=== PATIENT | female | born 1935 | race Caucasian/White ===

== ENCOUNTER → 2017-02-07 | Outpatient (CLI) | payer MEDICARE ==
--- NOTE | 2017-02-13 10:50 | MM ---
Reason for exam: screening (asymptomatic). Last mammogram was performed 8 years and 4 months ago. History: Patient is postmenopausal and history of other cancer. Physical Findings: A clinical breast exam by your physician is recommended on an annual basis and results should be correlated with mammographic findings. MG 3D Screening Mammo W/Cad Bilateral CC and MLO view(s) were taken. Prior study comparison: September 29, 2008, bilateral digital screening mammogram. There are scattered fibroglandular densities. Finding: There are typically benign round, linear calcifications. There is no discrete abnormality. No significant changes in finding since September 29, 2008. ASSESSMENT: Benign, BI-RAD 2 RECOMMENDATION: Routine screening mammogram of both breasts in 1 year.
== END | disposition home or self-care (01) ==
LOC: RADMAMWWP 08:55
PROVIDERS: ATTEND Family Medicine
DX: Z12.31 Encounter for screening mammogram for malignant neoplasm of breast (principal)
CPT/HCPCS: 77063; G0202

== ENCOUNTER → 2017-02-15 | Outpatient (CLI) | payer MEDICARE ==
--- NOTE | 2017-02-15 08:19 | US ---
EXAMINATION TYPE: US abdomen complete DATE OF EXAM: 02/15/2017 COMPARISON: NONE CLINICAL HISTORY: R74.8 Elevated liver enzymes. Post felicitas, no complaints of pain EXAM MEASUREMENTS: Liver Length: 16.6 cm CBD: 0.6 cm Spleen: 8.1 cm Right Kidney: 8.5 x 3.1 x 4.0 cm Left Kidney: 9.0 x 4.4 x 4.2 cm Pancreas: Obscured by bowel gas Liver: wnl Gallbladder: Surgically absent CBD: wnl Spleen: wnl Right Kidney: wnl Left Kidney: wnl Upper IVC: wnl Abd Aorta: some limitations, changes, wnl as seen The pancreas is obscured. The liver is normal in size without biliary dilatation. There has been a previous cholecystectomy. There is a common hepatic duct measures 6 mm. The spleen is normal in size. Both kidneys appear normal. Visualized portions of aorta and IVC are normal. IMPRESSION: STATUS POST CHOLECYSTECTOMY.
== END | disposition home or self-care (01) ==
LOC: RADUSWWP 07:34
PROVIDERS: ATTEND Family Medicine
DX: R94.5 Abnormal results of liver function studies (principal); Z90.49 Acquired absence of other specified parts of digestive tract
CPT/HCPCS: 76700

== ENCOUNTER → 2018-02-21 | Outpatient (CLI) | payer MEDICARE ==
--- NOTE | 2018-02-25 07:56 | MM ---
Reason for exam: screening (asymptomatic). Last mammogram was performed 1 year ago. History: Patient is postmenopausal and history of other cancer. Physical Findings: A clinical breast exam by your physician is recommended on an annual basis and results should be correlated with mammographic findings. MG 3D Screening Mammo W/Cad Bilateral CC and MLO view(s) were taken. Technologist: Roxy Romero RT (R)(M) Prior study comparison: February 07, 2017, bilateral MG 3d screening mammo w/cad. There are scattered fibroglandular densities. Extensive bilateral benign secretory calcifications. No significant changes when compared with prior studies. ASSESSMENT: Benign, BI-RAD 2 RECOMMENDATION: Routine screening mammogram of both breasts in 1 year.
== END | disposition home or self-care (01) ==
LOC: RADMAMWWP 07:39
PROVIDERS: ATTEND Family Medicine
DX: Z12.31 Encounter for screening mammogram for malignant neoplasm of breast (principal)
CPT/HCPCS: 77063; 77067

== ENCOUNTER 2020-10-14 10:29 | Inpatient (IN) | payer MEDICARE, OTHER ==
[~2020-10-14 10:29] MED LIST: DEXAMETHASONE SOD PHOSPHATE 4 MG/ML 1 ML VIAL IV ONE; HYDROmorphone 0.5 MG/0.5 ML SYRINGE IVP PRN; LACTATED RINGERS 1,000 ML IV SCH; MIDAZOLAM 2 MG/2 ML VIAL IV PRN; ONDANSETRON 4 MG/2 ML VIAL IVP ONE
[2020-10-14] MEDS ORDERED: LIDOCAINE 1% (10MG/ML) FOR IV START INTRADERMA ONE (11:03)
[2020-10-14 11:06] LABS: Glucose,Whole Blood 123 mg/dL (75-99)
[2020-10-14] MEDS ORDERED: fentaNYL (PF) 50 MCG/ML 2 ML AMP ONE (12:25)
[2020-10-14] MEDS ORDERED: DEXAMETHASONE SOD PHOSPHATE 4 MG/ML 1 ML VIAL ONE (12:25)
[2020-10-14] MEDS ORDERED: ePHEDrine SULFATE/0.9% NACL/PF 50 MG/5 ML SYRINGE IV ONE (12:25)
[2020-10-14] MEDS ORDERED: PROPOFOL 10 MG/ML 20 ML VIAL IV ONE (12:25)
[2020-10-14] MEDS ORDERED: ROPIVACAINE 5 MG/ML 30 ML VIAL ONE (12:25)
[2020-10-14] MEDS ORDERED: LIDOCAINE 1% INJ 10MG/ML (20 ML MDV) ONE (12:25)
[2020-10-14] MEDS ORDERED: LACTATED RINGERS 1,000 ML IV ONE (14:06)
--- NOTE | 2020-10-14 14:09 | P.ANPRN ---
Procedure Note - Anesthesia - Nerve Block Performed Right Adductor Canal Single Time Out Performed: Yes (1144) Date of Procedure: 10/14/20 Procedure Start Time: 11:51 Procedure Stop Time: 11:54 Location of Patient: PreOp Indication: Acute Post-Operative Pain, Requested by Surgeon Specifically requested for management of pain by DrManju: Ellis Crump Sedation Type: Sedate with meaningful contact maintained Preparation: Sterile Prep Position: Supine Catheter: None Needle Types: Pajunk Needle Gauge: 21 Ultrasound used to visualize needle placement: Yes Ultrasound used to observe medication spread: Yes Injectate: 0.5% Ropivacaine (see comment for volume) (20cc decadron 4mg) Blood Aspirated: No Pain Paresthesia on Injection Noted: No Resistance on Injection: Normal Image Stored and Saved: Yes Events: Uneventful and Well Tolerated Right Popliteal Single Time Out Performed: Yes (1144) Date of Procedure: 10/14/20 Procedure Start Time: 11:45 Procedure Stop Time: 11:50 Location of Patient: PreOp Indication: Acute Post-Operative Pain, Requested by Surgeon Specifically requested for management of pain by Dr.: Ellis Crump Sedation Type: Sedate with meaningful contact maintained Preparation: Sterile Prep Position: Left Lateral Catheter: None Needle Types: Pajunk Needle Gauge: 21 Ultrasound used to visualize needle placement: Yes Ultrasound used to observe medication spread: Yes Injectate: 0.5% Ropivacaine (see comment for volume) (20cc decadron 4mg) Blood Aspirated: No Pain Paresthesia on Injection Noted: No Resistance on Injection: Normal Image Stored and Saved: Yes Events: Uneventful and Well Tolerated
[2020-10-14] MEDS ORDERED: HYDROmorphone 0.5 MG/0.5 ML SYRINGE IVP PRN ×2 (14:21)
[2020-10-14] MEDS ORDERED: HYDROmorphone 0.2 MG/1 ML SYRINGE IVP PRN (14:21)
[2020-10-14] MEDS ORDERED: diphenhydrAMINE 25 MG CAP PO PRN (14:21)
[2020-10-14] MEDS ORDERED: ONDANSETRON 4 MG/2 ML VIAL IVP PRN (14:21)
[2020-10-14] MEDS ORDERED: TEMAZEPAM 15 MG CAP PO PRN (14:21)
--- NOTE | 2020-10-14 14:29 | XR ---
Fluoroscopy INDICATION: Pain FINDINGS: Fluoroscopy time: 10 seconds. Images obtained: 2. IMPRESSIONS: 1. Documentation of fluoroscopy.
--- NOTE | 2020-10-14 14:29 | FL ---
Fluoroscopy INDICATION: Pain FINDINGS: Fluoroscopy time: 10 seconds. Images obtained: 0. IMPRESSIONS: 1. Documentation of fluoroscopy.
[2020-10-14 14:32] LABS: Glucose,Whole Blood 126 mg/dL (75-99)
[2020-10-14] MEDS: LACTATED RINGERS 1,000 ML IV SCH (15:52)
[2020-10-14 16:42] LABS: Glucose,Whole Blood 141 mg/dL (75-99)
[2020-10-14] MEDS: metFORMIN 500 MG TAB PO SCH (17:29)
[2020-10-14 20:31] LABS: Glucose,Whole Blood 151 mg/dL (75-99)
[2020-10-14] MEDS: amLODIPine 5 MG TAB PO SCH (21:51)
[2020-10-14] MEDS: ATORVASTATIN 40 MG TAB PO SCH (21:51)
[2020-10-14] MEDS: ASPIRIN 325 MG TAB PO SCH (21:51)
[2020-10-15] MEDS: LACTATED RINGERS 1,000 ML IV SCH ×3 (01:31→19:47)
[2020-10-15] MEDS: HYDROcodone/APAP 5-325MG 1 EACH TAB PO PRN ×3 (05:41→20:51)
[2020-10-15] MEDS: LEVOTHYROXINE 75 MCG TAB PO SCH (05:42)
[2020-10-15 07:41] LABS: Glucose,Whole Blood 157 mg/dL (75-99)
[2020-10-15] MEDS: LINAGLIPTIN 5 MG TABLET PO SCH (08:38)
[2020-10-15] MEDS: POTASSIUM CHLORIDE ER 10 MEQ TAB.ER.PRT PO SCH (08:38)
[2020-10-15] MEDS: CHOLECALCIFEROL 25 MCG (1000 IU) TABLET PO SCH (08:38)
[2020-10-15] MEDS: lisinopriL 20 MG TAB PO SCH (08:38)
[2020-10-15] MEDS: metFORMIN 500 MG TAB PO SCH ×2 (08:38→16:50)
[2020-10-15] MEDS: CYANOCOBALAMIN 500 MCG TAB PO SCH (08:39)
[2020-10-15] MEDS: EZETIMIBE 10 MG TAB PO SCH (08:39)
--- NOTE | 2020-10-15 08:42 | P.PN ---
Subjective Progress Note Date: 10/15/20 Principal diagnosis: Status post right ankle ORIF This is a 85 year-old female post right ankle ORIF. This is post-op day 1. The patient was evaluated at the bedside today. The patient denies nausea, vomiting, abdominal pain, shortness of breath, and chest pain this morning. She states her pain is moderately controlled at this time. Physical therapy was in the room with the patient this morning. Objective - Vital Signs Vital signs: Vital Signs Temp 97.7 F 10/15/20 08:00 Pulse 104 H 10/15/20 08:00 Resp 16 10/15/20 08:00 BP 166/73 10/15/20 08:00 Pulse Ox 96 10/15/20 08:00 Intake & Output 10/14/20 10/15/20 10/15/20 18:59 06:59 18:59 Intake Total 1350 Output Total 10 Balance 1340 Weight 71.214 kg Intake: IV 1350 Output: Estimated Blood Loss 10 Other: Voiding Method Bedpan # Voids 1 4 - Exam The patient does not appear in acute distress. Alert and orientated x3. Splint is clean dry and intact. She is able to wiggle her toes without difficulty. Sensation and circulatory status is intact. - Labs Labs: Abnormal Lab Results - Last 24 Hours (Table) 10/14/20 10/14/20 10/14/20 Range/Units 11:05 14:30 16:40 POC Glucose (mg/dL) 123 H 126 H 141 H (75-99) mg/dL 10/14/20 10/15/20 Range/Units 20:30 07:38 POC Glucose (mg/dL) 151 H 157 H (75-99) mg/dL Assessment and Plan (1) Closed right ankle fracture Current Visit: Yes Status: Acute Code(s): S82.891A - OTH FRACTURE OF RIGHT LOWER LEG, INIT FOR CLOS FX SNOMED Code(s): 65491829 (2) Status post ORIF of fracture of ankle Current Visit: Yes Status: Acute Code(s): Z98.890 - OTHER SPECIFIED POSTPROCEDURAL STATES; Z87.81 - PERSONAL HISTORY OF (HEALED) TRAUMATIC FRACTURE SNOMED Code(s): 864166013 Plan: 1. Continue pain control 2. Anticoagulation with Aspirin 325mg daily 3. Start physical therapy and ambulation, nonweightbearing to the right lower extremity. 4. Ice and elevate right ankle 5. Anticipate discharge to skilled rehab on Saturday.
[2020-10-15 11:56] LABS: Glucose,Whole Blood 172 mg/dL (75-99)
--- NOTE | 2020-10-15 12:28 | P.CONS ---
History of Present Illness - Reason for Consult Consult date: 10/15/20 Medical management - History of Present Illness This is an 85-year-old patient who underwent a right ankle ORIF. This is postop day 1. Patient states on Saturday she was walking down the stairs with her and her slipped on the last step pulling her down with him. Her landed on her right foot causing a fracture. Patient was seen in the ER where a OCL was placed and was instructed to follow up with orthopedics the next day. Patient was then seen on Saturday by Dr. Crump who instructed her to come to the hospital for a ORIF of the right ankle. She has been utilizing a cane due to weakness and ability to walk at home for the past few weeks. Patient also is complaining of neck shoulder and hip pain. As time patient is found resting in bed in no acute distress. Patient states that her pain is well managed. She is on postop day 1. As an afebrile, blood pressure 166/73, pulse rate of 94, pulse oxing 96% on room air. Review Of Systems: Constitutional: No fever, no chills, no night sweats. No weight change. No weakness, fatigue or lethargy. No daytime sleepiness. EENT: No headache. No blurred vision or double vision, no loss of vision. No loss of Hearing, no ringing in the ears, no dizziness. No nasal drainage or congestion. No epistaxis. No sore throat. Lungs: No shortness of breath, cough, no sputum production. No wheezing. Cardiovascular: No chest pain, no lower extremity edema. No palpitations. No paroxysmal nocturnal dyspnea. No orthopnea. No lightheadedness or dizziness. No syncopal episodes. Abdominal: no abdominal discomfort. No nausea, vomiting. no diarrhea. No constipation. No bloody or tarry stools. no loss of appetite. Genitourinary: No dysuria, increased frequency, urgency. No urinary retention. Musculoskeletal: No myalgias. No muscle weakness, no gait dysfunction, no frequent falls. No back pain. No neck pain. Integumentary: No wounds, no lesions. No rash or pruritus. No unusual bruising. No change in hair or nails. Neurologic: No aphasia. No facial droop. No change in mentation. No head injury. No headache. No paralysis. No paresthesia. Psychiatric: No depression. No anxiety. No mood swings. Endocrine: No abnormal blood sugars. No weight change. No excessive sweating or thirst. Physical Exam General Appearance: Alert, cooperative, no distress, appears stated age. Neck HEENT: Supple, no lymphadenopathy, no thyroid enlargement, no carotid bruits. Lungs: Clear to auscultation without crackles or wheezes no rhonchi, no deformity. Chest Wall: Chest wall normal expansion with deep inspiration no tenderness and no deformity was found on exam, no costochondral pain or discomfort. Heart: Regular rate and rhythm, S1, S2 normal, no murmur, rub or gallop. Back: Symmetric, no curvature, ROM normal, no CVA tenderness. Abdomen: Soft, non-tender, no rebound or rigidity, no hepatosplenomegaly. Extremities: Right lower extremity cast/dressing in place clean and dry, po sitive sensation and circulatory status intact Extremities normal, atraumatic, no cyanosis or edema. Pulses: 2+ and symmetric. Skin: Skin color, texture, tugor normal, no rashes or lesions. Neurologic: Alert oriented x3 cranial nerves II through XII intact, no motor deficit, Assessment/plan: 1. Closed right ankle fracture status post ORIF postop day 1. Continue with pa in management. Patient to start physical therapy and ambulation nonweightbearing status to the right lower extremity. 2. Diabetes mellitus. glucose monitoring before meals at bedtime Metformin 500 mg by mouth before meals twice a day Janumet 50 mg by mouth daily 3. Hyperlipidemia. Continue simvastatin 80 mg by mouth at bedtime, that he 4. Hypertension. Continue amlodipine 5 mg by mouth at bedtime, enalapril 20 mg by mouth a.m., aspirin 325, K-Dur 10 meq daily, 5. Hyperthyroidism. Levothyroxine 75 g by mouth 6. GI prophylaxis. Pepcid 20 mg by mouth daily 7. DVT prophylaxis. pneumatic Compression garment CODE Status: No Code Discharge plan: More than likely subacute rehab on Saturday. Impression and plan of care have been directed as dictated by the signing physician. Jackie Bull nurse practitioner acting as scribe for signing physician. Past Medical History Past Medical History: Diabetes Mellitus, Hyperlipidemia, Hypertension History of Any Multi-Drug Resistant Organisms: None Reported Past Surgical History: Back Surgery, Heart Catheterization With Stent, Hyste rectomy Additional Past Surgical History / Comment(s): 3 cardiac stents. Cystocele repair, right ankle ORIF (10/14/20) Past Anesthesia/Blood Transfusion Reactions: No Reported Reaction Date of Last Stent Placement:: 2014 Past Psychological History: No Psychological Hx Reported Smoking Status: Never smoker Past Alcohol Use History: None Reported Past Drug Use History: None Reported - Past Family History Daughter(s) Family Medical History: Cancer Additional Family Medical History / Comment(s): Cervical and kidney cancer. Medications and Allergies Home Medications Medication Instructions Recorded Confirmed Type Aspirin 325 mg PO HS 10/11/20 10/14/20 History Cholecalciferol [Vitamin D3 (25 50 mcg PO DAILY 10/11/20 10/14/20 History Mcg = 1000 Iu)] Cyanocobalamin (Vitamin B-12) 3,000 mcg PO DAILY 10/11/20 10/14/20 History [Vitamin B-12] Enalapril [Vasotec] 20 mg PO QAM 10/11/20 10/14/20 History Ezetimibe [Zetia] 10 mg PO DAILY 10/11/20 10/14/20 History Janumet 50 mg PO BID 10/11/20 10/14/20 History Levothyroxine Sodium [Synthroid] 75 mcg PO QAM 10/11/20 10/14/20 History Potassium Gluconate 99 mg PO DAILY 10/11/20 10/14/20 History Simvastatin 80 mg PO HS 10/11/20 10/14/20 History Vit C/E/Zn/Coppr/Lutein/Zeaxan 1 each PO BID 10/11/20 10/14/20 History [Preservision Areds 2 Softgel] amLODIPine BESYLATE 5 mg PO HS 10/11/20 10/14/20 History Allergies Allergy/AdvReac Type Severity Reaction Status Date / Time clopidogrel [From Plavix] Allergy Rash/Hives Verified 10/14/20 10:44 Physical Exam Vitals: Vital Signs Temp Pulse Resp BP Pulse Ox 10/15/20 08:00 97.7 F 104 H 16 166/73 96 10/15/20 01:55 97.8 F 94 18 153/70 95 10/14/20 19:20 18 10/14/20 19:07 97.2 F L 78 15 153/71 97 10/14/20 17:15 70 152/71 99 10/14/20 17:00 72 151/72 99 10/14/20 16:45 73 163/71 97 10/14/20 16:30 74 148/67 93 L 10/14/20 16:15 71 154/72 98 10/14/20 16:00 74 152/72 96 10/14/20 15:45 75 161/70 97 10/14/20 15:30 98 F 74 16 165/71 99 10/14/20 15:05 70 16 136/63 95 10/14/20 14:50 70 16 141/56 97 10/14/20 14:34 69 14 148/67 100 10/14/20 14:19 97 F L 74 14 155/70 95 Intake and Output 10/14/20 10/15/20 10/15/20 22:59 06:59 14:59 Other: Voiding Method Bedpan # Voids 1 4 Weight 71.214 kg Results Labs: Abnormal Lab Results - Last 24 Hours (Table) 10/14/20 10/14/20 10/14/20 Range/Units 14:30 16:40 20:30 POC Glucose (mg/dL) 126 H 141 H 151 H (75-99) mg/dL 10/15/20 10/15/20 Range/Units 07:38 11:40 POC Glucose (mg/dL) 157 H 172 H (75-99) mg/dL
[2020-10-15 17:10] LABS: Glucose,Whole Blood 98 mg/dL (75-99)
[2020-10-15] MEDS: amLODIPine 5 MG TAB PO SCH (20:51)
[2020-10-15] MEDS: ATORVASTATIN 40 MG TAB PO SCH (20:51)
[2020-10-15] MEDS: SENNOSIDES-DOCUSATE SODIUM 1 EACH TAB PO PRN (20:51)
[2020-10-15] MEDS: ASPIRIN 325 MG TAB PO SCH (20:51)
[2020-10-15 20:57] LABS: Glucose,Whole Blood 144 mg/dL (75-99)
[2020-10-16] MEDS: LACTATED RINGERS 1,000 ML IV SCH ×3 (05:32→22:18)
[2020-10-16] MEDS: HYDROcodone/APAP 5-325MG 1 EACH TAB PO PRN ×2 (05:34→14:51)
[2020-10-16] MEDS: LEVOTHYROXINE 75 MCG TAB PO SCH (05:34)
[2020-10-16] MEDS ORDERED: FUROSEMIDE 10 MG/ML 4 ML VIAL IV STA (06:22)
[2020-10-16] MEDS: NITROGLYCERIN SL TABS 0.4 MG TAB SUBLINGUAL PRN ×2 (06:27→06:32)
[2020-10-16 06:40] LABS: Glucose,Whole Blood 134 mg/dL (75-99)
--- NOTE | 2020-10-16 06:57 | XR ---
EXAM: XR Chest, 1 View CLINICAL HISTORY: ITS.REASON XR Reason: chest pain TECHNIQUE: Frontal view of the chest. COMPARISON: No relevant prior studies available. FINDINGS: Lungs: Mild diffuse perihilar reticular opacities. Pleural space: Unremarkable. No pneumothorax. Heart: Mild cardiomegaly. Mediastinum: Unremarkable. Bones/joints: Unremarkable. IMPRESSION: Cardiomegaly with diffuse perihilar reticular opacities consistent with interstitial edema. No pleural effusions or pneumothorax.
[2020-10-16] MEDS ORDERED: NITROGLYCERIN OINT 1 INCH/GM PACKET TOPICAL STA (08:50)
--- NOTE | 2020-10-16 08:52 | P.PN ---
Subjective Progress Note Date: 10/16/20 Principal diagnosis: Status post right ankle ORIF This is a 85 year-old female post right ankle ORIF. This is post-op day 2. The patient was evaluated at the bedside today. She states she suddenly experienced chest pain and arm pain early this morning. She was given Nitro and her symptoms have improved. The patient states she is very tired now. The patient denies nausea, vomiting, or abdominal pain this morning. She states her ankle pain is controlled at this time. Troponin was 0.062 and D-dimer was 6.37. She is being closely followed by Dr. Rojas. Objective - Vital Signs Vital signs: Vital Signs Temp 97.5 F L 10/16/20 08:02 Pulse 69 10/16/20 08:02 Resp 16 10/16/20 08:02 BP 132/64 10/16/20 08:02 Pulse Ox 96 10/16/20 08:02 Intake & Output 10/15/20 10/16/20 10/16/20 18:59 06:59 18:59 Intake Total 200 Output Total 1 Balance 199 Intake: Oral 200 Output: Urine 1 Other: Voiding Method Bedpan Bedpan # Voids 1 - Exam The patient does not appear in acute distress but is very pale and fatigued this morning. Alert and orientated x3. Splint is clean dry and intact. She is able to wiggle her toes without difficulty. Sensation and circulatory status is intact. - Labs Labs: Abnormal Lab Results - Last 24 Hours (Table) 10/15/20 10/15/20 10/16/20 Range/Units 11:40 20:56 06:31 D-Dimer (<0.60) mg/L FEU POC Glucose (mg/dL) 172 H 144 H 134 H (75-99) mg/dL Troponin I (0.000-0.034) ng/mL 10/16/20 10/16/20 Range/Units 06:52 06:52 D-Dimer 6.37 H (<0.60) mg/L FEU POC Glucose (mg/dL) (75-99) mg/dL Troponin I 0.062 H* (0.000-0.034) ng/mL Assessment and Plan (1) Closed right ankle fracture Current Visit: Yes Status: Acute Code(s): S82.891A - OTH FRACTURE OF RIGHT LOWER LEG, INIT FOR CLOS FX SNOMED Code(s): 52061145 (2) Status post ORIF of fracture of ankle Current Visit: Yes Status: Acute Code(s): Z98.890 - OTHER SPECIFIED POSTPROCEDURAL STATES; Z87.81 - PERSONAL HISTORY OF (HEALED) TRAUMATIC FRACTURE SNOMED Code(s): 965808623 Plan: 1. Continue pain control 2. Anticoagulation with Aspirin 325mg daily 3. Continue physical therapy and ambulation, nonweightbearing to the right lower extremity, as tolerated and when medically stable. 4. Ice and elevate right ankle 5. Anticipate discharge to skilled rehab when medically stable in the next 1-2 days.
[2020-10-16] MEDS ORDERED: ENOXAPARIN 80 MG/0.8 ML SYRINGE SQ STA (08:59)
[2020-10-16] MEDS: CYANOCOBALAMIN 500 MCG TAB PO SCH (09:02)
[2020-10-16] MEDS: lisinopriL 20 MG TAB PO SCH (09:02)
[2020-10-16] MEDS: CHOLECALCIFEROL 25 MCG (1000 IU) TABLET PO SCH (09:02)
[2020-10-16] MEDS: LINAGLIPTIN 5 MG TABLET PO SCH (09:03)
[2020-10-16] MEDS: metFORMIN 500 MG TAB PO SCH ×2 (09:03→16:53)
[2020-10-16] MEDS: POTASSIUM CHLORIDE ER 10 MEQ TAB.ER.PRT PO SCH (09:03)
[2020-10-16 09:21] LABS: African American GFR (CKD) 32 (>60 ml/min/1.73 sqM); Anion Gap 9 mmol/L; Blood Urea Nitrogen 33 mg/dL (7-17); Calcium 10.1 mg/dL (8.4-10.2); Carbon Dioxide 24 mmol/L (22-30); Chloride 105 mmol/L (98-107); Glucose 126 mg/dL (74-99); Non-African American GFR(CKD) 28 (>60 ml/min/1.73 sqM); Potassium 4.7 mmol/L (3.5-5.1); Sodium 138 mmol/L (137-145)
[2020-10-16] MEDS: EZETIMIBE 10 MG TAB PO SCH (10:28)
--- NOTE | 2020-10-16 11:21 | P.PN ---
Subjective Progress Note Date: 10/16/20 This is an 85-year-old patient who underwent a right ankle ORIF. This is postop day 1. Patient states on Saturday she was walking down the stairs with her and her slipped on the last step pulling her down with him. Her landed on her right foot causing a fracture. Patient was seen in the ER where a OCL was placed and was instructed to follow up with orthopedics the next day. Patient was then seen on Saturday by Dr. Crump who instructed her to come to the hospital for a ORIF of the right ankle. She has been utilizing a cane due to weakness and ability to walk at home for the past few weeks. Patient also is complaining of neck shoulder and hip pain. As time patient is found resting in bed in no acute distress. Patient states that her pain is well managed. She is on postop day 1. As an afebrile, blood pressure 166/73, pulse rate of 94, pulse oxing 96% on room air. 10/16: This morning patient developed shortness of breath with wheezing her pulse ox dropped. She was given 40 of Lasix and nitroglycerin under the time. EKG was ordered, troponin which was 0.062, d-dimer 6.37, chest x-ray shows cardiomegaly with diffuse perihilar reticular opacities consistent with interstitial edema. No pleural effusion or pneumothorax. At this time patient is stating she is feeling much better denies chest pain.. She does state that she has chest pain at times it starts from the right arm radiating to the chest. States that she felt better after the nitro was given. Nitro paste will be applied. Lovenox 80 mg given. Review Of Systems: Constitutional: No fever, no chills, no night sweats. No weight change. No weakness, fatigue or lethargy. No daytime sleepiness. EENT: No headache. No blurred vision or double vision, no loss of vision. No loss of Hearing, no ringing in the ears, no dizziness. No nasal drainage or congestion. No epistaxis. No sore throat. Lungs: No shortness of breath, cough, no sputum production. No wheezing. Cardiovascular: No chest pain, no lower extremity edema. No palpitations. No paroxysmal nocturnal dyspnea. No orthopnea. No lightheadedness or dizziness. No syncopal episodes. Abdominal: no abdominal discomfort. No nausea, vomiting. no diarrhea. No constipation. No bloody or tarry stools. no loss of appetite. Genitourinary: No dysuria, increased frequency, urgency. No urinary retention. Musculoskeletal: No myalgias. No muscle weakness, no gait dysfunction, no frequent falls. No back pain. No neck pain. Integumentary: No wounds, no lesions. No rash or pruritus. No unusual bruis ing. No change in hair or nails. Neurologic: No aphasia. No facial droop. No change in mentation. No head injury. No headache. No paralysis. No paresthesia. Psychiatric: No depression. No anxiety. No mood swings. Endocrine: No abnormal blood sugars. No weight change. No excessive sweating or thirst. Physical Exam General Appearance: Alert, cooperative, no distress, appears stated age. Neck HEENT: Supple, no lymphadenopathy, no thyroid enlargement, no carotid bruit s. Lungs: Clear to auscultation without crackles or wheezes no rhonchi, no deformity. Chest Wall: Chest wall normal expansion with deep inspiration no tenderness and no deformity was found on exam, no costochondral pain or discomfort. Heart: Regular rate and rhythm, S1, S2 normal, no murmur, rub or gallop. Back: Symmetric, no curvature, ROM normal, no CVA tenderness. Abdomen: Soft, non-tender, no rebound or rigidity, no hepatosplenomegaly. Extremities: Right lower extremity cast/dressing in place clean and dry, positive sensation and circulatory status intact Extremities normal, atraumatic, no cyanosis or edema. Pulses: 2+ and symmetric. Skin: Skin color, texture, tugor normal, no rashes or lesions. Neurologic: Alert oriented x3 cranial nerves II through XII intact, no motor deficit, Assessment/plan: 1. Closed right ankle fracture status post ORIF postop day 1. Continue with pain management. Patient to start physical therapy and ambulation nonweightbearing status to the right lower extremity. 2. Shortness of breath etiology unknown possible embolism or myocardial infarction. EKG ordered, troponin ordered an elevated, d-dimer ordered elevated chest x-ray impression noted above, CTA ordered, Lovenox 80 mg given. Repeat troponin and BNP at noon. 2. Diabetes mellitus. glucose monitoring before meals at bedtime Metformin 500 mg by mouth before meals twice a day Janumet 50 mg by mouth daily 3. Hyperlipidemia. Continue simvastatin 80 mg by mouth at bedtime, that he 4. Hypertension. Continue amlodipine 5 mg by mouth at bedtime, enalapril 20 mg by mouth a.m., aspirin 325, K-Dur 10 meq daily, 5. Hyperthyroidism. Levothyroxine 75 g by mouth 6. GI prophylaxis. Pepcid 20 mg by mouth daily 7. DVT prophylaxis. pneumatic Compression garment, Lovenox 80 mg CODE Status: No Code Discharge plan: More than likely subacute rehab on Saturday. Impression and plan of care have been directed as dictated by the signing physician. Jackie Bull nurse practitioner acting as scribe for signing physician. Objective - Vital Signs Vital signs: Vital Signs Temp 97.5 F L 10/16/20 08:02 Pulse 69 10/16/20 08:02 Resp 16 10/16/20 08:02 BP 132/64 10/16/20 08:02 Pulse Ox 96 10/16/20 08:02 Intake & Output 10/15/20 10/16/20 10/16/20 18:59 06:59 18:59 Intake Total 200 Output Total 1 Balance 199 Intake: Oral 200 Output: Urine 1 Other: Voiding Method Bedpan Bedpan # Voids 1 - Labs CBC & Chem 7: 10/16/20 06:52 Labs: Abnormal Lab Results - Last 24 Hours (Table) 10/15/20 10/15/20 10/16/20 Range/Units 11:40 20:56 06:31 D-Dimer (<0.60) mg/L FEU BUN (7-17) mg/dL Creatinine (0.52-1.04) mg/dL Glucose (74-99) mg/dL POC Glucose (mg/dL) 172 H 144 H 134 H (75-99) mg/dL Troponin I (0.000-0.034) ng/mL 10/16/20 10/16/20 10/16/20 Range/Units 06:52 06:52 06:52 D-Dimer 6.37 H (<0.60) mg/L FEU BUN 33 H (7-17) mg/dL Creatinine 1.70 H (0.52-1.04) mg/dL Glucose 126 H (74-99) mg/dL POC Glucose (mg/dL) (75-99) mg/dL Troponin I 0.062 H* (0.000-0.034) ng/mL
[2020-10-16 11:33] LABS: Glucose,Whole Blood 129 mg/dL (75-99)
--- NOTE | 2020-10-16 13:38 | NM ---
EXAMINATION TYPE: NM pul vent and perfuse DATE OF EXAM: 10/16/2020 COMPARISON: Chest x-ray same day HISTORY: Chest pain, difficulty breathing and cough TECHNIQUE: Utilizing inhalation of 38.9 mCi Tc 9 9m DTPA aerosol and intravenous injection of 5.2 mCi of Tc 99m MAA, ventilation and perfusion images are acquired post injection in multiple projections. FINDINGS: There is central clumping of the radiopharmaceutical suggestive of underlying COPD on ventilation sca nning. Relative homogenous radio pharmaceutical uptake is present on perfusion imaging. No evident ve ntilation/perfusion mismatches. IMPRESSION: Low probability for pulmonary embolus
[2020-10-16 16:45] LABS: Glucose,Whole Blood 133 mg/dL (75-99)
[2020-10-16] MEDS: ASPIRIN 325 MG TAB PO SCH (20:26)
[2020-10-16] MEDS: amLODIPine 5 MG TAB PO SCH (20:26)
[2020-10-16] MEDS: ATORVASTATIN 40 MG TAB PO SCH (20:26)
[2020-10-16 20:31] LABS: Glucose,Whole Blood 147 mg/dL (75-99)
[2020-10-17] MEDS: HYDROcodone/APAP 5-325MG 1 EACH TAB PO PRN ×3 (05:35→19:05)
[2020-10-17] MEDS: LEVOTHYROXINE 75 MCG TAB PO SCH (05:35)
[2020-10-17] MEDS: CYANOCOBALAMIN 500 MCG TAB PO SCH (07:35)
[2020-10-17] MEDS: EZETIMIBE 10 MG TAB PO SCH (07:36)
[2020-10-17] MEDS: metFORMIN 500 MG TAB PO SCH (07:36)
[2020-10-17] MEDS: LINAGLIPTIN 5 MG TABLET PO SCH (07:36)
[2020-10-17] MEDS: CHOLECALCIFEROL 25 MCG (1000 IU) TABLET PO SCH (07:36)
[2020-10-17] MEDS: lisinopriL 20 MG TAB PO SCH (07:36)
[2020-10-17] MEDS: POTASSIUM CHLORIDE ER 10 MEQ TAB.ER.PRT PO SCH (07:36)
[2020-10-17 07:54] LABS: Glucose,Whole Blood 133 mg/dL (75-99)
[2020-10-17] MEDS ORDERED: FUROSEMIDE 10 MG/ML 2 ML VIAL IV ONE (08:51)
--- NOTE | 2020-10-17 09:22 | P.OP ---
Date of Procedure: 10/14/20 Procedure(s) Performed: ORIF bimalleolar right ankle fx PREOPERATIVE DIAGNOSES: 1. Right ankle lateral and medial malleolus fracture, Valencia B unstable POSTOPERATIVE DIAGNOSES: Right ankle lateral and medial malleolus fracture, Valencia B unstable PROCEDURES PERFORMED: 1. Right ankle lateral malleolus fracture open reduction and internal fixation. 2. Right ankle medial malleolus fracture open reduction and internal fixation ANESTHESIA: cone operator: Cleopatra Bach PA-C (assistance with exposure, hemostasis, retraction, fixation, closure, dressing, splint) COMPLICATIONS: None ESTIMATED BLOOD LOSS: Less than 10 mL. TOURNIQUET: approximately 70 minutes DISPOSITION: To post-anesthesia care unit INDICATIONS: The patient is a 85-year-old female, who presents to the operating room today for fixation of ankle fracture. The fracture is a bimalleolar fracture, with a fracture of the lateral malleolus that is high enough to produce talar instability. She had a fairly widely displaced fracture at the time of the initial injury which was reduced preliminarily in the emergency room and subsequently in the office. I have recommended surgical fixation. I have discussed these issues with the patient, who wishes to proceed with the operative plan. I have explained the details of this surgery thoroughly and also explained the potential risks and complications. These are inclusive of, but not limited to: bleeding, infection, scarring, discomfort, blood vessel and nerve damage, stiffness, weakness, need for further surgery, failure to relieve symptoms, persistence or worsening of problems, , and other risks. The patient is aware of these risks and agrees to proceed with surgery. The consent form has been signed. PROCEDURE: After appropriate consent was obtained, the patient was taken to the operating room and placed supine on the operating table. General anesthesia was initiated. The ankle was removed from the splint and examined for any signs of significant fracture blisters or swelling that would prevent continuation of the surgery. Skin appeared healthy and intact, swellling was moderate but not excessive. The limb was prepped and draped in the usual aseptic fashion with DuraPrep, and the patient was given IV antibiotics. The tourniquet was then inflated to 250 mmHg after careful exsanguination of the limb. Time out was called, confirming patient identity, side, procedure, and administration of antibiotics. Incision was created laterally, centered over the fracture site, for a length of approximately 4 inches. The incision was carried down through skin and into subcutaneous tissues, and blunt dissection then proceeded down to fascia. Fascia was split in line with the incision and the peroneal muscles were retracted posteriorly. The fracture site was exposed with subperiosteal dissection for as much exposure of the bone as was necessary. Fracture hematoma was evacuated and the interior of the fracture site was meticulously cleansed with irrigation and manual extraction of organizing hematoma and bone debris. The fracture was minimally comminuted and oblique in orientation. The fracture was mobilized using a gonzalez elevator and reduction was accomplished using a bone clamp, which was also used to secure the fracture. Anatomic reduction was accomplished. An interfragmentary screw, anterior to posterior, was placed using lag technique. Next, a precontoured fibular plate from [employer] was selected for si ze and side. The proximal holes were filled with fully threaded 3.5 mm cortical screws. Distal holes were filled with 4 2.7 mm locking screws. No evidence of joint penetration on the mini-C-arm views was noted. Next, the medial malleolus was evaluated and treated. An incision was created for approximately 1.5 inches on the medial aspect of the ankle, and carried down through skin sharply and then bluntly using a dissecting scissor down to fascia and periosteum. The fracture fragment was able to be mobilized and secured with a [id number] reduction forceps. Subsequently, a guidepin was placed across the fracture site and several adjustments were made of this guidepin so that the position was perfect on C-arm imaging. The outer cortex was reamed, and appropriately sized 4.0 cannulated cancellus screw(s) with long threads were inserted over the guidepin until they were fully deployed. Final C-arm images were then taken, showing anatomic alignment of the mortise and medial malleolar fracture site. The fracture was noted to be in anatomic position and stress testing under C-arm imaging showed no significant migration, shift, or tilt of the talus with external rotation stress, hindfoot inversion or eversion. Screw lengths were noted to be appropriate and the incision was then irrigated thoroughly using normal saline. Tourniquet was deflated and hemostasis was obtained using electrocautery. Fascial closure was performed with 0-Vicryl suture, subcutaneous closure with 2-0 Vicryl suture. Skin was closed with 4-0 nylon interrupted suture. Sterile dressing was applied and well padded, well molded short leg splint was applied with the ankle in neutral. Patient tolerated the procedure well and taken to recovery room in stable condition. Sponge and needle counts were correct.
--- NOTE | 2020-10-17 10:20 | P.PN ---
Subjective Progress Note Date: 10/17/20 Principal diagnosis: Right ankle fracture. Post op ORIF right ankle. This is a 85 year-old female post right ankle ORIF. This is post-op day 3. The patient was evaluated at the bedside today. She states she suddenly experienced chest pain and arm pain yesterday. She was given Nitro and her symptoms have improved. The patient states she is very tired. The patient denies nausea, vomiting, or abdominal pain this morning. She states her ankle pain is con trolled at this time. Troponin was 0.062 and D-dimer was 6.37. She is being closely followed by Dr. Rojas. We are awaiting clearance for discharge to rehab. Objective - Vital Signs Vital signs: Vital Signs Temp 97.9 F 10/17/20 08:00 Pulse 65 10/17/20 08:00 Resp 16 10/17/20 08:00 BP 145/56 10/17/20 08:00 Pulse Ox 95 10/17/20 08:00 Intake & Output 10/16/20 10/17/20 10/17/20 18:59 06:59 18:59 Intake Total 540 200 Output Total 1350 Balance 540 -1150 Intake: Oral 540 200 Output: Urine 1350 Other: Voiding Method External Catheter External Catheter # Voids 2 3 - Exam This is a pleasant 85-year-old female in no acute distress. She is alert and oriented 3. Exam of the right lower extremity reveals that her splint is intact. She has normal toe motion without difficulty or pain. She has normal sensation to the toes. Capillary refill is less than 3 seconds. - Labs CBC & Chem 7: 10/16/20 06:52 Labs: Abnormal Lab Results - Last 24 Hours (Table) 10/16/20 10/16/20 10/16/20 Range/Units 11:32 14:21 16:44 POC Glucose (mg/dL) 129 H 133 H (75-99) mg/dL Troponin I 0.063 H* (0.000-0.034) ng/mL 10/16/20 10/17/20 Range/Units 20:29 07:24 POC Glucose (mg/dL) 147 H 133 H (75-99) mg/dL Troponin I (0.000-0.034) ng/mL Assessment and Plan (1) Closed right ankle fracture Current Visit: Yes Status: Acute Code(s): S82.891A - OTH FRACTURE OF RIGHT LOWER LEG, INIT FOR CLOS FX SNOMED Code(s): 96168876 (2) Status post ORIF of fracture of ankle Current Visit: Yes Status: Acute Code(s): Z98.890 - OTHER SPECIFIED POSTPROCEDURAL STATES; Z87.81 - PERSONAL HISTORY OF (HEALED) TRAUMATIC FRACTURE SNOMED Code(s): 470522509 Plan: The clinical findings are discussed with the patient. She may be discharged to inpatient rehab from an orthopedic standpoint. We are waiting evaluation by cardiology. Continue care and physical therapy.
[2020-10-17 11:14] LABS: Glucose,Whole Blood 131 mg/dL (75-99)
[2020-10-17] MEDS ORDERED: NITROGLYCERIN SL TABS 0.4 MG TAB SUBLINGUAL PRN (12:47)
[2020-10-17] MEDS ORDERED: ALPRAZolam 0.25 MG TAB PO PRN (12:47)
[2020-10-17] MEDS ORDERED: SODIUM CHLORIDE 0.9% 1,000 ML in EMPTY BAG 1 BAG IV ONE (12:47)
[2020-10-17] MEDS ORDERED: ALPRAZolam 0.5 MG TAB PO PRN (12:47)
[2020-10-17] MEDS: ATORVASTATIN 40 MG TAB PO SCH ×2 (12:52→22:16)
--- NOTE | 2020-10-17 13:27 | P.PN ---
Subjective This is an 85-year-old patient who underwent a right ankle ORIF. This is postop day 1. Patient states on Saturday she was walking down the stairs with her and her slipped on the last step pulling her down with him. Her landed on her right foot causing a fracture. Patient was seen in the ER where a OCL was placed and was instructed to follow up with orthopedics the next day. Patient was then seen on Saturday by Dr. Crump who instructed her to come to the hospital for a ORIF of the right ankle. She has been utilizing a cane due to weakness and ability to walk at home for the past few weeks. Patient also is complaining of neck shoulder and hip pain. As time patient is found resting in bed in no acute distress. Patient states that her pain is well managed. She is on postop day 1. As an afebrile, blood pressure 166/73, pulse rate of 94, pulse oxing 96% on room air. 10/17: Postop day #3. VQ scan is low probability for pulmonary embolism. Patient states that she had chest pain yesterday that was relieved with nitroglycerin. EKG was a left bundle branch block. No comparative EKGs available. Patient or dered for Lasix 20 mg IV 1 and then switch to oral. Patient states pain in her ankle comes and goes. She currently denies having any chest pain, shortness of breath. She is not on home oxygen. No cough or sputum production. Troponins were elevated at 0.062 and 0.063. Cardiology consult added. Review Of Systems: Constitutional: No fever, no chills, no night sweats. No weight change. No weakness, fatigue or lethargy. No daytime sleepiness. EENT: No headache. No blurred vision or double vision, no loss of vision. No loss of Hearing, no ringing in the ears, no dizziness. No nasal drainage or congestion. No epistaxis. No sore throat. Lungs: No shortness of breath, cough, no sputum production. No wheezing. Cardiovascular: No chest pain, no lower extremity edema. No palpitations. No paroxysmal nocturnal dyspnea. No orthopnea. No lightheadedness or dizziness. No syncopal episodes. Abdominal: no abdominal discomfort. No nausea, vomiting. no diarrhea. No constipation. No bloody or tarry stools. no loss of appetite. Genitourinary: No dysuria, increased frequency, urgency. No urinary retention. Musculoskeletal: No myalgias. No muscle weakness, no gait dysfunction, no frequent falls. No back pain. No neck pain. Ankle discomfort. Integumentary: No wounds, no lesions. No rash or pruritus. No unusual bruising. No change in hair or nails. Neurologic: No aphasia. No facial droop. No change in mentation. No head injury. No headache. No paralysis. No paresthesia. Psychiatric: No depression. No anxiety. No mood swings. Endocrine: No abnormal blood sugars. No weight change. No excessive sweating or thirst. Physical Exam General Appearance: Alert, cooperative, no distress, appears stated age. Neck HEENT: Supple, no lymphadenopathy, no thyroid enlargement, no carotid bruits. Lungs: Clear to auscultation without crackles or wheezes no rhonchi, no deformity. Chest Wall: Chest wall normal expansion with deep inspiration no tenderness and no deformity was found on exam, no costochondral pain or discomfort. Heart: Regular rate and rhythm, S1, S2 normal, no murmur, rub or gallop. Back: Symmetric, no curvature, ROM normal, no CVA tenderness. Abdomen: Soft, non-tender, no rebound or rigidity, no hepatosplenomegaly. Extremities: Right lower extremity cast/dressing in place clean and dry, positive sensation and circulatory status intact Extremities normal, atraumatic, no cyanosis or edema. Pulses: 2+ and symmetric. Skin: Skin color, texture, tugor normal, no rashes or lesions. Neurologic: Alert oriented x3 cranial nerves II through XII intact, no motor deficit, Assessment/plan: 1. Closed right ankle fracture status post ORIF postop day 1. Continue with pain management. Patient to start physical therapy and ambulation nonweightbearing status to the right lower extremity. 2. Chest pain with elevated troponins. Cardiology consult requested. 3. Diabetes mellitus type II. Continue glucose monitoring before meals at bedtime Tradjenta 5 mg daily. 4. Hyperlipidemia. Continue simvastatin 80 mg by mouth at bedtime, that he 5. Hypertension. Continue amlodipine 5 mg by mouth at bedtime, enalapril 20 mg by mouth a.m., aspirin 325, K-Dur 10 meq daily, 6. Hyperthyroidism. Levothyroxine 75 g by mouth 7. GI prophylaxis. Pepcid 20 mg by mouth daily 8. DVT prophylaxis. pneumatic Compression garment CODE Status: No Code Discharge plan: subacute rehab. Impression and plan of care have been directed as dictated by the signing physician. Fara Escalante nurse practitioner acting as scribe for signing physician. Objective - Vital Signs Vital signs: Vital Signs Temp 97.9 F 10/17/20 08:00 Pulse 65 10/17/20 08:00 Resp 16 10/17/20 08:00 BP 145/56 10/17/20 08:00 Pulse Ox 95 10/17/20 08:00 Intake & Output 10/16/20 10/17/20 10/17/20 18:59 06:59 18:59 Intake Total 540 200 Output Total 1350 Balance 540 -1150 Intake: Oral 540 200 Output: Urine 1350 Other: Voiding Method External Catheter # Voids 2 3 - Labs CBC & Chem 7: 10/16/20 06:52 Labs: Abnormal Lab Results - Last 24 Hours (Table) 10/16/20 10/16/20 10/16/20 Range/Units 06:52 11:32 14:21 BUN 33 H (7-17) mg/dL Creatinine 1.70 H (0.52-1.04) mg/dL Glucose 126 H (74-99) mg/dL POC Glucose (mg/dL) 129 H (75-99) mg/dL Troponin I 0.063 H* (0.000-0.034) ng/mL 10/16/20 10/16/20 10/17/20 Range/Units 16:44 20:29 07:24 BUN (7-17) mg/dL Creatinine (0.52-1.04) mg/dL Glucose (74-99) mg/dL POC Glucose (mg/dL) 133 H 147 H 133 H (75-99) mg/dL Troponin I (0.000-0.034) ng/mL
--- NOTE | 2020-10-17 13:45 | CONS ---
CONSULTATION Mrs. Doyle an 85-year-old female who presented after a fall and fracture of her right ankle. She underwent surgery by Dr. Crump. Cardiology consultation was requested because of an episode of chest discomfort and dyspnea that occurred yesterday. The patient has underwent stenting of her LAD and right coronary artery in the proximal and mid in 2009. She has a history of hypertension, hyperlipidemia, and diabetes mellitus. Yesterday while sitting, she had an episode of chest discomfort radiating to both arms that improved with nitroglycerin. She was short of breath with it. She denies any dizziness or palpitation. No syncope. When she had a fall and a fracture, she did not have any syncopal episode. In the past, her ejection fraction was about 50% with moderate mitral and aortic regurgitation. The patient is pain free at the time of evaluation. She has been followed by Dr. Oliver on a regular basis and was stable when seen last time. Her coronary risk factors are noted for the hypertension, hyperlipidemia, diabetes. She is nonsmoker MEDICATION: Her medications at home included: Aspirin, Vasotec 20 mg daily, Zetia 10 mg daily, Janumet 50 twice a day, Synthroid, potassium, simvastatin, amlodipine 5 mg daily. REVIEW OF SYSTEMS: RESPIRATORY SYSTEM: She had dyspnea on exertion yesterday. She had no wheezing or cough. She had prior history of obstructive lung disease. GI SYSTEM: No recent GI bleeding. No peptic ulcer disease. SYSTEM: No dysuria or hematuria. NERVOUS SYSTEM: No stroke or seizure. PHYSICAL EXAMINATION: She is an 85-year-old female, alert, oriented, in no apparent distress. Blood pressure 145/50 with the heart rate in the 60s. HEAD: Normocephalic. EYES: Sclerae anicteric. NECK: With bilateral bruit. No wheezes. HEART: Regular rate and rhythm. S1, S2. No S3 with systolic ejection murmur 2/6 heard at the base. No rub. ABDOMEN: Soft, nontender. Positive bowel sounds. No organomegaly. EXTREMITIES: Left lower extremity no edema. Right lower extremity with a cast in place. LAB DATA: Lab data revealed a BUN and creatinine 33 and 1.7. Her troponin 0.062, 0.063. Her NT- proBNP 3700. Her EKG revealed left bundle branch block, which has been noted in the past. She had a ventilation perfusion scan that was low probability for pulmonary embolism. IMPRESSION: 1. Non ST-segment elevation myocardial infarction following ankle surgery. 2. Status post ankle surgery for fracture. 3. History of coronary artery disease, status post stenting in 2009. 4. History of hypertension. 5. Hyperlipidemia. 6. Diabetes mellitus. RECOMMENDATION: From the cardiac standpoint, I would continue on the aspirin. I would obtain echocardiogram with Doppler. I would recommend to proceed with coronary angiography. I discussed with the patient those findings. I discussed with her both option of proceeding with cardiac catheterization versus clinical observation. She is in favor of the cardiac catheterization. The risks as well as complication of the procedure were discussed with her. Dr. Oliver is out of town so I will proceed with the procedure. I will repeat her renal function to make sure they are stable and depending on that, further recommendation will be made. Thank you for this consult. We will follow with you. MMODL / IJN: [id number] /
[2020-10-17] MEDS: METOPROLOL TARTRATE 25 MG TAB PO SCH ×2 (14:22→22:18)
[2020-10-17 16:55] LABS: Glucose,Whole Blood 138 mg/dL (75-99)
[2020-10-17] MEDS: INSULIN ASPART (NovoLOG) 100 UNIT/ML VIAL SQ SCH ×2 (17:02→22:16)
[2020-10-17] MEDS: ASPIRIN 81 MG PO SCH (22:16)
[2020-10-17] MEDS: amLODIPine 5 MG TAB PO SCH (22:16)
[2020-10-17 22:22] LABS: Glucose,Whole Blood 132 mg/dL (75-99)
[2020-10-18] MEDS ORDERED: ATORVASTATIN 80 MG TAB PO ONE (05:00)
[2020-10-18] MEDS ORDERED: ASPIRIN 325 MG TAB PO ONE (05:00)
[2020-10-18] MEDS: LINAGLIPTIN 5 MG TABLET PO SCH (05:45)
[2020-10-18] MEDS: INSULIN ASPART (NovoLOG) 100 UNIT/ML VIAL SQ SCH ×4 (05:45→20:57)
[2020-10-18 06:24] LABS: Glucose,Whole Blood 120 mg/dL (75-99)
[2020-10-18] MEDS: METOPROLOL TARTRATE 25 MG TAB PO SCH ×2 (06:46→20:58)
[2020-10-18] MEDS: lisinopriL 20 MG TAB PO SCH (06:46)
[2020-10-18] MEDS: CYANOCOBALAMIN 500 MCG TAB PO SCH (06:46)
[2020-10-18] MEDS: CHOLECALCIFEROL 25 MCG (1000 IU) TABLET PO SCH (06:46)
[2020-10-18] MEDS: LEVOTHYROXINE 75 MCG TAB PO SCH (06:46)
[2020-10-18] MEDS ORDERED: HEPARIN SODIUM,PORCINE 2,500 UNIT in SODIUM CHLORIDE 0.9% 250 ML IRRIGATION PRN (07:00)
[2020-10-18] MEDS ORDERED: HEPARIN SODIUM,PORCINE 10,000 UNIT in SODIUM CHLORIDE 0.9% 1,000 ML IRRIGATION PRN (07:00)
--- NOTE | 2020-10-18 07:33 | ECHOF ---
Referral Reason:cad MEASUREMENTS -------- HEIGHT: 170.2 cm WEIGHT: 71.2 kg BP: IVSd: 1.2 cm (0.6 - 1.1) LVIDd: 3.9 cm (3.9 - 5.3) LVPWd: 1.2 cm (0.6 - 1.1) IVSs: 1.5 cm LVIDs: 2.7 cm LVPWs: 1.5 cm LA Diam: 3.5 cm (2.7 - 3.8) LAESV Index (A-L): 28.04 ml/m MV EXCURSION: 15.618 mm (> 18.000) MV EF SLOPE: 43 mm/s (70 - 150) EPSS: 0.7 cm MV E Dwayne: 0.85 m/s MV DecT: 245 ms MV A Dwayne: 1.04 m/s MV E/A Ratio: 0.82 AV maxP.88 mmHg AV meanP.66 mmHg AR PHT: 416 ms RAP: 5.00 mmHg RVSP: 41.69 mmHg FINDINGS -------- Sinus rhythm. This was a techncally difficult study with suboptimal views, , Lumason utilized for enhancement of im ages. The left ventricular size is normal. There is mild concentric left ventricular hypertrophy. Overa ll left ventricular systolic function is low-normal with, an EF between 50 - 55 %. Mid anterior LV wall motion is hypokinetic. Mid anteroseptal LV wall motion is hypokinetic. The right ventricle is normal in size. Normal LA size by volume 22+/-6 ml/m2. The right atrial size is normal. 5.0mg OF Lumason UTLIZED: 2 OR MORE WALL SEGMENTS NOT VISUALIZED. There is mild aortic valve sclerosis. There is mild aortic regurgitation. There is mild aortic st enosis present. Peak/mean gradient across the Aortic Valve is 19.88mmHg / 10.66mmHg. Mild mitral annular calcification present. Mild mitral regurgitation is present. Udei-op-xpujroyk tricuspid regurgitation present. There is mild pulmonary hypertension. The right ventricular systolic pressure, as measured by Doppler, is 41.69mmHg. The pulmonic valve was not well visualized. There is no pulmonic regurgitation present. The aortic root size is normal. There is no pericardial effusion. CONCLUSIONS -------- 1. This was a techncally difficult study with suboptimal views, , Lumason utilized for enhancement of images. 2. The left ventricular size is normal. 3. There is mild concentric left ventricular hypertrophy. 4. Overall left ventricular systolic function is low-normal with, an EF between 50 - 55 %. 5. Mid anterior LV wall motion is hypokinetic. 6. Mid anteroseptal LV wall motion is hypokinetic. 7. Normal LA size by volume 22+/-6 ml/m2. 8. 5.0mg OF Lumason UTLIZED: 2 OR MORE WALL SEGMENTS NOT VISUALIZED. 9. There is mild aortic regurgitation. 10. There is mild aortic stenosis present. 11. Peak/mean gradient across the Aortic Valve is 19.88mmHg / 10.66mmHg. 12. Mild mitral regurgitation is present. 13. Xcck-tw-unaugtvt tricuspid regurgitation present. 14. There is mild pulmonary hypertension. 15. There is no pericardial effusion. MAINTENANCE LEADER: Siobhan Alfred RDCS
[2020-10-18 07:50] LABS: Calcium 10.6 mg/dL (8.4-10.2); Potassium 4.9 mmol/L (3.5-5.1)
[2020-10-18] MEDS ORDERED: FUROSEMIDE 20 MG TAB PO SCH (09:00)
[2020-10-18] MEDS ORDERED: VERAPAMIL 2.5 MG/ML 2 ML AMP ONE (10:31)
[2020-10-18] MEDS ORDERED: LIDOCAINE 1% INJ 10MG/ML (20 ML MDV) ONE (10:31)
[2020-10-18] MEDS ORDERED: fentaNYL (PF) 50 MCG/ML 2 ML AMP ONE (10:50)
[2020-10-18] MEDS ORDERED: HEPARIN SODIUM 1,000 UN/ML (10ML VL) ONE (10:50)
[2020-10-18] MEDS ORDERED: fentaNYL (PF) 50 MCG/ML 2 ML AMP IV ONE (11:01)
[2020-10-18] MEDS ORDERED: IV FLUID CONTINUATION 600 ML IV ONE (11:01)
[2020-10-18] MEDS ORDERED: LIDOCAINE 1% INJ 10MG/ML (20 ML MDV) SQ ONE (11:03)
[2020-10-18] MEDS ORDERED: VERAPAMIL SYRINGE (5 MG/10 ML) INTRAARTER ONE (11:04)
[2020-10-18] MEDS ORDERED: MIDAZOLAM 2 MG/2 ML VIAL IV ONE (11:05)
[2020-10-18] MEDS: HEPARIN SODIUM 1,000 UN/ML (10ML VL) IV ONE ×2 (11:13→11:39)
[2020-10-18 11:18] LABS: Basophils % (A) 0 %; Eosinophils # (A) 0.6 k/uL (0-0.7); Eosinophils % (A) 7 %; HCT 29.3 % (34.0-46.0); HGB 9.3 gm/dL (11.4-16.0); Lymphocytes # (A) 1.6 k/uL (1.0-4.8); Lymphocytes % (A) 19 %; MCH 30.2 pg (25.0-35.0); MCHC 31.9 g/dL (31.0-37.0); MCV 94.8 fL (80.0-100.0); Mean Platelet Volume 6.9; Monocytes # (A) 0.5 k/uL (0-1.0); Monocytes % (A) 6 %; Neutrophils # (A) 5.7 k/uL (1.3-7.7); Neutrophils % (A) 67 %; Platelet Count 449 k/uL (150-450); RBC 3.09 m/uL (3.80-5.40); RDW 13.7 % (11.5-15.5); WBC 8.5 k/uL (3.8-10.6)
[2020-10-18] MEDS ORDERED: TICAGRELOR 90 MG TAB ONE (11:20)
[2020-10-18] MEDS ORDERED: TICAGRELOR 90 MG TAB PO ONE (11:20)
[2020-10-18] MEDS ORDERED: IOPAMIDOL-370 125ML BTL INJ ONE (11:43)
[2020-10-18] MEDS ORDERED: IOPAMIDOL-370 100ML BTL INJ ONE (11:55)
[2020-10-18] MEDS ORDERED: RX INFO: IV CONTRAST WAS GIVEN 1 EACH MISC MISCELLANE PRN (12:09)
[2020-10-18] MEDS ORDERED: ZOLPIDEM 5 MG TAB PO PRN (12:09)
[2020-10-18] MEDS ORDERED: ATROPINE SULFATE 0.1 MG/ML 10ML SYRINGE IV PRN (12:09)
[2020-10-18] MEDS ORDERED: MAG HYDROX/AL HYDROX/SIMETH 30 ML CUP PO PRN (12:09)
[2020-10-18] MEDS ORDERED: NITROGLYCERIN SL TABS 0.4 MG TAB SUBLINGUAL PRN (12:09)
[2020-10-18] MEDS ORDERED: SODIUM CHLORIDE 0.9% 1,000 ML IV SCH (12:15)
--- NOTE | 2020-10-18 12:32 | CC ---
CARDIAC CATHETERIZATION REPORT Mrs. Doyle is an 85-year-old female with known history of coronary artery disease who presented to undergo right ankle surgery after fracture. After the surgery, she had an episode of chest discomfort with radiation to both arms and mild troponin elevation. In view of that, recommendation was made regarding cardiac catheterization. The procedure as well as the risks and the complications were discussed with the patient who is in full understanding and agreement. PROCEDURE: Patient was brought to the [facility] in a fasting semi-sedated state after receiving fentanyl and Benadryl and achieving moderate conscious state. Using Xylocaine anesthesia and Seldinger technique, a 6-German sheath was introduced in the right radial artery. Selective right and left coronary angiography were performed using 5- German 3.5 bend right and left Brock catheter. Multiple views of the coronary artery including hemiaxial views were obtained. Following that, catheters were removed and images were reviewed. FINDINGS: LEFT MAIN: This is a large-size vessel, bifurcating into left circumflex, left anterior descending artery. Left main coronary artery has no evidence of high-grade stenosis. LEFT ANTERIOR DESCENDING ARTERY: This is a large-size vessel reaching to the apex with a wraparound apex segment giving rise to a large diagonal branch proximally. The stented segment of the LAD is patent. There is about 20% to 30% plaque at the takeoff of the diagonal branch. The rest of the vessel has no high-grade stenosis. LEFT CIRCUMFLEX: This is a large nondominant vessel giving rise to a large obtuse marginal branch. The obtuse marginal branch has tubular lesion up to 90% stenosis. The rest of the vessel has no high-grade stenosis. RIGHT CORONARY ARTERY: This is a dominant vessel bifurcating distally PDA and posterolateral segment and branches. The right coronary artery stented segment of the proximal mid area is patent. Proximal to the stent, there is a 70% to 80% stenosis. The rest of the vessel has no high-grade stenosis. LEFT VENTRICULOGRAM: Left ventriculogram was not performed. CONCLUSION: 1. Critical stenosis in the obtuse marginal branch. 2. Critical stenosis in the proximal right coronary artery. 3. Patent stent to the left anterior descending artery and to the mid right coronary artery. RECOMMENDATION: In view of finding anatomy, I recommend proceeding with angioplasty and stenting of the RCA and the OM 1. The procedures, risks, and complication were discussed with the patient who is in full understanding and agreement. MMODL / IJN: [id number] /
--- NOTE | 2020-10-18 12:36 | PTCA ---
PERCUTANEOUSTRANS CORORONARY ANGIOGRAPHY Mrs. Doyle is an 85-year-old female with a known history of coronary artery disease who underwent surgery for her fractured right ankle and post surgery she had evidence of non ST-segment elevation myocardial infarction. In view of that, she underwent cardiac catheterization was found to have critical stenosis involving the proximal right coronary artery and the OM1. Recommendation was made regarding angioplasty and stenting. The procedure as well as risks and the complications were discussed with the patient who was in full understanding and agreement. PROCEDURE: A 6-Ethiopian FR4 guiding catheter introduced in the system. After cannulating the ostium of the right coronary artery, 0.014 balanced medium weight J-wire was advanced across the lesion positioned distally, but then attempt to advance a 3.0 x 15 mm Xience Addis stent was unsuccessful. That stent was removed and a 2.5 x 12 mm NC Trek balloon was advanced and one inflation at 10 atmospheres was done. Following that, the balloon was removed and a 3.0 x 15 mm Xience Addis stent was advanced, deployed and post-dilated at 16 atmospheres. After the last inflation, after appropriate wait, the balloon was pulled back in the guiding catheter. Images were obtained and repeated. Those images reveal stable successful stenting. At that point, the guiding catheter, the balloon and the guidewire were removed and a 6-Ethiopian FL 3.5 guiding catheter introduced in the system. After cannulating the left main, the 0.014 balanced medium weight J-wire was advanced and positioned in distal left circumflex. Subsequently another 0.014 balanced medium weight J-wire was advanced and positioned in the OM1. Subsequently, the 2.5 x 12 mm NC Trek balloon was advanced and 2 inflations at 10 atmospheres were done. Following that, the balloon was removed and a 3.0 x 18 mm Xience Addis stent was advanced, deployed and post-dilated at 16 atmospheres. After the last inflation, after appropriate wait, the balloon and the guidewire were withdrawn back in the guiding catheter. Images were obtained and repeated. Those images reveal stable successful stenting. At that point, the guiding catheter, the balloon and the guidewire were removed. The sheath was removed. Hemostasis was obtained with deployment of TR band. There was no immediate complication. Patient was returned to her room in stable condition. Of note, the patient received a total of 6000 units of intravenous heparin as well as oral loading dose of Brilinta. Her ACT was monitored throughout the procedure. RESULTS: 1. Successful stenting of the proximal RCA with reduction of stenosis from 80% to 0%. 2. Successful stenting of the OM1 with reduction of stenosis from 90% to 0%. RECOMMENDATION: Patient will be continued on aspirin, Brilinta, beta jey, PRIYA inhibitor, statin. The importance of dual antiplatelet treatment were discussed with the patient and her over the phone and they are in full understanding and agreement. Duration of the procedure is 53 minutes. MMABRAML / IJN: [id number] /
[2020-10-18 12:38] LABS: Glucose,Whole Blood 121 mg/dL (75-99)
[2020-10-18] MEDS: EZETIMIBE 10 MG TAB PO SCH (12:45)
--- NOTE | 2020-10-18 12:56 | P.PN ---
Subjective Progress Note Date: 10/18/20 This is an 85-year-old patient who underwent a right ankle ORIF. This is postop day 1. Patient states on Saturday she was walking down the stairs with her and her slipped on the last step pulling her down with him. Her landed on her right foot causing a fracture. Patient was seen in the ER where a OCL was placed and was instructed to follow up with orthopedics the next day. Patient was then seen on Saturday by Dr. Crump who instructed her to come to the hospital for a ORIF of the right ankle. She has been utilizing a cane due to weakness and ability to walk at home for the past few weeks. Patient also is complaining of neck shoulder and hip pain. As time patient is found resting in bed in no acute distress. Patient states that her pain is well managed. She is on postop day 1. As an afebrile, blood pressure 166/73, pulse rate of 94, pulse oxing 96% on room air. 10/17: Postop day #3. VQ scan is low probability for pulmonary embolism. Patient states that she had chest pain yesterday that was relieved with nitroglycerin. EKG was a left bundle branch block. No comparative EKGs available. Patient ordered for Lasix 20 mg IV 1 and then switch to oral. Patient states pain in her ankle comes and goes. She currently denies having any chest pain, shortness of breath. She is not on home oxygen. No cough or sputum production. Troponins were elevated at 0.062 and 0.063. Cardiology consult added. 10/18: Patient is seen today on the cardiac stepdown unit. She denies having any chest pain or shortness of breath. She is not requiring oxygen. She denies any ankle pain. She is a female catheter in place. Echocardiogram reveals EF of 50-55%, mild concentric left hypertrophy, mild aortic regurgitation, mild aortic stenosis, mild mitral regurgitation, mild to moderate tricuspid regurgitation, mild pulmonary hypertension. Patient is scheduled for heart catheterization today. She is off Lasix. Review Of Systems: Constitutional: No fever, no chills, no night sweats. No weight change. No weakness, fatigue or lethargy. No daytime sleepiness. EENT: No headache. No blurred vision or double vision, no loss of vision. No loss of Hearing, no ringing in the ears, no dizziness. No nasal drainage or congestion. No epistaxis. No sore throat. Lungs: No shortness of breath, cough, no sputum production. No wheezing. Cardiovascular: No chest pain, no lower extremity edema. No palpitations. No paroxysmal nocturnal dyspnea. No orthopnea. No lightheadedness or dizziness. No syncopal episodes. Abdominal: no abdominal discomfort. No nausea, vomiting. no diarrhea. No constipation. No bloody or tarry stools. no loss of appetite. Genitourinary: No dysuria, increased frequency, urgency. No urinary retention. Musculoskeletal: No myalgias. No muscle weakness, no gait dysfunction, no frequent falls. No back pain. No neck pain. Mild ankle discomfort. Integumentary: No wounds, no lesions. No rash or pruritus. No unusual bruising. No change in hair or nails. Neurologic: No aphasia. No facial droop. No change in mentation. No head injury. No headache. No paralysis. No paresthesia. Psychiatric: No depression. No anxiety. No mood swings. Endocrine: No abnormal blood sugars. No weight change. No excessive sweating or thirst. Physical Exam General Appearance: Alert, cooperative, no distress, appears stated age. Neck HEENT: Supple, no lymphadenopathy, no thyroid enlargement, no carotid bruits. Lungs: Clear to auscultation without crackles or wheezes no rhonchi, no defor mity. Chest Wall: Chest wall normal expansion with deep inspiration no tenderness and no deformity was found on exam, no costochondral pain or discomfort. Heart: Regular rate and rhythm, S1, S2 normal, no murmur, rub or gallop. Back: Symmetric, no curvature, ROM normal, no CVA tenderness. Abdomen: Soft, non-tender, no rebound or rigidity, no hepatosplenomegaly. Extremities: Right lower extremity cast/dressing in place clean and dry, positive sensation and circulatory status intact Extremities normal, atraumatic, no cyanosis or edema. Pulses: 2+ and symmetric. Skin: Skin color, texture, tugor normal, no rashes or lesions. Neurologic: Alert oriented x3 cranial nerves II through XII intact, no motor deficit, Assessment/plan: 1. Closed right ankle fracture status post ORIF postop day 2. Continue with pain management. Patient to start physical therapy and ambulation nonweightbearing status to the right lower extremity. 2. Non-ST elevated myocardial infarction. Cardiology consult appreciated. Heart catheterization today. Continue aspirin 81 mg daily, Lipitor 40 mg daily, Lopressor 25 mg twice daily. 3. Diabetes mellitus type II. Continue glucose monitoring before meals at bedtime Tradjenta 5 mg daily. 4. Hyperlipidemia. Continue simvastatin 80 mg by mouth at bedtime. 5. Hypertension. Continue amlodipine 5 mg by mouth at bedtime, enalapril 20 mg by mouth a.m. 6. Hyperthyroidism. Levothyroxine 75 g by mouth 7. GI prophylaxis. Pepcid 20 mg by mouth daily 8. DVT prophylaxis. pneumatic Compression garment CODE Status: No Code Discharge plan: subacute rehab at [facility]. Impression and plan of care have been directed as dictated by the signing physician. Fara Escalante nurse practitioner acting as scribe for signing physician. Objective - Vital Signs Vital signs: Vital Signs Temp 97.9 F 10/18/20 04:00 Pulse 57 L 10/18/20 04:00 Resp 16 10/18/20 04:00 BP 151/62 10/18/20 04:00 Pulse Ox 97 10/18/20 04:00 Intake & Output 10/17/20 10/18/20 10/18/20 18:59 06:59 18:59 Intake Total 200 Output Total 1000 900 Balance -800 -900 Weight 75 kg Intake: Oral 200 Output: Urine 1000 900 Other: Voiding Method External Catheter External Catheter - Labs CBC & Chem 7: 10/18/20 11:07 10/18/20 07:01 Labs: Abnormal Lab Results - Last 24 Hours (Table) 10/17/20 10/17/20 10/17/20 Range/Units 11:06 16:31 22:21 Carbon Dioxide (22-30) mmol/L BUN (7-17) mg/dL Creatinine (0.52-1.04) mg/dL Glucose (74-99) mg/dL POC Glucose (mg/dL) 131 H 138 H 132 H (75-99) mg/dL Calcium (8.4-10.2) mg/dL 10/18/20 10/18/20 Range/Units 06:22 07:01 Carbon Dioxide 31 H (22-30) mmol/L BUN 31 H (7-17) mg/dL Creatinine 1.65 H (0.52-1.04) mg/dL Glucose 120 H (74-99) mg/dL POC Glucose (mg/dL) 120 H (75-99) mg/dL Calcium 10.6 H (8.4-10.2) mg/dL
[2020-10-18 15:22] VITALS: BMI 28.3
[2020-10-18] MEDS: HYDROcodone/APAP 5-325MG 1 EACH TAB PO PRN (15:39)
[2020-10-18 16:59] LABS: Glucose,Whole Blood 132 mg/dL (75-99)
[2020-10-18 20:16] LABS: Glucose,Whole Blood 139 mg/dL (75-99)
[2020-10-18] MEDS ORDERED: FUROSEMIDE 10 MG/ML 4 ML VIAL IV STA (20:43)
[2020-10-18] MEDS: SENNOSIDES-DOCUSATE SODIUM 1 EACH TAB PO PRN (20:56)
[2020-10-18] MEDS: amLODIPine 5 MG TAB PO SCH (20:57)
[2020-10-18] MEDS: TICAGRELOR 90 MG TAB PO SCH (20:57)
[2020-10-18] MEDS: ASPIRIN 81 MG PO SCH (20:57)
[2020-10-19 04:32] VITALS: RESP 16
[2020-10-19 06:03] LABS: Glucose,Whole Blood 161 mg/dL (75-99)
[2020-10-19] MEDS: LEVOTHYROXINE 75 MCG TAB PO SCH (06:48)
[2020-10-19] MEDS: INSULIN ASPART (NovoLOG) 100 UNIT/ML VIAL SQ SCH (06:48)
[2020-10-19 08:35] LABS: Calcium 10.7 mg/dL (8.4-10.2); Potassium 3.9 mmol/L (3.5-5.1)
[2020-10-19] MEDS: TICAGRELOR 90 MG TAB PO SCH (09:20)
[2020-10-19] MEDS: CHOLECALCIFEROL 25 MCG (1000 IU) TABLET PO SCH (09:20)
[2020-10-19] MEDS: METOPROLOL TARTRATE 25 MG TAB PO SCH (09:20)
[2020-10-19] MEDS: lisinopriL 20 MG TAB PO SCH (09:20)
[2020-10-19] MEDS: CYANOCOBALAMIN 500 MCG TAB PO SCH (09:20)
[2020-10-19] MEDS: LINAGLIPTIN 5 MG TABLET PO SCH (09:20)
[2020-10-19] MEDS: EZETIMIBE 10 MG TAB PO SCH (09:20)
--- NOTE | 2020-10-19 10:06 | P.DS ---
Providers Date of admission: 10/17/20 14:07 Expected date of discharge: 10/19/20 Attending physician: Rajeev Rojas Consults: 10/14/20 16:32 Consult Physician Routine Consulting Provider: Tatum Kam Consult Reason/Comments: medical management Do you want consulting provider notified?: Yes 10/17/20 08:47 Consult Physician Routine Consulting Provider: Haider Dykes Consult Reason/Comments: CP relieved w NTG, elevated trops Do you want consulting provider notified?: Yes 10/18/20 12:09 Consult Physician Routine Consulting Provider: [facility] Consult Reason/Comments: Post Interventional patient Do you want consulting provider notified?: Already Contacted Primary care physician: [facility] Course: This is an 85-year-old patient who underwent a right ankle ORIF. This is postop day 1. Patient states on Saturday she was walking down the stairs with her and her slipped on the last step pulling her down with him. Her landed on her right foot causing a fracture. Patient was seen in the ER where a OCL was placed and was instructed to follow up with orthopedics the next day. Patient was then seen on Saturday by Dr. Crump who instructed her to come to the hospital for a ORIF of the right ankle. She has been utilizing a cane due to weakness and ability to walk at home for the past few weeks. Patient also is complaining of neck shoulder and hip pain. As time patient is found resting in bed in no acute distress. Patient states that her pain is well managed. She is on postop day 1. As an afebrile, blood pressure 166/73, pulse rate of 94, pulse oxing 96% on room air. 10/17: Postop day #3. VQ scan is low probability for pulmonary embolism. Patient states that she had chest pain yesterday that was relieved with nitroglycerin. EKG was a left bundle branch block. No comparative EKGs available. Patient ordered for Lasix 20 mg IV 1 and then switch to oral. Patient states pain in her ankle comes and goes. She currently denies having any chest pain, shortness of breath. She is not on home oxygen. No cough or sputum production. Troponins were elevated at 0.062 and 0.063. Cardiology consult added. 10/18: Patient is seen today on the cardiac stepdown unit. She denies having any chest pain or shortness of breath. She is not requiring oxygen. She denies any ankle pain. She is a female catheter in place. Echocardiogram reveals EF of 50-55%, mild concentric left hypertrophy, mild aortic regurgitation, mild aortic stenosis, mild mitral regurgitation, mild to moderate tricuspid regurgitation, mild pulmonary hypertension. Patient is scheduled for heart catheterization today. She is off Lasix. 10/19: As today, patient underwent heart catheterization that revealed critical stenosis in the obtuse marginal branch, critical stenosis in the proximal right coronary artery, patent stent in the LAD and mid right coronary artery. Patient subsequently underwent successful stenting of the proximal RCA and successful stenting of the OM 1. Patient denies any chest pain or shortness of breath. Right wrist does not show any sign of hematoma or bleeding. Ankle pain is currently controlled. Patient has been afebrile, heart rate 72, blood pressure 153/60, pulse ox 90% on room air. Blood sugars are running between 139-161. BUN 33 creatinine 1.75, electrolytes normal. Patient will be discharged to [facility] today in stable condition. Assessment/plan: 1. Closed right ankle fracture status post ORIF on 10/[address] Crump. 2. Non-ST elevated myocardial infarction. 3. Diabetes mellitus type II. 4. Hyperlipidemia. 5. Hypertension. 6. Hyperthyroidism. Discharge plan: subacute rehab at [facility]. Impression and plan of care have been directed as dictated by the signing physician. Fara Escalante nurse practitioner acting as scribe for signing physician. Patient Condition at Discharge: Good Plan - Discharge Summary Discharge Rx Participant: No New Discharge Prescriptions: New Zolpidem [Ambien] 5 mg PO HS PRN #3 tab PRN Reason: Insomnia Aspirin 81 mg PO HS chew Ticagrelor [Brilinta] 90 mg PO BID tab Atorvastatin [Lipitor] 40 mg PO HS tab Metoprolol Tartrate [Lopressor] 25 mg PO BID tab Nitroglycerin Sl Tabs [Nitrostat] 0.4 mg SUBLINGUAL Q5M PRN tab PRN Reason: Chest Pain HYDROcodone/APAP 5-325MG [[place] 5-325] 1 each PO Q6HR PRN #12 tab PRN Reason: Pain Scale 1 To 5 Sennosides-Docusate Sodium [Senokot-S] 2 each PO HS PRN tab PRN Reason: Constipation lisinopriL [Zestril] 40 mg PO QAM tab Continue Janumet 50 mg PO BID Cholecalciferol [Vitamin D3 (25 Mcg = 1000 Iu)] 50 mcg PO DAILY Levothyroxine Sodium [Synthroid] 75 mcg PO QAM Ezetimibe [Zetia] 10 mg PO DAILY amLODIPine BESYLATE 5 mg PO HS Vit C/E/Zn/Coppr/Lutein/Zeaxan [Preservision Areds 2 Softgel] 1 each PO BID Potassium Gluconate 99 mg PO DAILY Cyanocobalamin (Vitamin B-12) [Vitamin B-12] 3,000 mcg PO DAILY Discontinued Simvastatin 80 mg PO HS Enalapril [Vasotec] 20 mg PO QAM Aspirin 325 mg PO HS Discharge Medication List Cholecalciferol [Vitamin D3 (25 Mcg = 1000 Iu)] 50 mcg PO DAILY 10/11/20 [History] Cyanocobalamin (Vitamin B-12) [Vitamin B-12] 3,000 mcg PO DAILY 10/11/20 [History] Ezetimibe [Zetia] 10 mg PO DAILY 10/11/20 [History] Janumet 50 mg PO BID 10/11/20 [History] Levothyroxine Sodium [Synthroid] 75 mcg PO QAM 10/11/20 [History] Potassium Gluconate 99 mg PO DAILY 10/11/20 [History] Vit C/E/Zn/Coppr/Lutein/Zeaxan [Preservision Areds 2 Softgel] 1 each PO BID 10/11/20 [History] amLODIPine BESYLATE 5 mg PO HS 10/11/20 [History] Aspirin 81 mg PO HS chew 10/19/20 [Rx] Atorvastatin [Lipitor] 40 mg PO HS tab 10/19/20 [Rx] HYDROcodone/APAP 5-325MG [[place] 5-325] 1 each PO Q6HR PRN #12 tab 10/19/20 [Rx] Metoprolol Tartrate [Lopressor] 25 mg PO BID tab 10/19/20 [Rx] Nitroglycerin Sl Tabs [Nitrostat] 0.4 mg SUBLINGUAL Q5M PRN tab 10/19/20 [Rx] Sennosides-Docusate Sodium [Senokot-S] 2 each PO HS PRN tab 03/10/21 [Rx] Ticagrelor [Brilinta] 90 mg PO BID tab 10/19/20 [Rx] Zolpidem [Ambien] 5 mg PO HS PRN #3 tab 10/19/20 [Rx] lisinopriL [Zestril] 40 mg PO QAM tab 10/19/20 [Rx] Follow up Appointment(s)/Referral(s): Cleopatra Bach PAC [PHYSICIAN FURNITURE REPAIRER] - 10/28/20 10:30 am (Saturday) Percy Oliver MD [STAFF PHYSICIAN] - 10/26/20 3:15 pm (Saturday ) Patient Instructions/Handouts: Non Weight Bearing Activity (DC), After Radial Heart Catheterization (GEN), ORIF of an Ankle Fracture (DC) Discharge Disposition: TRANSFER TO SNF/ECF
--- NOTE | 2020-10-19 10:25 | XR ---
EXAMINATION TYPE: XR chest 2V DATE OF EXAM: 10/19/2020 COMPARISON: Chest x-ray 10/26/2020 HISTORY: Shortness of breath TECHNIQUE: Frontal and lateral views of the chest are obtained. FINDINGS: There are prominent lung volumes with flattening the hemidiaphragms. No evident pneumothor ax or pleural effusion. There is some improvement in the interstitium as compared to prior exam. Card iac mediastinal silhouette shows an enlarged heart. Aorta is dense. IMPRESSION: Suspect some improvement in patient's volume status, aeration within the lungs.
[2020-10-19 10:37] VITALS: BP 153/68; PULSE 72; TEMP 97.4
[2020-10-19 11:43] LABS: Glucose,Whole Blood 143 mg/dL (75-99)
--- NOTE | 2020-10-19 12:34 | P.PN ---
Subjective Progress Note Date: 10/19/20 Principal diagnosis: Right ankle fracture. Post op ORIF right ankle. NH. This is a 85 year-old female post right ankle ORIF. This is post-op day 3. The patient was evaluated at the bedside today. She did have a confirmed NH. She had a cardiac cath yesterday with stent placement.The patient denies nausea, vomiting, or abdominal pain this morning. She states her ankle pain is controlled at this time. She is being closely followed by Dr. Rojas. We are awaiting clearance for discharge to rehab. Objective - Vital Signs Vital signs: Vital Signs Temp 97.4 F L 10/19/20 08:00 Pulse 72 10/19/20 08:00 Resp 16 10/19/20 08:00 BP 153/68 10/19/20 08:00 Pulse Ox 98 10/19/20 08:00 Intake & Output 10/18/20 10/19/20 10/19/20 18:59 06:59 18:59 Intake Total 580 240 Output Total 450 300 Balance 130 -60 Weight 75 kg 72 kg Intake: IV 100 Oral 480 240 Output: Urine 450 300 Other: Voiding Method External Catheter External Catheter External Catheter # Voids 1 1 - Exam This is a pleasant 85-year-old female in no acute distress. She is alert and oriented 3. Exam of the right lower extremity reveals that her splint is intact. She has normal toe motion without difficulty or pain. She has normal sensation to the toes. Capillary refill is less than 3 seconds. - Labs CBC & Chem 7: 10/18/20 11:07 10/19/20 07:43 Labs: Abnormal Lab Results - Last 24 Hours (Table) 10/18/20 10/18/20 10/18/20 Range/Units 12:32 16:43 20:15 BUN (7-17) mg/dL Creatinine (0.52-1.04) mg/dL Glucose (74-99) mg/dL POC Glucose (mg/dL) 121 H 132 H 139 H (75-99) mg/dL Calcium (8.4-10.2) mg/dL 10/19/20 10/19/20 10/19/20 Range/Units 06:02 07:43 11:42 BUN 33 H (7-17) mg/dL Creatinine 1.75 H (0.52-1.04) mg/dL Glucose 138 H (74-99) mg/dL POC Glucose (mg/dL) 161 H 143 H (75-99) mg/dL Calcium 10.7 H (8.4-10.2) mg/dL Assessment and Plan (1) Closed right ankle fracture Current Visit: Yes Status: Acute Code(s): S82.891A - OTH FRACTURE OF RIGHT LOWER LEG, INIT FOR CLOS FX SNOMED Code(s): 86143813 (2) Status post ORIF of fracture of ankle Current Visit: Yes Status: Acute Code(s): Z98.890 - OTHER SPECIFIED POSTPROCEDURAL STATES; Z87.81 - PERSONAL HISTORY OF (HEALED) TRAUMATIC FRACTURE SNOMED Code(s): 759119800 Plan: The clinical findings are discussed with the patient. She may be discharged to inpatient rehab from an orthopedic standpoint.
--- NOTE | 2020-10-19 13:30 | P.PN ---
Subjective Progress Note Date: 10/19/20 HISTORY OF PRESENT ILLNESS: Patient underwent cardiac catheterization yesterday with Dr. Dykes. Patient underwent successful stenting of the proximal RCA and OM 1. Patient developed some respiratory distress yesterday and required a dose of IV Lasix. She denies shortness of breath this morning. Denies chest pain or pressure. Chest x-ray this morning reveals improvement in patient's volume status and aeration within the lungs. PHYSICAL EXAM: VITAL SIGNS: Reviewed. GENERAL: Well-developed in no acute distress. NECK: Supple. No JVD or thyromegaly LUNGS: Respirations even and unlabored. Lungs essentially clear to auscultation bilaterally. HEART: Regular rate and rhythm. S1 and S2 heard. EXTREMITIES: Normal range of motion. No clubbing or cyanosis. Peripheral pulses intact. No lower extremity edema. Right radial Site with pulses present. ASSESSMENT: Non-STEMI, status post cardiac catheterization with PCI to proximal RCA and OM 1 Right ankle fracture, status post right ankle ORIF History of coronary artery disease with previous PCI in 2009 Hypertension Hyperlipidemia Diabetes mellitus PLAN: Continue current cardiac medications Patient is stable for discharge today from a cardiac perspective She is to follow up outpatient with Dr. Oliver Nurse practitioner note has been reviewed by physician. Signing provider agrees with the documented findings, assessment, and plan of care. Objective - Vital Signs Vital signs: Vital Signs Temp 97.4 F L 10/19/20 08:00 Pulse 72 10/19/20 08:00 Resp 16 10/19/20 08:00 BP 153/68 10/19/20 08:00 Pulse Ox 98 10/19/20 08:00 Intake & Output 10/18/20 10/19/20 10/19/20 18:59 06:59 18:59 Intake Total 580 240 Output Total 450 300 Balance 130 -60 Weight 75 kg 72 kg Intake: IV 100 Oral 480 240 Output: Urine 450 300 Other: Voiding Method External Catheter External Catheter External Catheter # Voids 1 1 - Labs CBC & Chem 7: 10/18/20 11:07 10/19/20 07:43 Labs: Abnormal Lab Results - Last 24 Hours (Table) 10/18/20 10/18/20 10/19/20 Range/Units 16:43 20:15 06:02 BUN (7-17) mg/dL Creatinine (0.52-1.04) mg/dL Glucose (74-99) mg/dL POC Glucose (mg/dL) 132 H 139 H 161 H (75-99) mg/dL Calcium (8.4-10.2) mg/dL 10/19/20 10/19/20 Range/Units 07:43 11:42 BUN 33 H (7-17) mg/dL Creatinine 1.75 H (0.52-1.04) mg/dL Glucose 138 H (74-99) mg/dL POC Glucose (mg/dL) 143 H (75-99) mg/dL Calcium 10.7 H (8.4-10.2) mg/dL
== END 2020-10-19 12:35 | DRG 247 ==
LOC: OR 10:29 → 4SSUR 14:57 → OR 10-15 12:20 → 4SSUR 10-15 12:20 → OBSVTOIN 10-17 14:07 → 3SCARD 10-17 19:50
PROVIDERS: ADMIT Internal Medicine Geriatric Medicine; ATTEND Internal Medicine Geriatric Medicine
PROC: 0QSG04Z Reposition Right Tibia with Internal Fixation Device, Open Approach (ICD-10-PCS; 2020-10-14)
PROC: 0QSJ04Z Reposition Right Fibula with Internal Fixation Device, Open Approach (ICD-10-PCS; 2020-10-14)
PROC: 4A023N7 Measurement of Cardiac Sampling and Pressure, Left Heart, Percutaneous Approach (ICD-10-PCS; 2020-10-18)
PROC: B2111ZZ Fluoroscopy of Multiple Coronary Arteries using Low Osmolar Contrast (ICD-10-PCS; 2020-10-18)
PROC: 027135Z Dilation of Coronary Artery, Two Arteries with Two Drug-eluting Intraluminal Devices, Percutaneous Approach (ICD-10-PCS; principal; 2020-10-18 10:30)
DX: I21.4 Non-ST elevation (NSTEMI) myocardial infarction (principal); S82.841A Displaced bimalleolar fracture of right lower leg, initial encounter for closed fracture; I10 Essential (primary) hypertension; I25.10 Atherosclerotic heart disease of native coronary artery without angina pectoris; E11.9 Type 2 diabetes mellitus without complications; E78.5 Hyperlipidemia, unspecified; E05.90 Thyrotoxicosis, unspecified without thyrotoxic crisis or storm; W19.XXXA Unspecified fall, initial encounter; Z95.5 Presence of coronary angioplasty implant and graft; Z79.890 Hormone replacement therapy; Z79.84 Long term (current) use of oral hypoglycemic drugs; Z79.82 Long term (current) use of aspirin; Z79.899 Other long term (current) drug therapy; Z88.8 Allergy status to other drugs, medicaments and biological substances
CPT/HCPCS: 64447; 71045; 71046; 76942; 78582; 80048; 83880; 84484; 85025; 85347; 85379; 93005; 93306; 93454; 94760

== ENCOUNTER 2020-11-01 06:37 | Inpatient (IN) | payer MEDICARE ==
--- NOTE | 2020-11-01 06:54 | ED ---
General Adult HPI - General Chief complaint: Shortness of Breath Stated complaint: NATHALY Time Seen by Provider: 11/01/20 06:45 Source: EMS Mode of arrival: EMS - History of Present Illness Initial comments: 85-year-old female with a past medical history of diabetes melitis, hyperli pidemia, hypertension, ORIF of the right ankle 3 weeks ago, heart cath with stents 3 weeks ago presents to the emergency room for a chief complaint of shortness of breath. Patient started to develop shortness of breath today. She was apparently at 86% on room air at [facility], usually does not require any oxygen. Patient also also been nauseous and vomiting. She has been weaker than normal. EMS states patient was wheezing and they started a DuoNeb. Patient has no other complaints at this time including chest pain, abdominal pain, - Related Data Home Medications Medication Instructions Recorded Confirmed Cyanocobalamin (Vitamin B-12) 3,000 mcg PO DAILY@0900 10/11/20 11/01/20 [Vitamin B-12] Ezetimibe [Zetia] 10 mg PO HS@209910/11/20 11/01/20 Levothyroxine Sodium [Synthroid] 75 mcg PO HS@209910/11/20 11/01/20 Potassium Gluconate 99 mg PO HS@209910/11/20 11/01/20 Vit C/E/Zn/Coppr/Lutein/Zeaxan 1 cap PO DAILY@0900 10/11/20 11/01/20 [Preservision Areds 2 Softgel] amLODIPine BESYLATE 5 mg PO HS@209910/11/20 11/01/20 Aspirin 81 mg PO HS@209911/01/20 11/01/20 Atorvastatin [Lipitor] 40 mg PO HS@209911/01/20 11/01/20 Dorzolamide 2% [Trusopt 2%] 1 drops BOTH EYES BID@0900,209911/01/20 11/01/20 Ergocalciferol (Vitamin D2) 50 mcg PO DAILY@0900 11/01/20 11/01/20 [Vitamin D2 (2000 Iu)] HYDROcodone/APAP 5-325MG [Marquand 1 tab PO Q4H PRN 11/01/20 11/01/20 5-325] Latanoprost [Xalatan 0.005%] 1 drop BOTH EYES HS@209911/01/20 11/01/20 Metoprolol Tartrate [Lopressor] 25 mg PO BID@0900,209911/01/20 11/01/20 Polyethylene Glycol 3350 [Miralax] 17 gm PO DAILY PRN 11/01/20 11/01/20 Sennosides-Docusate Sodium 2 tab PO HS PRN 11/01/20 11/01/20 [Senokot-S] Ticagrelor [Brilinta] 90 mg PO BID@0900,209911/01/20 11/01/20 lisinopriL 40 mg PO DAILY@0900 11/01/20 11/01/20 sitaGLIPtin PHOS/metFORMIN HCL 1 tab PO DAILY@0900 11/01/20 11/01/20 [Janumet 50-500 mg Tablet] Previous Rx's Medication Instructions Recorded Nitroglycerin Sl Tabs [Nitrostat] 0.4 mg SUBLINGUAL Q5M PRN tab 10/19/20 Zolpidem [Ambien] 5 mg PO HS PRN #3 tab 10/19/20 Allergies Allergy/AdvReac Type Severity Reaction Status Date / Time clopidogrel [From Plavix] Allergy Rash/Hives Verified 11/01/20 07:18 Review of Systems ROS Statement: Those systems with pertinent positive or pertinent negative responses have been documented in the HPI. ROS Other: All systems not noted in ROS Statement are negative. Past Medical History Past Medical History: Diabetes Mellitus, Hyperlipidemia, Hypertension History of Any Multi-Drug Resistant Organisms: None Reported Past Surgical History: Back Surgery, Heart Catheterization With Stent, Hysterectomy Additional Past Surgical History / Comment(s): 3 cardiac stents. Cystocele repair, right ankle ORIF (10/14/20) Past Anesthesia/Blood Transfusion Reactions: No Reported Reaction Date of Last Stent Placement:: 2014 Past Psychological History: No Psychological Hx Reported Smoking Status: Never smoker Past Alcohol Use History: None Reported Past Drug Use History: None Reported - Past Family History Daughter(s) Family Medical History: Cancer Additional Family Medical History / Comment(s): Cervical and kidney cancer. General Exam General appearance: alert, in no apparent distress Head exam: Present: atraumatic, normocephalic, normal inspection Eye exam: Present: normal appearance, PERRL, EOMI. Absent: scleral icterus, conjunctival injection, periorbital swelling ENT exam: Present: normal exam, mucous membranes moist Neck exam: Present: normal inspection, full ROM. Absent: tenderness, meningismus, lymphadenopathy Respiratory exam: Absent: respiratory distress, wheezes, rales, rhonchi, stridor Cardiovascular Exam: Present: regular rate, normal rhythm, normal heart sounds. Absent: systolic murmur, diastolic murmur, rubs, gallop, clicks GI/Abdominal exam: Present: soft, normal bowel sounds. Absent: distended, tenderness, guarding, rebound, rigid Neurological exam: Present: alert (``) Course Vital Signs 11/01/20 11/01/20 11/01/20 06:44 07:08 07:30 Temperature 97 F L Pulse Rate 57 L 30 L 31 L Respiratory 18 14 14 Rate Blood Pressure 192/72 149/72 169/64 O2 Sat by Pulse 98 97 100 Oximetry 11/01/20 11/01/20 08:00 08:24 Temperature Pulse Rate 29 L 45 L Respiratory 15 18 Rate Blood Pressure 139/49 168/67 O2 Sat by Pulse 96 95 Oximetry EKG Findings - EKG Comments: EKG Findings:: EKG 0643: sinus alba, 1st degree AV block, vent rate 53, [place] int 210, Qtc 495. EKG 0701: marked sinus bradycardia, vent rate 34, [place] int 182, QTc 443 Medical Decision Making - Medical Decision Making Patient presents with stable vitals however requiring 4 L of oxygen. However shortly after her arrival she did start to become bradycardic in the low 30s. Patient was hooked to crash cart and monitored. Blood pressure remained stable. CBC does show a hemoglobin of 9.2 which appears chronic. CMP reveals severe hyponatremia of 118. Patient given small fluid bolus of 500 ml, started on maintenance. Potassium hemolyzed, 6.0. Patient is covid positive. No pneumonia changes on x-ray. Heart rate stayed around 30. I did discuss CODE STATUS with the patient, she does want to be a full code at this time. She wants CPR and intubation if nec essary. Patient was given 0.5 mg of atropine. This did improve her heart rate to the 50s. Dr. Kraus did speak with Andreina from cardiology, is a made aware of patient's condition as well as Covid positive status. Dr. Kraus spoke with Dr. Virgen who does accept patient and requests nephrology consultation as well. I did order this. - Lab Data Result diagrams: 11/01/20 07:03 11/01/20 07:03 Lab Results 11/01/20 11/01/20 11/01/20 Range/Units 07:03 07:03 07:03 WBC 5.8 (3.8-10.6) k/uL RBC 2.83 L (3.80-5.40) m/uL Hgb 9.2 L (11.4-16.0) gm/dL Hct 26.2 L (34.0-46.0) % MCV 92.6 (80.0-100.0) fL MCH 32.4 (25.0-35.0) pg MCHC 34.9 (31.0-37.0) g/dL RDW 13.7 (11.5-15.5) % Plt Count 261 (150-450) k/uL MPV 7.4 Neutrophils % 70 % Lymphocytes % 21 % Monocytes % 7 % Eosinophils % 1 % Basophils % 0 % Neutrophils # 4.0 (1.3-7.7) k/uL Lymphocytes # 1.2 (1.0-4.8) k/uL Monocytes # 0.4 (0-1.0) k/uL Eosinophils # 0.1 (0-0.7) k/uL Basophils # 0.0 (0-0.2) k/uL PT 10.1 (9.0-12.0) sec INR 0.9 (<1.2) APTT 27.1 (22.0-30.0) sec Sodium 118 L* (137-145) mmol/L Potassium 6.0 H (3.5-5.1) mmol/L Chloride 92 L (98-107) mmol/L Carbon Dioxide 16 L (22-30) mmol/L Anion Gap 10 mmol/L BUN 36 H (7-17) mg/dL Creatinine 1.93 H (0.52-1.04) mg/dL Est GFR (CKD-EPI)AfAm 27 (>60 ml/min/1.73 sqM) Est GFR (CKD-EPI)NonAf 24 (>60 ml/min/1.73 sqM) Glucose 116 H (74-99) mg/dL Plasma Lactic Acid Keon (0.7-2.0) mmol/L Calcium 9.2 (8.4-10.2) mg/dL Magnesium 1.8 (1.6-2.3) mg/dL Total Bilirubin 1.0 (0.2-1.3) mg/dL AST 43 H (14-36) U/L ALT 20 (4-34) U/L Alkaline Phosphatase 140 H (38-126) U/L Troponin I (0.000-0.034) ng/mL NT-Pro-B Natriuret Pep pg/mL Total Protein 6.6 (6.3-8.2) g/dL Albumin 3.5 (3.5-5.0) g/dL Coronavirus (PCR) (Not Detectd) 11/01/20 11/01/20 11/01/20 Range/Units 07:03 07:03 07:03 WBC (3.8-10.6) k/uL RBC (3.80-5.40) m/uL Hgb (11.4-16.0) gm/dL Hct (34.0-46.0) % MCV (80.0-100.0) fL MCH (25.0-35.0) pg MCHC (31.0-37.0) g/dL RDW (11.5-15.5) % Plt Count (150-450) k/uL MPV Neutrophils % % Lymphocytes % % Monocytes % % Eosinophils % % Basophils % % Neutrophils # (1.3-7.7) k/uL Lymphocytes # (1.0-4.8) k/uL Monocytes # (0-1.0) k/uL Eosinophils # (0-0.7) k/uL Basophils # (0-0.2) k/uL PT (9.0-12.0) sec INR (<1.2) APTT (22.0-30.0) sec Sodium (137-145) mmol/L Potassium (3.5-5.1) mmol/L Chloride (98-107) mmol/L Carbon Dioxide (22-30) mmol/L Anion Gap mmol/L BUN (7-17) mg/dL Creatinine (0.52-1.04) mg/dL Est GFR (CKD-EPI)AfAm (>60 ml/min/1.73 sqM) Est GFR (CKD-EPI)NonAf (>60 ml/min/1.73 sqM) Glucose (74-99) mg/dL Plasma Lactic Acid Keon 1.1 (0.7-2.0) mmol/L Calcium (8.4-10.2) mg/dL Magnesium (1.6-2.3) mg/dL Total Bilirubin (0.2-1.3) mg/dL AST (14-36) U/L ALT (4-34) U/L Alkaline Phosphatase (38-126) U/L Troponin I 0.018 (0.000-0.034) ng/mL NT-Pro-B Natriuret Pep 3700 pg/mL Total Protein (6.3-8.2) g/dL Albumin (3.5-5.0) g/dL Coronavirus (PCR) (Not Detectd) 11/01/20 Range/Units 07:10 WBC (3.8-10.6) k/uL RBC (3.80-5.40) m/uL Hgb (11.4-16.0) gm/dL Hct (34.0-46.0) % MCV (80.0-100.0) fL MCH (25.0-35.0) pg MCHC (31.0-37.0) g/dL RDW (11.5-15.5) % Plt Count (150-450) k/uL MPV Neutrophils % % Lymphocytes % % Monocytes % % Eosinophils % % Basophils % % Neutrophils # (1.3-7.7) k/uL Lymphocytes # (1.0-4.8) k/uL Monocytes # (0-1.0) k/uL Eosinophils # (0-0.7) k/uL Basophils # (0-0.2) k/uL PT (9.0-12.0) sec INR (<1.2) APTT (22.0-30.0) sec Sodium (137-145) mmol/L Potassium (3.5-5.1) mmol/L Chloride (98-107) mmol/L Carbon Dioxide (22-30) mmol/L Anion Gap mmol/L BUN (7-17) mg/dL Creatinine (0.52-1.04) mg/dL Est GFR (CKD-EPI)AfAm (>60 ml/min/1.73 sqM) Est GFR (CKD-EPI)NonAf (>60 ml/min/1.73 sqM) Glucose (74-99) mg/dL Plasma Lactic Acid Keon (0.7-2.0) mmol/L Calcium (8.4-10.2) mg/dL Magnesium (1.6-2.3) mg/dL Total Bilirubin (0.2-1.3) mg/dL AST (14-36) U/L ALT (4-34) U/L Alkaline Phosphatase (38-126) U/L Troponin I (0.000-0.034) ng/mL NT-Pro-B Natriuret Pep pg/mL Total Protein (6.3-8.2) g/dL Albumin (3.5-5.0) g/dL Coronavirus (PCR) Detected A (Not Detectd) Critical Care Time Critical Care Time: Yes (33) Critical Care Time: 33 minutes of critical care time spent on multiple bedside evaluations, giving atropine, monitoring heart rate, multiple consultations with internal medicine and cardiology. Disposition Clinical Impression: Hyponatremia, Bradycardia, COVID-19, Hypoxia Disposition: ADMITTED IP TO THIS HOSP Is patient prescribed a controlled substance at d/c from ED?: No Referrals: Wicho Corona MD [Primary Care Provider] - 1-2 days Time of Disposition: 08:14
[2020-11-01 07:10] LABS: Basophils % (A) 0 %; Eosinophils # (A) 0.1 k/uL (0-0.7); Eosinophils % (A) 1 %; HCT 26.2 % (34.0-46.0); HGB 9.2 gm/dL (11.4-16.0); Lymphocytes # (A) 1.2 k/uL (1.0-4.8); Lymphocytes % (A) 21 %; MCH 32.4 pg (25.0-35.0); MCHC 34.9 g/dL (31.0-37.0); MCV 92.6 fL (80.0-100.0); Mean Platelet Volume 7.4; Monocytes # (A) 0.4 k/uL (0-1.0); Monocytes % (A) 7 %; Neutrophils % (A) 70 %; Platelet Count 261 k/uL (150-450); RBC 2.83 m/uL (3.80-5.40); RDW 13.7 % (11.5-15.5); WBC 5.8 k/uL (3.8-10.6)
[2020-11-01 07:19] LABS: Albumin 3.5 g/dL (3.5-5.0); Calcium 9.2 mg/dL (8.4-10.2); Total Protein 6.6 g/dL (6.3-8.2)
[2020-11-01 07:22] LABS: INR 0.9 (<1.2); Partial Thromboplastin Time 27.1 sec (22.0-30.0); Prothrombin Time 10.1 sec (9.0-12.0)
[2020-11-01 07:38] LABS: Magnesium 1.8 mg/dL (1.6-2.3)
--- NOTE | 2020-11-01 07:51 | XR ---
EXAMINATION TYPE: XR chest 1V DATE OF EXAM: 11/01/2020 COMPARISON: Chest x-ray 13 days ago HISTORY: Difficulty in breathing. TECHNIQUE: Single portable frontal view of the chest is obtained. FINDINGS: There is cardiomegaly with atherosclerotic aorta. There is background chronic parenchymal change without suspicious focal airspace opacity, pleural effusion, or pneumothorax seen bilaterally. The osseous structures are demineralized. IMPRESSION: Chronic parenchymal changes and cardiomegaly without acute pulmonary process. No signifi cant change from prior.
[2020-11-01] MEDS ORDERED: ATROPINE SULFATE 0.1 MG/ML 10ML SYRINGE IV STA (08:08)
[2020-11-01] MEDS ORDERED: SODIUM CHLORIDE 0.9% 500 ML 500 ML IV STA (08:08)
[2020-11-01] MEDS ORDERED: NALOXONE 0.4 MG/ML 1 ML VIAL IV PRN (08:14)
[2020-11-01] MEDS: SODIUM CHLORIDE 0.9% 1,000 ML IV SCH (08:23)
[2020-11-01] MEDS ORDERED: metFORMIN 500 MG TAB PO SCH (09:00)
[2020-11-01] MEDS: DEXTROSE/WATER 1 250ML.BAG with DOPamine DRIP 800 MG IV SCH (09:30)
[2020-11-01] MEDS ORDERED: SODIUM BICARB 8.4% 50 ML SYR (1 MEQ/ML) IV STA (09:33)
[2020-11-01] MEDS ORDERED: INSULIN REGULAR 100 UNIT/ML VIAL IV STA (09:33)
[2020-11-01] MEDS ORDERED: DEXTROSE 50% SYRINGE 50 ML IVP STA (09:33)
[2020-11-01] MEDS ORDERED: SENNOSIDES-DOCUSATE SODIUM 1 EACH TAB PO PRN (10:21)
[2020-11-01] MEDS ORDERED: HYDROcodone/APAP 5-325MG 1 EACH TAB PO PRN (10:21)
[2020-11-01] MEDS ORDERED: polyethylene glycoL 3350 17 GM POWD.PACK PO PRN (10:21)
[2020-11-01] MEDS ORDERED: ZOLPIDEM 5 MG TAB PO PRN (10:21)
[2020-11-01] MEDS ORDERED: METOPROLOL TARTRATE 25 MG TAB PO SCH (10:21)
[2020-11-01] MEDS ORDERED: NITROGLYCERIN SL TABS 0.4 MG TAB SUBLINGUAL PRN (10:21)
[2020-11-01] MEDS: DORZOLAMIDE HCL 2% DROPS 10 ML BTL BOTH EYES SCH ×2 (11:13→21:37)
[2020-11-01] MEDS ORDERED: ALBUTEROL NEBULIZED 2.5 MG/3 ML INHALATION STA (11:18)
[2020-11-01] MEDS: ALBUTEROL NEB (CONC) 2.5 MG/0.5 ML INHALATION ONE ×2 (11:19→11:28)
--- NOTE | 2020-11-01 12:29 | CONS ---
CONSULTATION REASON FOR CONSULT: Renal failure. HISTORY OF PRESENT ILLNESS: The patient is an 85-year-old female with a history of chronic kidney disease previous creatinine about 1.4-1.6 mg/dL, NKF stage 3 secondary to nephrosclerosis. The patient was admitted to the hospital with increased weakness. She was found to have the heart rate in the 30s and 29 on admission. Potassium was 6.0 and sodium was 118. She also tested positive for coronavirus PCR. Patient was maintained on PRIYA inhibitors prior to admission. She denied being in contact with someone sick recently. The patient does have history of diabetes, hypertension, and hyperlipidemia. She has been voiding. The blood pressure has not been low and patient did receive a 500 mL normal saline bolus on initial admission. PAST MEDICAL HISTORY: Hypertension, hypothyroidism, type 2 diabetes. PAST SURGICAL HISTORY: Cardiac catheterization, hysterectomy, coronary stent placement, back surgery, cystocele repair. SOCIAL HISTORY: Negative for smoking, drug abuse or alcohol abuse. MEDICATIONS: Medications prior to admission included Zetia, Synthroid, potassium, Glucophage, amlodipine, Lipitor, vitamin D2, Lopressor, Senokot, metformin, lisinopril, Brilinta. ALLERGIES: Allergies include PLAVIX, causes rash and hives, AMBIEN, NITROSTAT. REVIEW OF SYSTEMS: As per HPI. Other systems negative. PHYSICAL EXAMINATION: Patient is comfortable, awake, not in any acute distress. Blood pressure 137/59, heart rate 52 per minute. She is afebrile. Examination shows no evidence of edema of lower extremities. Abdomen is soft, nontender. [employer] exam grossly intact. The heart and lungs are not examined. LABS: Labs show sodium 118, potassium 6.0 down to 5.6, CO2 is 16, BUN 36, serum creatinine 1.9. ASSESSMENT: 1. Acute kidney injury most likely prerenal associated with hypoperfusion and bradycardia, status post 500 mL normal saline bolus. We will check repeat labs later on today. 2. Hyperkalemia associated with acute kidney injury, use of PRIYA inhibitors, potassium supplementation prior to admission. 3. Type 2 diabetes. 4. Bradycardia associated with hyperkalemia. 5. Hypothyroidism. 6. Coronary artery disease with history of coronary stents. 7. Hyponatremia most likely hypovolemic, repeat sodium now. The patient has had 500 mL bolus on initial admission. PLAN: Discontinue potassium. Hold Glucophage. Repeat sodium now. Hold off on IV fluids for now until the sodium comes back. Check urine osmolality. Check UA. Thank you for this consultation. Will continue to follow the patient with you during her hospitalization. HESHAM / ALLENN: [id number] /
--- NOTE | 2020-11-01 13:23 | US ---
EXAMINATION TYPE: US kidneys/renal and bladder DATE OF EXAM: 11/01/2020 COMPARISON: US CLINICAL HISTORY: RF. Renal failure EXAM MEASUREMENTS: Right Kidney: 8.7 x 4.1 x 3.5 cm, similar to prior Left Kidney: 6.1 x 3.8 x 3.5 cm Right Kidney: Small in size, mildly dilated renal pelvis= 1.3 cm Left Kidney: Small in size, difficult to visualize due to pt position and immobility Bladder: wnl Bilateral Jets seen: No There is no evidence for hydronephrosis at this point in time. No nephrolithiasis is seen. No ihsan s are identified. The urinary bladder is anechoic. Cortical medullary differentiation is maintained within the kidneys. IMPRESSION: Kidneys are atrophic.
--- NOTE | 2020-11-01 14:10 | P.CRDCN ---
History of Present Illness History of present illness: HISTORY OF PRESENTING ILLNESS This is a pleasant 85-year-old female past medical history significant for coronary artery disease s/p recent PCI in the setting of NSTEMI 10/18/20, hyp ertension, dyslipidemia, diabetes mellitus and recent ankle ORIF surgery. She follows in the office with Dr. Oliver. We have been asked to see in consultation for bradycardia. She was recently admitted here 10/17/2020 for ORIF ankle surgery s/p fall and fracture. Post-operatively she suffered a NSTEMI and underwent PCI of proximal RCA and OM1. She was discharged to [facility] for rehabilitation. She presented to ER yesterday with symptoms of shortness of breath and cough. She has been diagnosed with COVID 19. Initially on evaluation her heart rates were in the mid50's however she then went down to the 30's. We evaluated her from the door and spoke to Dr. Kraus along with the nurse. Chest x-ray shows chronic parenchymal changes and cardiomegaly with no acute cardiopulmonary process. EKG reveals sinus bradycardia. Laboratory data reviewed, WBC 5.8, hemoglobin 9.2, platelets 261, d-dimer 2.7, sodium 118, potassium 6, creatinine 1.93, magnesium 1.8, troponin negative 1, and T proBNP 3700. Crit daily cardiac medications include aspirin 81 mg daily, brilinta 90 mg twice a day, atorvastatin 40 mg daily, Zetia 10 mg daily, amlodipine 5 mg daily and lisinopril 40 mg daily. Most recent echocardiogram obtained 10/17/2020 revealed preserved LV systolic function with ejection fraction 50-55% with mid anterior and mid anteroseptal LV wall motion hypokinesia, mild aortic stenosis with mean gradient of 10 mmHg, mild to moderate tricuspid regurgitation and mild pulmonary hypertension with an RVSP of 41 mmHg. REVIEW OF SYSTEMS At the time of my exam: CONSTITUTIONAL: Denies fever or chills. CARDIOVASCULAR: Complains of shortness of breath. Denies chest pain, orthopnea, PND or palpitations. RESPIRATORY: Complains of cough. GASTROINTESTINAL: Denies abdominal pain, diarrhea, constipation, nausea or vomiting. MUSCULOSKELETAL: Denies myalgias. NEUROLOGIC: Denies numbness, tingling, headacbe or weakness. ENDOCRINE: Denies fatigue, weight change, polydipsia or polyurina. GENITOURINARY: Denies burning, hematuria or urgency with micturation. HEMATOLOGIC: Denies history of anemia or bleeding. PHYSICAL EXAMINATION Blood pressure 129/54 heart rate 47 afebrile and maintaining oxygen saturation on nasal cannula. CONSTITUTIONAL: No apparent distress. Detailed physical exam was not performed due to acute COVID 19. ASSESSMENT Covid 19 Sinus bradycardia, asymptomatic Hyperkalemia Hyponatremia Coronary artery disease status post recent PCI Hypertension Dyslipidemia Diabetes mellitus PLAN Hold lisinopril and daily potassium supplementation. Initiate dopamine at renal perfusion dosing for increased chronotropic response. Continue dual-antiplatlet therapy for recent PCI. Hold lopressor. Check TSH. Further recommendations to follow based on clinical course. Thank you kindly for this consultation. Nurse Practitioner note has been reviewed, I agree with a documented findings and plan of care. Patient was seen and examined. Past Medical History Past Medical History: Diabetes Mellitus, Hyperlipidemia, Hypertension History of Any Multi-Drug Resistant Organisms: None Reported Past Surgical History: Back Surgery, Heart Catheterization With Stent, Hysterectomy Additional Past Surgical History / Comment(s): 3 cardiac stents. Cystocele repair, right ankle ORIF (10/14/20) Past Anesthesia/Blood Transfusion Reactions: No Reported Reaction Date of Last Stent Placement:: 2014 Past Psychological History: No Psychological Hx Reported Smoking Status: Never smoker Past Alcohol Use History: None Reported Past Drug Use History: None Reported - Past Family History Daughter(s) Family Medical History: Cancer Additional Family Medical History / Comment(s): Cervical and kidney cancer. Medications and Allergies Home Medications Medication Instructions Recorded Confirmed Type Cyanocobalamin (Vitamin B-12) 3,000 mcg PO DAILY@0900 10/11/20 11/01/20 History [Vitamin B-12] Ezetimibe [Zetia] 10 mg PO HS@209910/11/20 11/01/20 History Levothyroxine Sodium [Synthroid] 75 mcg PO HS@209910/11/20 11/01/20 History Potassium Gluconate 99 mg PO HS@209910/11/20 11/01/20 History Vit C/E/Zn/Coppr/Lutein/Zeaxan 1 cap PO DAILY@0900 10/11/20 11/01/20 History [Preservision Areds 2 Softgel] amLODIPine BESYLATE 5 mg PO HS@209910/11/20 11/01/20 History Nitroglycerin Sl Tabs [Nitrostat] 0.4 mg SUBLINGUAL Q5M PRN tab 10/19/20 11/01/20 Rx Zolpidem [Ambien] 5 mg PO HS PRN #3 tab 10/19/20 11/01/20 Rx Aspirin 81 mg PO HS@209911/01/20 11/01/20 History Atorvastatin [Lipitor] 40 mg PO HS@209911/01/20 11/01/20 History Dorzolamide 2% [Trusopt 2%] 1 drops BOTH EYES BID@0900,209911/01/20 11/01/20 History Ergocalciferol (Vitamin D2) 50 mcg PO DAILY@0900 11/01/20 11/01/20 History [Vitamin D2 (2000 Iu)] HYDROcodone/APAP 5-325MG [Gibbs 1 tab PO Q4H PRN 11/01/20 11/01/20 History 5-325] Latanoprost [Xalatan 0.005%] 1 drop BOTH EYES HS@209911/01/20 11/01/20 History Metoprolol Tartrate [Lopressor] 25 mg PO BID@0900,209911/01/20 11/01/20 History Polyethylene Glycol 3350 [Miralax] 17 gm PO DAILY PRN 11/01/20 11/01/20 History Sennosides-Docusate Sodium 2 tab PO HS PRN 11/01/20 11/01/20 History [Senokot-S] Ticagrelor [Brilinta] 90 mg PO BID@0900,209911/01/20 11/01/20 History lisinopriL 40 mg PO DAILY@0911/01/20 11/01/20 History sitaGLIPtin PHOS/metFORMIN HCL 1 tab PO DAILY@0900 11/01/20 11/01/20 History [Janumet 50-500 mg Tablet] Allergies Allergy/AdvReac Type Severity Reaction Status Date / Time clopidogrel [From Plavix] Allergy Rash/Hives Verified 11/01/20 07:18 Physical Exam Vitals: Vital Signs Temp Pulse Pulse Resp BP BP Pulse Ox 11/01/20 12:08 47 L 16 129/54 100 11/01/20 12:00 98 F 49 L 16 131/57 99 11/01/20 11:55 54 L 11/01/20 11:35 51 L 16 135/58 100 11/01/20 11:30 53 L 11/01/20 11:13 50 L 14 141/68 99 11/01/20 11:02 57 L 18 159/69 97 11/01/20 10:33 52 L 16 137/59 99 11/01/20 10:16 62 16 148/64 98 11/01/20 10:13 51 L 18 148/64 100 11/01/20 09:49 97.6 F 11/01/20 09:45 39 L 16 117/50 99 11/01/20 09:20 32 L 16 136/47 96 11/01/20 08:58 38 L 14 152/53 95 11/01/20 08:42 39 L 14 152/53 96 11/01/20 08:36 47 L 16 97 11/01/20 08:24 45 L 18 168/67 95 11/01/20 08:00 29 L 15 139/49 96 11/01/20 07:30 31 L 14 169/64 100 11/01/20 07:08 30 L 14 149/72 97 11/01/20 06:44 97 F L 57 L 18 192/72 98 Intake and Output 10/31/20 11/01/20 11/01/20 22:59 06:59 14:59 Other: Weight 69.4 kg Results 11/01/20 07:03 11/01/20 09:41 Cardiac Enzymes 11/01/20 11/01/20 Range/Units 07:03 07:03 AST 43 H (14-36) U/L Troponin I 0.018 (0.000-0.034) ng/mL Coagulation 11/01/20 Range/Units 07:03 PT 10.1 (9.0-12.0) sec APTT 27.1 (22.0-30.0) sec CBC 11/01/20 Range/Units 07:03 WBC 5.8 (3.8-10.6) k/uL RBC 2.83 L (3.80-5.40) m/uL Hgb 9.2 L (11.4-16.0) gm/dL Hct 26.2 L (34.0-46.0) % Plt Count 261 (150-450) k/uL Comprehensive Metabolic Panel 11/01/20 11/01/20 11/01/20 Range/Units 07:03 09:41 09:41 Sodium 118 L* 120 L (137-145) mmol/L Potassium 6.0 H 5.6 H (3.5-5.1) mmol/L Chloride 92 L (98-107) mmol/L Carbon Dioxide 16 L (22-30) mmol/L BUN 36 H (7-17) mg/dL Creatinine 1.93 H (0.52-1.04) mg/dL Glucose 116 H (74-99) mg/dL Calcium 9.2 (8.4-10.2) mg/dL AST 43 H (14-36) U/L ALT 20 (4-34) U/L Alkaline Phosphatase 140 H (38-126) U/L Total Protein 6.6 (6.3-8.2) g/dL Albumin 3.5 (3.5-5.0) g/dL Current Medications Generic Name Dose Route Start Last Admin Trade Name Freq PRN Reason Stop Dose Admin Hydrocodone Bitart/Acetaminophen 1 each 11/01/20 10:21 Hydrocodone/Apap 5-325mg 1 Each Tab PO Q4H PRN Pain Amlodipine Besylate 5 mg 11/01/20 21:00 Amlodipine 5 Mg Tab PO HS@2100 [facility] Aspirin 81 mg 11/01/20 21:00 Aspirin 81 Mg PO HS@2100 [facility] Atorvastatin Calcium 40 mg 11/01/20 21:00 Atorvastatin 40 Mg Tab PO HS@2100 [facility] Cholecalciferol 50 mcg 11/02/20 09:00 Cholecalciferol 10 Mcg (400 Iu) Tablet PO DAILY@0900 [facility] Cyanocobalamin 3,000 mcg 11/02/20 09:00 Cyanocobalamin 500 Mcg Tab PO DAILY@0900 [facility] Dorzolamide HCl 1 drops 11/01/20 10:21 11/01/20 11:13 Dorzolamide Hcl 2% Drops 10 Ml Btl BOTH EYES 1 drops BID@0900,2100 [facility] Administration Ezetimibe 10 mg 11/01/20 21:00 Ezetimibe 10 Mg Tab PO HS@2100 [facility] Sodium Chloride 1,000 mls @ 50 mls/hr 11/01/20 08:15 11/01/20 08:23 Saline 0.9% IV 50 mls/hr .Q20H [facility] Administration Dopamine HCl/Dextrose 800 mg/ 250 mls @ 3.253 mls/hr 11/01/20 09:15 11/01/20 09:30 IV Solution IV 3.253 mls/hr .Q24H [facility] Administration 2.5 MCG/KG/MIN Latanoprost 1 drops 11/01/20 21:00 Latanoprost 0.005% Ophth Drops 2.5 Ml Btl BOTH EYES HS@2100 [facility] Levothyroxine Sodium 75 mcg 11/01/20 21:00 Levothyroxine 75 Mcg Tab PO HS@2100 [facility] Multivitamins/Minerals 1 each 11/02/20 09:00 Vit A,C & O-Skbanh-Yuauwchb 1 Each Tab PO DAILY@0900 [facility] Naloxone HCl 0.2 mg 11/01/20 08:14 Naloxone 0.4 Mg/Ml 1 Ml Vial IV Q2M PRN Opioid Reversal Nitroglycerin 0.4 mg 11/01/20 10:21 Nitroglycerin Sl Tabs 0.4 Mg Tab SUBLINGUAL Q5M PRN Chest Pain Polyethylene Glycol 17 gm 11/01/20 10:21 Polyethylene Glycol 3350 17 Gm Powd.Pack PO DAILY PRN Constipation Senna/Docusate Sodium 2 each 11/01/20 10:21 Sennosides-Docusate Sodium 1 Each Tab PO HS PRN Constipation Ticagrelor 90 mg 11/01/20 21:00 Ticagrelor 90 Mg Tab PO BID@0900,2100 [facility] Zolpidem Tartrate 5 mg 11/01/20 10:21 Zolpidem 5 Mg Tab PO HS PRN Insomnia Intake and Output 10/31/20 11/01/20 11/01/20 22:59 06:59 14:59 Other: Weight 69.4 kg 11/01/20 07:03 11/01/20 09:41
[2020-11-01] MEDS ORDERED: SODIUM POLYSTYRENE SULFONATE 15 GM/60 ML BOTTLE PO STA (15:40)
[2020-11-01] MEDS ORDERED: LACTULOSE 20 GM/30 ML CUP PO ONE (15:48)
[2020-11-01 17:12] LABS: Glucose,Whole Blood 85 mg/dL (75-99)
[2020-11-01] MEDS: DEXAMETHASONE SOD PHOSPHATE 10 MG/ML 1 ML VIAL IV SCH (17:43)
[2020-11-01] MEDS: ZINC SULFATE 220 MG CAP PO SCH (17:44)
[2020-11-01] MEDS: polyethylene glycoL 3350 17 GM POWD.PACK PO SCH (17:44)
[2020-11-01] MEDS: INSULIN ASPART (NovoLOG) 100 UNIT/ML VIAL SQ SCH ×2 (17:44→21:36)
--- NOTE | 2020-11-01 19:25 | P.HPIM ---
History of Present Illness H&P Date: 11/01/20 Chief Complaint: Shortness of breath History of presenting complaint: This is a pleasant 85-year-old patient who is currently at [facility] for rehab being followed by Dr. Corona. She has currently not established a family doctor. Patient's chronic stable medical conditions include diabetes, hypertension, hyperlipidemia, coronary artery disease with stent. On October 16 patient underwent right ankle ORIF for a fracture. By Dr. Crump. Following that patient had an acute NH. Patient on October 18 underwent successful stenting to the proximal RCA and OM [address] Dykes. Patient was then sent to inpatient rehab. Patient [id number] on the right foot. Patient yesterday developed shortness of breath. No cough. Has had significantly decreased appetite. Has some pain in the right site. Denies any fever or chills or body aches. Does have a congested cough. Sent into the ER. Patient is found to have a sodium 118. And a creatinine of 1.93. Patient also tested positive for coronavirus. Patient's appetite has not been good and she has been drinking quite a bit of water. Review of systems: GEN.: Tired EYES: None HEENT: None NECK: None RESPIRATORY: Congested cough CARDIOVASCULAR: None GASTROINTESTINAL: Last bowel movement 4 days ago GENITOURINARY: None MUSCULOSKELETAL: Joint pains especially right ankle LYMPHATICS: None HEMATOLOGICAL: None PSYCHIATRY: None NEUROLOGICAL: None Past medical history to include: Diabetes mellitus type 2, hypertension, hyperlipidemia, coronary artery disease with stents with last stent being on October 18 following acute NH postprocedure Social history: No history of smoking or alcohol. . Currently at getting rehab at [facility]. Physical examination: VITAL SIGNS: 97, 57, 18, 149/72, 97% on 3 L GENERAL: BMI 26.3, reclining in bed, tired. EYES: [Pupils equal. Conjunctiva pale. HEENT: External appearance of nose and ears normal, oral cavity grossly normal. NECK: JVD not raised; masses not palpable. HEART: First and second heart sounds are normal; no edema. LUNGS:[ Respiratory rate increased, slightly decreased breath sounds. ABDOMEN: Soft, nontender, liver spleen not palpable, no masses palpable. PSYCH: Alert and oriented x3; mood and affect tiredl. NEUROLOGICAL: Cranial nerves grossly intact; no facial asymmetry, power and sensation grossly intact. EXTREMITIES: Right foot has a brace LYMPHATICS: No lymph nodes palpable in the axilla and neck INVESTIGATIONS, reviewed in the clinical context: WBC 5.8 hemoglobin 9.2 platelets 261 d-dimer 2.7 sodium 118 potassium 6 repeat 5.6 bun 36 creatinine 1.93 [BUN 33 creatinine 1.75 on October 19 was bracketed TSH 2.1 Coronavirus [PCR]-detected EKG tracing personally reviewed by me-normal sinus rhythm with a rate of 34 Chest x-ray film personally reviewed by me-cardiomegaly, some basal changes/infiltrate Assessment and plan: -Symptomatic bradycardia, she is on beta jey. Hold the same. Put on IV dopamine by cardiology. -COVID 19 pneumonitis. Causing hypoxia. Patient's pulse ox was found to be 86% at the [facility]CF as documented by the staff and EMS report. Patient started on dexamethasone. Subcu Lovenox -Acute hypoxic respiratory failure secondary to COVID 19. Supplement oxygen -Recent acute non-Q wave NH on October 18, postprocedure ankle ORIF followed by stenting to proximal RCA and OM 1, continue with aspirin and Brillinta -Coronary artery disease with prior history of stents, continue aspirin and Lipitor amlodipine -Essential hypertension. Continue with l amlodipine -Chronic kidney disease likely from diabetic nephropathy and atherosclerosis. Patient has a documented creatinine of 1.4 in January 2018. -Normocytic anemia likely from underlying chronic kidney disease. Follow H&H -Severe hyponatremia likely with hypo-osmolarity from excessive water intake and poor solute intake -Hyperkalemia secondary to kidney disease. Give Kayexalate -[facility] -Left bundle-branch block Consultation was made to cardiology, ID, nephrology. Care was discussed with the patient. Questions answered. Given the complexity and severity of patient's condition expect the patient to be in the hospital at least for 2 overnights Past Medical History Past Medical History: Diabetes Mellitus, Hyperlipidemia, Hypertension History of Any Multi-Drug Resistant Organisms: None Reported Past Surgical History: Back Surgery, Heart Catheterization With Stent, Hysterectomy Additional Past Surgical History / Comment(s): 3 cardiac stents. Cystocele repair, right ankle ORIF (10/14/20) Past Anesthesia/Blood Transfusion Reactions: No Reported Reaction Date of Last Stent Placement:: 2014 Past Psychological History: No Psychological Hx Reported Smoking Status: Never smoker Past Alcohol Use History: None Reported Past Drug Use History: None Reported - Past Family History Daughter(s) Family Medical History: Cancer Additional Family Medical History / Comment(s): Cervical and kidney cancer. Medications and Allergies Home Medications Medication Instructions Recorded Confirmed Type Cyanocobalamin (Vitamin B-12) 3,000 mcg PO DAILY@0900 10/11/20 11/01/20 History [Vitamin B-12] Ezetimibe [Zetia] 10 mg PO HS@209910/11/20 11/01/20 History Levothyroxine Sodium [Synthroid] 75 mcg PO HS@209910/11/20 11/01/20 History Potassium Gluconate 99 mg PO HS@209910/11/20 11/01/20 History Vit C/E/Zn/Coppr/Lutein/Zeaxan 1 cap PO DAILY@89910/11/20 11/01/20 History [Preservision Areds 2 Softgel] amLODIPine BESYLATE 5 mg PO HS@209910/11/20 11/01/20 History Nitroglycerin Sl Tabs [Nitrostat] 0.4 mg SUBLINGUAL Q5M PRN tab 10/19/20 11/01/20 Rx Zolpidem [Ambien] 5 mg PO HS PRN #3 tab 10/19/20 11/01/20 Rx Aspirin 81 mg PO HS@209911/01/20 11/01/20 History Atorvastatin [Lipitor] 40 mg PO HS@209911/01/20 11/01/20 History Dorzolamide 2% [Trusopt 2%] 1 drops BOTH EYES BID@0900,209911/01/20 11/01/20 History Ergocalciferol (Vitamin D2) 50 mcg PO DAILY@89911/01/20 11/01/20 History [Vitamin D2 (2000 Iu)] HYDROcodone/APAP 5-325MG [[place] 1 tab PO Q4H PRN 11/01/20 11/01/20 History 5-325] Latanoprost [Xalatan 0.005%] 1 drop BOTH EYES HS@209911/01/20 11/01/20 History Metoprolol Tartrate [Lopressor] 25 mg PO BID@0900,209911/01/20 11/01/20 History Polyethylene Glycol 3350 [Miralax] 17 gm PO DAILY PRN 11/01/20 11/01/20 History Sennosides-Docusate Sodium 2 tab PO HS PRN 11/01/20 11/01/20 History [Senokot-S] Ticagrelor [Brilinta] 90 mg PO BID@0900,2100 11/01/20 11/01/20 History lisinopriL 40 mg PO DAILY@0900 11/01/20 11/01/20 History sitaGLIPtin PHOS/metFORMIN HCL 1 tab PO DAILY@0900 11/01/20 11/01/20 History [Janumet 50-500 mg Tablet] Allergies Allergy/AdvReac Type Severity Reaction Status Date / Time clopidogrel [From Plavix] Allergy Rash/Hives Verified 11/01/20 07:18 Physical Exam Vitals: Vital Signs Temp Pulse Resp BP Pulse Ox 11/01/20 10:16 62 16 148/64 98 11/01/20 10:13 51 L 18 148/64 100 11/01/20 09:49 97.6 F 11/01/20 09:45 39 L 16 117/50 99 11/01/20 09:20 32 L 16 136/47 96 11/01/20 08:58 38 L 14 152/53 95 11/01/20 08:42 39 L 14 152/53 96 11/01/20 08:36 47 L 16 97 11/01/20 08:24 45 L 18 168/67 95 11/01/20 08:00 29 L 15 139/49 96 11/01/20 07:30 31 L 14 169/64 100 11/01/20 07:08 30 L 14 149/72 97 11/01/20 06:44 97 F L 57 L 18 192/72 98 Intake and Output 10/31/20 11/01/20 11/01/20 22:59 06:59 14:59 Other: Weight 69.4 kg Results CBC & Chem 7: 11/01/20 07:03 11/01/20 09:41 Labs: Abnormal Lab Results - Last 24 Hours (Table) 11/01/20 11/01/20 11/01/20 Range/Units 07:03 07:03 07:03 RBC 2.83 L (3.80-5.40) m/uL Hgb 9.2 L (11.4-16.0) gm/dL Hct 26.2 L (34.0-46.0) % D-Dimer 2.70 H (<0.60) mg/L FEU Sodium 118 L* (137-145) mmol/L Potassium 6.0 H (3.5-5.1) mmol/L Chloride 92 L (98-107) mmol/L Carbon Dioxide 16 L (22-30) mmol/L BUN 36 H (7-17) mg/dL Creatinine 1.93 H (0.52-1.04) mg/dL Glucose 116 H (74-99) mg/dL AST 43 H (14-36) U/L Alkaline Phosphatase 140 H (38-126) U/L Coronavirus (PCR) (Not Detectd) 11/01/20 11/01/20 Range/Units 07:10 09:41 RBC (3.80-5.40) m/uL Hgb (11.4-16.0) gm/dL Hct (34.0-46.0) % D-Dimer (<0.60) mg/L FEU Sodium (137-145) mmol/L Potassium 5.6 H (3.5-5.1) mmol/L Chloride (98-107) mmol/L Carbon Dioxide (22-30) mmol/L BUN (7-17) mg/dL Creatinine (0.52-1.04) mg/dL Glucose (74-99) mg/dL AST (14-36) U/L Alkaline Phosphatase (38-126) U/L Coronavirus (PCR) Detected A (Not Detectd)
[2020-11-01 20:14] LABS: Glucose,Whole Blood 159 mg/dL (75-99)
[2020-11-01] MEDS ORDERED: ATORVASTATIN 40 MG TAB PO SCH (21:00)
[2020-11-01] MEDS ORDERED: EZETIMIBE 10 MG TAB PO SCH (21:00)
[2020-11-01] MEDS ORDERED: amLODIPine 5 MG TAB PO SCH (21:00)
[2020-11-01] MEDS ORDERED: LATANOPROST 0.005% OPHTH DROPS 2.5 ML BTL BOTH EYES SCH (21:00)
[2020-11-01] MEDS ORDERED: POTASSIUM CHLORIDE ER 10 MEQ TAB.ER.PRT PO SCH (21:00)
[2020-11-01] MEDS ORDERED: LEVOTHYROXINE 75 MCG TAB PO SCH (21:00)
[2020-11-01] MEDS ORDERED: ASPIRIN 81 MG PO SCH (21:00)
[2020-11-01] MEDS: ASCORBIC ACID 500 MG TAB PO SCH (21:34)
[2020-11-01] MEDS: SODIUM BICARBONATE TAB 650 MG TAB PO SCH ×2 (21:34→21:39)
[2020-11-01] MEDS: FAMOTIDINE 20 MG TAB PO SCH (21:36)
[2020-11-01] MEDS: TICAGRELOR 90 MG TAB PO SCH (21:36)
[2020-11-01] MEDS: ENOXAPARIN 60 MG/0.6 ML SYRINGE SQ SCH (21:37)
[2020-11-02 04:02] VITALS: RESP 18
--- NOTE | 2020-11-02 06:30 | CONS ---
CONSULTATION DATE OF SERVICE: 11/01/2020 REASON FOR CONSULTATION: COVID-19 infection. HISTORY OF PRESENT ILLNESS: The patient is an 85-year-old female who recently did have an ORIF of the right ankle and foot fracture on October 16. Subsequently the patient did have an acute IA and is status post stenting of the proximal RCA by Dr. Dykes. Afterward, the patient was sent to inpatient rehab at the [facility] on the [place] where the patient has been residing. The patient has been sent to the ER early this morning for evaluation of increasing shortness of breath which apparently started the day of presentation to the hospital. The patient denies having any chest pain. The patient did have minimal cough but no sputum production. Denies having nausea, no vomiting. No abdominal pain or any diarrhea. On presentation to the hospital the patient was afebrile. She was initially noticed to be saturating 98% 93%. The patient did have a normal white count with no lymphopenia. D-dimer was elevated at 2.70. Also have elevated creatinine 1.93, potassium was 6.0, AST mildly elevated. Black PCR came back positive. The patient did have a chest x-ray that did not show any acute infiltrate. The patient has been admitted to the hospital for management of underlying condition. Infectious Disease was consulted for further management of antibiotic therapy. REVIEW OF SYSTEMS: Positive points have been mentioned in HPI. Rest of systems are negative. PAST MEDICAL HISTORY: Diabetes mellitus, hyperlipidemia, hypertension, IA. PAST SURGICAL HISTORY: Back surgery, PTCA with stent, hysterectomy, adenoidectomy, fracture repair. SOCIAL HISTORY: No history of smoking, drinking or drug use. FAMILY HISTORY: Daughter with history of cervical and kidney cancer. ALLERGIES: CLOPIDOGREL. MEDICATIONS: The patient is on [place], Norvasc, vitamin C, aspirin, Lipitor, vitamin D3, Decadron, Lovenox, Senokot, and zinc. PHYSICAL EXAMINATION: VITAL SIGNS: Blood pressure 128/74 with a pulse of 52, temperature 97.7, she is 98% on 2 L nasal cannula. GENERAL DESCRIPTION: Patient is an elderly female lying in bed in no distress. No tachypnea or accessory muscles of respiration use. HEENT: Examination shows slight pallor no scleral icterus. Oral mucous membrane is dry. No pharyngeal erythema or thrush. NECK: Trachea central, no thyromegaly. LUNGS: Unlabored breathing, decreased intensity of breath sounds. No wheeze. HEART: S1-S2, regular rate and rhythm. ABDOMEN: Soft, no tenderness. No guarding or rigidity. EXTREMITIES: No edema of the feet. SKIN: No rash or mass palpable. NEUROLOGICAL: Patient is awake, alert, oriented times three. Mood and affect normal. LABS: Hemoglobin 9.2, white count 5.8. D-dimer is 2.70. Creatinine is 1.93. DIAGNOSTIC IMPRESSION: Patient admitted to hospital with increasing shortness of breath which is multifactorial in this patient who did have a positive COVID test, however, the patient did not have any fever, no hypoxemia, and there was no evidence of any acute infiltrate on the chest x-ray. Possible mild COVID infection. PLAN: 1. Treatment will be mostly support in the form of Lovenox, zinc and ascorbic acid. 2. No need for steroids or remdesivir therapy. 3. Droplet isolation and respiratory support. 4. We will follow on clinical condition and further adjust medication if needed. Thank you for this consultation. Will follow this patient along with you. MMODL / IJN: [id number] /
[2020-11-02 06:39] LABS: Glucose,Whole Blood 147 mg/dL (75-99)
[2020-11-02] MEDS: INSULIN ASPART (NovoLOG) 100 UNIT/ML VIAL SQ SCH ×2 (06:45→12:08)
[2020-11-02] MEDS: SODIUM CHLORIDE 0.9% 1,000 ML IV SCH (06:45)
[2020-11-02] MEDS: ZINC SULFATE 220 MG CAP PO SCH (08:59)
[2020-11-02] MEDS: DEXAMETHASONE SOD PHOSPHATE 10 MG/ML 1 ML VIAL IV SCH (09:00)
[2020-11-02] MEDS: TICAGRELOR 90 MG TAB PO SCH (09:00)
[2020-11-02] MEDS: SODIUM BICARBONATE TAB 650 MG TAB PO SCH (09:00)
[2020-11-02] MEDS: ASCORBIC ACID 500 MG TAB PO SCH (09:00)
[2020-11-02] MEDS ORDERED: CYANOCOBALAMIN 500 MCG TAB PO SCH (09:00)
[2020-11-02] MEDS ORDERED: lisinopriL 20 MG TAB PO SCH (09:00)
[2020-11-02] MEDS ORDERED: VIT A,C & E-LUTEIN-MINERALS 1 EACH TAB PO SCH (09:00)
[2020-11-02] MEDS ORDERED: CHOLECALCIFEROL 10 MCG (400 IU) TABLET PO SCH (09:00)
[2020-11-02] MEDS: DORZOLAMIDE HCL 2% DROPS 10 ML BTL BOTH EYES SCH (09:01)
[2020-11-02] MEDS: FAMOTIDINE 20 MG TAB PO SCH (09:01)
[2020-11-02] MEDS: ENOXAPARIN 60 MG/0.6 ML SYRINGE SQ SCH (09:01)
[2020-11-02] MEDS: polyethylene glycoL 3350 17 GM POWD.PACK PO SCH (09:20)
[2020-11-02 10:17] LABS: Calcium 9.2 mg/dL (8.4-10.2); Potassium 4.1 mmol/L (3.5-5.1)
[2020-11-02] MEDS: DEXTROSE/WATER 1 250ML.BAG with DOPamine DRIP 800 MG IV SCH (10:57)
--- NOTE | 2020-11-02 11:37 | PN ---
PROGRESS NOTE The patient is seen for followup for hyponatremia, hyperkalemia. She is currently comfortable awake. Patient denies any significant complaints. She did receive a fluid bolus yesterday. Her blood pressure is now improved and her blood pressure is currently at 129 to 146 mmHg systolic. Heart rate is improved about 62-65 per minute. The patient has had good urine output. She did test positive for COVID-19 PHYSICAL EXAMINATION: On examination today, blood pressure 146/65, heart rate 65 per minute. She is afebrile. Examination of lower extremities shows no evidence of edema. Abdomen is soft. SOLUTION CONSULTANT exam grossly intact. LABS: Labs show sodium 138, potassium 4.1, chloride 108, CO2 is 20, BUN 23, creatinine 1.74. ASSESSMENT: 1. Acute kidney injury, prerenal, currently improving. Patient is status post IV fluids in the ER. Currently maintained on saline at 50 mL an hour. 2. Hyperkalemia associated with acute kidney injury and use of PRIYA inhibitors prior to admission, currently improved. 3. Bradycardia, status post dopamine. Heart rate now improved. 4. Hypertension, maintained on Norvasc. 5. COVID-19 infection with chest x-ray showing no acute pulmonary process, maintained on Decadron. 6. Hyponatremia, which appeared to be hypovolemic, improved with normal saline administration. PLAN: Continue with normal saline. Continue to avoid nephrotoxic agents. Repeat labs in a.m. I will decrease the oral sodium bicarb as blood pressure is on the higher side. MMODL / IJN: [id number] /
[2020-11-02 11:56] LABS: Glucose,Whole Blood 187 mg/dL (75-99)
--- NOTE | 2020-11-02 14:18 | P.PN ---
Subjective HISTORY OF PRESENTING ILLNESS This is a pleasant 85-year-old female past medical history significant for coronary artery disease s/p recent PCI in the setting of NSTEMI 10/18/20, hypertension, dyslipidemia, diabetes mellitus and recent ankle ORIF surgery. She follows in the office with Dr. Oliver. We have been asked to see in consultation for bradycardia. She was recently admitted here 10/17/2020 for ORIF ankle surgery s/p fall and fracture. Post-operatively she suffered a NSTEMI and underwent PCI of proximal RCA and OM1. [facility]. She presented to ER yesterday with symptoms of shortness of breath and cough. She has been diagnosed with COVID 19. Initially on evaluation her heart rates were in the mid50's however she then went down to the 30's. We evaluated her from the door and spoke to Dr. Kraus along with the nurse. Chest x-ray shows chronic parenchymal changes and cardiomegaly with no acute cardiopulmonary process. EKG reveals sinus bradycardia. Laboratory data reviewed, WBC 5.8, hemoglobin 9.2, platelets 261, d-dimer 2.7, sodium 118, potassium 6, creatinine 1.93, magnesium 1.8, troponin negative 1, and T proBNP 3700. Crit daily cardiac medications include aspirin 81 mg daily, brilinta 90 mg twice a day, atorvastatin 40 mg daily, Zetia 10 mg daily, amlodipine 5 mg daily and lisinopril 40 mg daily. Most recent echocardiogram obtained 10/17/2020 revealed preserved LV systolic fu nction with ejection fraction 50-55% with mid anterior and mid anteroseptal LV wall motion hypokinesia, mild aortic stenosis with mean gradient of 10 mmHg, mild to moderate tricuspid regurgitation and mild pulmonary hypertension with an RVSP of 41 mmHg. 11/02/2020 Pt seen sitting up in the recliner. Dopamine was weaned off this morning and her heart rates are maintaining in the 70's. Potassium level has normalized. Blood pressure 164/65. Laboratory data reviewed, sodium 138, potassium 4.1, creatinine 1.74. PHYSICAL EXAMINATION Blood pressure 129/54 heart rate 47 afebrile and maintaining oxygen saturation on nasal cannula. CONSTITUTIONAL: No apparent distress. Detailed physical exam was not performed due to acute COVID 19. ASSESSMENT Covid 19 Sinus bradycardia, asymptomatic Hyperkalemia Hyponatremia Coronary artery disease status post recent PCI Hypertension Dyslipidemia Diabetes mellitus PLAN Dopamine discontinued this morning. She is maintaining sinus rhythm with heart rates in the 50-70 range. Daily potassium supplementation to be discontinued indefinitely. Hold lopressor. Continue telemetry monitoring. Nurse Practitioner note has been reviewed, I agree with a documented findings and plan of care. Patient was seen and examined. Objective - Vital Signs Vital signs: Vital Signs Temp 98.2 F 11/02/20 11:43 Pulse 59 L 11/02/20 13:13 Resp 18 11/02/20 13:13 BP 164/65 11/02/20 11:43 Pulse Ox 100 11/02/20 11:43 Intake & Output 11/01/20 11/02/20 11/02/20 18:59 06:59 18:59 Intake Total 240 Output Total 300 Balance -300 240 Weight 69.4 kg 73 kg Intake: Oral 240 Output: Urine 300 Other: Voiding Method Incontinent Incontinent Incontinent # Voids 1 4 # Bowel Movements 1 1 - Labs CBC & Chem 7: 11/01/20 07:03 11/02/20 09:04 Labs: Abnormal Lab Results - Last 24 Hours (Table) 11/01/20 11/02/20 11/02/20 Range/Units 20:13 06:38 09:04 Chloride 108 H (98-107) mmol/L Carbon Dioxide 20 L (22-30) mmol/L BUN 23 H (7-17) mg/dL Creatinine 1.74 H (0.52-1.04) mg/dL Glucose 104 H (74-99) mg/dL POC Glucose (mg/dL) 159 H 147 H (75-99) mg/dL 11/02/20 Range/Units 11:55 Chloride (98-107) mmol/L Carbon Dioxide (22-30) mmol/L BUN (7-17) mg/dL Creatinine (0.52-1.04) mg/dL Glucose (74-99) mg/dL POC Glucose (mg/dL) 187 H (75-99) mg/dL
[2020-11-02 16:05] VITALS: BP 156/89; PULSE 62; TEMP 98
[2020-11-03] MEDS ORDERED: FAMOTIDINE 20 MG TAB PO SCH (09:00)
[2020-11-03] MEDS ORDERED: SODIUM BICARBONATE TAB 650 MG TAB PO SCH (09:00)
--- NOTE | 2020-11-03 12:57 | P.DS ---
Providers Date of admission: 11/01/20 08:20 Expected date of discharge: 11/02/20 Attending physician: Xavi Virgen Consults: 11/01/20 08:14 Consult Physician Routine Consulting Provider: [facility] Consult Reason/Comments: bradycardia, Do you want consulting provider notified?: Already Contacted 11/01/20 08:19 Consult Physician Routine Consulting Provider: Gabriela Person Consult Reason/Comments: elevated creatinine, hyponatremia Do you want consulting provider notified?: Yes 11/01/20 15:43 Consult Physician Routine Consulting Provider: Bull Knox Consult Reason/Comments: covid-19 Do you want consulting provider notified?: Yes Primary care physician: [facility] Course: Chief Complaint: Shortness of breath History of presenting complaint: This is a pleasant 85-year-old patient who is currently at [facility] for rehab being followed by Dr. Corona. She has currently not established a family doctor. Patient's chronic stable medical conditions include diabetes, hypertension, hyperlipidemia, coronary artery disease with stent. On October 16 patient underwent right ankle ORIF for a fracture. By Dr. Crump. Following that patient had an acute RI. Patient on October 18 underwent successful stenting to the proximal RCA and OM [address] Dykes. Patient was then sent to inpatient rehab. Patient [id number] on the right foot. Patient yesterday developed shortness of breath. No cough. Has had significantly decreased appetite. Has some pain in the right foot. Denies any fever or chills or body aches. Does have a congested cough. Sent into the ER. Patient is found to have a sodium 118. And a creatinine of 1.93. Patient also tested positive for coronavirus. Patient's appetite has not been good and she has been drinking quite a bit of water. Admitted with a diagnosis of symptomatic bradycardia. Beta jey was discontinued. Patient did receive IV dopamine. Heart rate did come up. Also had COVID 19 pneumonitis. With a pulse ox of 86% documented ECF. Patient was started on dexamethasone Lovenox. 2 which responded well. Also was hypoxic oxygen supplemented. Patient also has significant hyponatremia with a sodium of 118. Was given salt tablets, fluid restriction, IV saline. Responded well. Sodium came up to 138. Patient was educated about her diet and fluids. Today-patient doing well. Feeling better. Oral intake better. More cheerful. Pulse ox is come up nicely 100% on 2 L. Care was discussed with the patient. Questions answered. Heart rate is been stable in the 50s. Discussed with social welfare administrator. Patient be going home with home care. Discussion and discharge planning more than 35 minutes Consultation: Dr. Preson from nephrology Dr. Knox from ID Dr. Rivero from cardiology Past medical history to include: Diabetes mellitus type 2, hypertension, hyperlipidemia, coronary artery disease with stents with last stent being on October 18 following acute RI postprocedure Social history: No history of smoking or alcohol. . Currently at getting rehab at [facility]. Physical examination: VITAL SIGNS: 98.2, 59, 18, and 64/65, 100% on 2 L GENERAL: Sitting up in a chair, more cheerful EYES: Pupils equal. Conjunctiva pale. NECK: JVD not raised; masses not palpable. HEART: First and second heart sounds are normal; no edema. LUNGS:[ Respiratory rate normal, slightly decreased breath sounds. ABDOMEN: Soft, nontender, liver spleen not palpable, no masses palpable. PSYCH: Alert and oriented x3; mood and affect normal EXTREMITIES: Right foot has a brace INVESTIGATIONS, reviewed in the clinical context: November 02: Potassium 4.1 sodium 138 creatinine 1.74 serum osmolality 290 WBC 5.8 hemoglobin 9.2 platelets 261 d-dimer 2.7 sodium 118 potassium 6 repeat 5.6 bun 36 creatinine 1.93 [BUN 33 creatinine 1.75 on October 19 was bracketed TSH 2.1 Coronavirus [PCR]-detected EKG tracing personally reviewed by me-normal sinus rhythm with a rate of 34 Chest x-ray film personally reviewed by me-cardiomegaly, some basal changes/infiltrate Assessment and plan: -Symptomatic bradycardia, beta jey discontinued. Received IV dopamine . -COVID 19 pneumonitis. Causing hypoxia. Patient's pulse ox was found to be 86% at the ECF as documented by the staff and EMS report. Patient started on dexamethasone. Subcu Lovenox. Pulse ox greatly improved Symptoms improved -Acute hypoxic respiratory failure secondary to COVID 19. Supplement oxygen- improved -Recent acute non-Q wave RI on October 18, postprocedure ankle ORIF followed by stenting to proximal RCA and OM 1, continue with aspirin and Brillinta -Coronary artery disease with prior history of stents, continue aspirin and Lipitor amlodipine -Essential hypertension. 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 Patient has a documented creatinine of 1.4 in January 2018. -Normocytic anemia likely from underlying chronic kidney disease. Follow H&H -Severe hyponatremia likely with hypo-osmolarity from excessive water intake and poor solute intake-corrected -Hyperkalemia secondary to kidney disease. Give Kayexalate if and corrected -Metabolic acidosis due to renal failure -oral bicarb -Left bundle-branch block Disposition: Home with therapy BMP: 5 days Plan - Discharge Summary Discharge Rx Participant: No New Discharge Prescriptions: New dexAMETHasone [Hexadrol] 6 mg PO DAILY #24 tablet Zinc Sulfate [Orazinc] 220 mg PO DAILY cap Ascorbic Acid [Vitamin C] 1,000 mg PO DAILY tab sitaGLIPtin PHOSPHATE [Januvia] 50 mg PO DAILY #30 tab Famotidine [Pepcid] 20 mg PO DAILY tab Sodium Bicarbonate Tab 650 mg PO DAILY tab Rivaroxaban [Xarelto] 2.5 mg PO DAILY #28 tablet Continue Levothyroxine Sodium [Synthroid] 75 mcg PO HS@2100 Ezetimibe [Zetia] 10 mg PO HS@2100 amLODIPine BESYLATE 5 mg PO HS@2100 Vit C/E/Zn/Coppr/Lutein/Zeaxan [Preservision Areds 2 Softgel] 1 cap PO DAILY@0900 Cyanocobalamin (Vitamin B-12) [Vitamin B-12] 3,000 mcg PO DAILY@0900 Nitroglycerin Sl Tabs [Nitrostat] 0.4 mg SUBLINGUAL Q5M PRN tab PRN Reason: Chest Pain Atorvastatin [Lipitor] 40 mg PO HS@2100 Dorzolamide 2% [Trusopt 2%] 1 drops BOTH EYES BID@0900,2100 Ergocalciferol (Vitamin D2) [Vitamin D2 (2000 Iu)] 50 mcg PO DAILY@0900 Latanoprost [Xalatan 0.005%] 1 drop BOTH EYES HS@2100 Polyethylene Glycol 3350 [Miralax] 17 gm PO DAILY PRN PRN Reason: Constipation Ticagrelor [Brilinta] 90 mg PO BID@0900,2100 Sennosides-Docusate Sodium [Senokot-S] 2 tab PO HS PRN PRN Reason: Constipation Aspirin 81 mg PO HS@2100 Zolpidem [Ambien] 5 mg PO HS PRN #3 tab PRN Reason: Insomnia Changed HYDROcodone/APAP 5-325MG [[place] 5-325] 1 tab PO Q4H PRN #18 tab PRN Reason: Pain Discontinued Potassium Gluconate 99 mg PO HS@2099 lisinopriL 40 mg PO DAILY@0900 Metoprolol Tartrate [Lopressor] 25 mg PO BID@899,2099 sitaGLIPtin PHOS/metFORMIN HCL [Janumet 50-500 mg Tablet] 1 tab PO DAILY@0900 Discharge Medication List Cyanocobalamin (Vitamin B-12) [Vitamin B-12] 3,000 mcg PO DAILY@89910/11/20 [History] Ezetimibe [Zetia] 10 mg PO HS@209910/11/20 [History] Levothyroxine Sodium [Synthroid] 75 mcg PO HS@209910/11/20 [History] Vit C/E/Zn/Coppr/Lutein/Zeaxan [Preservision Areds 2 Softgel] 1 cap PO DAILY@89910/11/20 [History] amLODIPine BESYLATE 5 mg PO HS@209910/11/20 [History] Nitroglycerin Sl Tabs [Nitrostat] 0.4 mg SUBLINGUAL Q5M PRN tab 10/19/20 [Rx] Aspirin 81 mg PO HS@209911/01/20 [History] Atorvastatin [Lipitor] 40 mg PO HS@209911/01/20 [History] Dorzolamide 2% [Trusopt 2%] 1 drops BOTH EYES BID@0900,209911/01/20 [History] Ergocalciferol (Vitamin D2) [Vitamin D2 (2000 Iu)] 50 mcg PO DAILY@89911/01/20 [History] Latanoprost [Xalatan 0.005%] 1 drop BOTH EYES HS@209911/01/20 [History] Polyethylene Glycol 3350 [Miralax] 17 gm PO DAILY PRN 11/01/20 [History] Sennosides-Docusate Sodium [Senokot-S] 2 tab PO HS PRN 11/01/20 [History] Ticagrelor [Brilinta] 90 mg PO BID@0900,209911/01/20 [History] Ascorbic Acid [Vitamin C] 1,000 mg PO DAILY tab 11/02/20 [Rx] Famotidine [Pepcid] 20 mg PO DAILY tab 11/02/20 [Rx] HYDROcodone/APAP 5-325MG [[place] 5-325] 1 tab PO Q4H PRN #18 tab 11/02/20 [Rx] Rivaroxaban [Xarelto] 2.5 mg PO DAILY #28 tablet 11/02/20 [Rx] Sodium Bicarbonate Tab 650 mg PO DAILY tab 11/02/20 [Rx] Zinc Sulfate [Orazinc] 220 mg PO DAILY cap 11/02/20 [Rx] Zolpidem [Ambien] 5 mg PO HS PRN #3 tab 11/02/20 [Rx] dexAMETHasone [Hexadrol] 6 mg PO DAILY #24 tablet 11/02/20 [Rx] sitaGLIPtin PHOSPHATE [Januvia] 50 mg PO DAILY #30 tab 11/02/20 [Rx] Follow up Appointment(s)/Referral(s): Dino Rivero MD [STAFF PHYSICIAN] - 1 Week (please call for follow-up appt.) Gabriela Person MD [STAFF PHYSICIAN] - 1 Week (Please call for follow-up) Wicho Corona MD [Primary Care Provider] - 1-2 days (please call for follow-up appt.) [facility], [NON-STAFF] - (please call for follow-up appt.) Patient Instructions/Handouts: Coronavirus Disease 2019 (COVID-19), Bradycardia (DC) Activity/Diet/Wound Care/Special Instructions: bmp - 5 days Discharge Disposition: HOME SELF-CARE
--- NOTE | 2020-11-04 16:03 | P.PN ---
Progress Note - Text Progress Note Date: 11/02/20 REASON FOR FOLLOWUP: Covid 19 infection INTERVAL HISTORY: Patient is 85-year-old female presented to hospital With increasing shortness of breath, patient did have positive covid test, On today's evaluation the patient denies having any fever or any chills, the patient is feeling much Better breathing comfortably no chest pain occasional cough no abdominal pain no diarrhea PHYSICAL EXAMINATION: Blood pressure 156/80 with a pulse of 75, temperature 98.1, pt is 97% on room air. General description is an elderly male, lying in bed in no distress. RESPIRATORY SYSTEM: Unlabored breathing, clear to auscultation anteriorly. HEART: S1, S2. Regular rate and rhythm. ABDOMEN: Soft, no tenderness. EXTREMITIES: No edema of the feet. LABS: Reviewed DIAGNOSTIC IMPRESSION AND PLAN: Patient admitted to hospital with weakness This patient diagnosed with a Covid infection, patient seemed to have responded to Supportive treatment of IV fluids along with zinc and ascorbic acid, no need for Remdisivir or steroids
== END 2020-11-02 17:10 | disposition home health service (06) | DRG 177 ==
LOC: EC 06:37 → 3SCARD 08:20
PROVIDERS: ADMIT Hospitalist; ATTEND Hospitalist
DX: U07.1 COVID-19 (principal); J12.82 Pneumonia due to coronavirus disease 2019; J96.01 Acute respiratory failure with hypoxia; E87.1 Hypo-osmolality and hyponatremia; E87.2 Acidosis; N17.9 Acute kidney failure, unspecified; D63.1 Anemia in chronic kidney disease; I08.2 Rheumatic disorders of both aortic and tricuspid valves; E11.22 Type 2 diabetes mellitus with diabetic chronic kidney disease; N18.30 Chronic kidney disease, stage 3 unspecified; I27.20 Pulmonary hypertension, unspecified; I12.9 Hypertensive chronic kidney disease with stage 1 through stage 4 chronic kidney disease, or unspecified chronic kidney disease; E86.1 Hypovolemia; E87.5 Hyperkalemia; E78.5 Hyperlipidemia, unspecified; E03.9 Hypothyroidism, unspecified; I44.7 Left bundle-branch block, unspecified; R00.1 Bradycardia, unspecified; S82.891D Other fracture of right lower leg, subsequent encounter for closed fracture with routine healing; I25.2 Old myocardial infarction; I25.10 Atherosclerotic heart disease of native coronary artery without angina pectoris; R32 Unspecified urinary incontinence; Z79.82 Long term (current) use of aspirin; Z79.890 Hormone replacement therapy; Z79.02 Long term (current) use of antithrombotics/antiplatelets; Z79.899 Other long term (current) drug therapy; Z90.710 Acquired absence of both cervix and uterus; Z95.5 Presence of coronary angioplasty implant and graft; Z87.42 Personal history of other diseases of the female genital tract; Z90.89 Acquired absence of other organs; Z98.890 Other specified postprocedural states; Z88.8 Allergy status to other drugs, medicaments and biological substances; W19.XXXD Unspecified fall, subsequent encounter; Z80.51 Family history of malignant neoplasm of kidney; Z80.49 Family history of malignant neoplasm of other genital organs
CPT/HCPCS: 36415; 71045; 76770; 80048; 80053; 83605; 83735; 83880; 83930; 84132; 84295; 84443; 84484; 85025; 85379; 85610; 85730; 87635; 93005; 96374; 99285

== ENCOUNTER 2021-06-22 13:43 | Inpatient (IN) | payer MEDICARE ==
[2021-06-22 16:30] LABS: Anisocytosis Slight; Basophils # (A) 0.1 k/uL (0-0.2); Basophils % (A) 1 %; Eosinophils # (A) 0.6 k/uL (0-0.7); Eosinophils % (A) 7 %; HCT 40.1 % (34.0-46.0); HGB 13.5 gm/dL (11.4-16.0); Lymphocytes # (A) 1.8 k/uL (1.0-4.8); Lymphocytes % (A) 21 %; MCH 30.5 pg (25.0-35.0); MCHC 33.6 g/dL (31.0-37.0); MCV 90.7 fL (80.0-100.0); Mean Platelet Volume 7.6; Monocytes # (A) 0.4 k/uL (0-1.0); Monocytes % (A) 5 %; Neutrophils # (A) 5.7 k/uL (1.3-7.7); Neutrophils % (A) 65 %; Platelet Count 356 k/uL (150-450); RBC 4.42 m/uL (3.80-5.40); RDW 16.1 % (11.5-15.5); WBC 8.7 k/uL (3.8-10.6)
[2021-06-22 16:39] LABS: Albumin 3.7 g/dL (3.5-5.0); Calcium 10.7 mg/dL (8.4-10.2); Potassium 4.7 mmol/L (3.5-5.1); Total Bilirubin 0.4 mg/dL (0.2-1.3); Total Protein 6.8 g/dL (6.3-8.2)
[2021-06-22 16:43] LABS: INR 0.9 (<1.2); Partial Thromboplastin Time 22.4 sec (22.0-30.0); Prothrombin Time 9.4 sec (9.0-12.0)
[2021-06-22 17:51] LABS: Appearance,Urine Clear (Clear); Bilirubin,Urine Negative (Negative); Blood,Urine Large (Negative); Color,Urine Light Yellow; Glucose,Urine (UA) Negative (Negative); Ketones,Urine Negative (Negative); Leukocyte Esterase,Urine Negative (Negative); Nitrite,Urine Negative (Negative); PH, Urine 6.5 (5.0-8.0); Protein,Urine 1+ (Negative); RBC,Urine <1 /hpf (0-5); Specific Gravity,Urine 1.009 (1.001-1.035); Squamous Epithelial Cell,Urine <1 /hpf (0-4); Urobilinogen,Urine <2.0 mg/dL (<2.0); WBC,Urine 1 /hpf (0-5)
[2021-06-22] MEDS ORDERED: SODIUM CHLORIDE 0.9% 1,000 ML IV ONE (18:47)
[2021-06-22] MEDS ORDERED: NALOXONE 0.4 MG/ML 1 ML VIAL IV PRN (18:52)
--- NOTE | 2021-06-22 18:53 | ED ---
Weakness HPI - General Chief complaint: Weakness Stated complaint: abd labs Time Seen by Provider: 06/22/21 15:35 Source: patient Mode of arrival: ambulatory Limitations: no limitations - History of Present Illness Initial comments: 85-year-old female past medical history of diabetes, hypertension, hyperlipidemia presents to the emergency department by request of her primary care doctor. Patient has complained of generalized weakness for the past 2 w eeks. States that she normally and relates with a walker however has been unable to ambulate at all. States that the weakness is generalized, upper and lower extremities. Denies any chest pain or shortness of breath. She saw her primary care doctor who completed some labs. She was found to have a CK of 7500. It was recommended that she come to the hospital for IV fluids and admission. Patient recently started spironolactone, iron, calcitriol and was on a course of doxycycline. PCP is concerned that these medications are what precipitated her rhabdo. These medications were started by Dr. Becerra. She denies fevers, chills, nausea, vomiting. No urinary changes. No other alleviating, precipitating or modifying factors - Related Data Home Medications Medication Instructions Recorded Confirmed Cyanocobalamin (Vitamin B-12) 3,000 mcg PO DAILY 10/11/20 06/22/21 [Vitamin B-12] Levothyroxine Sodium [Synthroid] 75 mcg PO DAILY 10/11/20 06/22/21 Vit C/E/Zn/Coppr/Lutein/Zeaxan 1 cap PO DAILY 10/11/20 06/22/21 [Preservision Areds 2 Softgel] Aspirin 81 mg PO DAILY 11/01/20 06/22/21 Latanoprost [Xalatan 0.005%] 1 drop BOTH EYES HS 11/01/20 06/22/21 Biotin 10,000 mcg PO DAILY 06/22/21 06/22/21 Dorzolamide/Timolol/Pf 1 drop BOTH EYES BID 06/22/21 06/22/21 [Dorzolamide 2%-Timolol 0.5%] allopurinoL [Zyloprim] 50 mg PO DAILY 06/22/21 06/22/21 Previous Rx's Medication Instructions Recorded Nitroglycerin Sl Tabs [Nitrostat] 0.4 mg SUBLINGUAL Q5M PRN tab 10/19/20 Zinc Sulfate [Orazinc] 220 mg PO DAILY cap 11/02/20 Cinacalcet [Sensipar] 30 mg PO DAILY #30 tab 06/27/21 amLODIPine [Norvasc] 5 mg PO DAILY #30 tab 06/27/21 hydrALAZINE HCL [Apresoline] 100 mg PO TID #90 tablet 06/27/21 Allergies Allergy/AdvReac Type Severity Reaction Status Date / Time clopidogrel [From Plavix] Allergy Rash/Hives Verified 06/22/21 18:40 Review of Systems ROS Statement: Those systems with pertinent positive or pertinent negative responses have been documented in the HPI. ROS Other: All systems not noted in ROS Statement are negative. Past Medical History Past Medical History: Diabetes Mellitus, Hyperlipidemia, Hypertension History of Any Multi-Drug Resistant Organisms: None Reported Past Surgical History: Back Surgery, Heart Catheterization With Stent, Hysterectomy Additional Past Surgical History / Comment(s): 3 cardiac stents. Cystocele repair, right ankle ORIF (10/14/20) Past Anesthesia/Blood Transfusion Reactions: No Reported Reaction Date of Last Stent Placement:: 2014 Past Psychological History: No Psychological Hx Reported Smoking Status: Never smoker Past Alcohol Use History: None Reported Past Drug Use History: None Reported - Past Family History Daughter(s) Family Medical History: Cancer Additional Family Medical History / Comment(s): Cervical and kidney cancer. General Exam Limitations: no limitations General appearance: alert, in no apparent distress Head exam: Present: atraumatic, normocephalic, normal inspection Eye exam: Present: normal appearance, PERRL, EOMI. Absent: scleral icterus, conjunctival injection, periorbital swelling ENT exam: Present: normal exam, mucous membranes moist Neck exam: Present: normal inspection. Absent: tenderness, meningismus, lymphadenopathy Respiratory exam: Present: normal lung sounds bilaterally. Absent: respiratory distress, wheezes, rales, rhonchi, stridor Cardiovascular Exam: Present: regular rate, normal rhythm, normal heart sounds. Absent: systolic murmur, diastolic murmur, rubs, gallop, clicks GI/Abdominal exam: Present: soft, normal bowel sounds. Absent: distended, tenderness, guarding, rebound, rigid Extremities exam: Present: normal inspection, full ROM, normal capillary refill. Absent: tenderness, pedal edema, joint swelling, calf tenderness Back exam: Present: normal inspection Neurological exam: Present: alert, oriented X3, CN II-XII intact Psychiatric exam: Present: normal affect, normal mood Skin exam: Present: warm, dry, intact, normal color. Absent: rash Course Vital Signs 06/22/21 06/22/21 15:33 21:00 Temperature 98.0 F Pulse Rate 66 67 Respiratory 18 17 Rate Blood Pressure 165/71 189/69 O2 Sat by Pulse 98 99 Oximetry EKG Findings - EKG Comments: EKG Findings:: EKG demonstrates a normal sinus rhythm with a ventricular rate of 61. MA interval 176. QRS 144. QTC of 469. Left bundle branch block. Negative for sgarbossa criteria Medical Decision Making - Medical Decision Making Upon arrival patient is placed into room 22. I did review her results from her primary care physician office. IV is established and laboratory studies are conducted. Patient given a liter bolus of normal saline and started on for 75 mL per hour. Laboratory studies reviewed. CK 7909. Patient has persistent elevation of her AST and ALT and therefore gallbladder ultrasound is ordered. Recommended admission for rhabdomyolysis. Spoke with Dr. Fuchs who agreed to admit the patient. Will consult nephrology. Patient was taken to the floor in stable condition - Lab Data Result diagrams: 06/25/21 12:03 06/27/21 09:01 Lab Results 06/22/21 06/22/21 06/22/21 Range/Units 06:39 16:01 16:01 WBC 8.7 (3.8-10.6) k/uL RBC 4.42 (3.80-5.40) m/uL Hgb 13.5 (11.4-16.0) gm/dL Hct 40.1 (34.0-46.0) % MCV 90.7 (80.0-100.0) fL MCH 30.5 (25.0-35.0) pg MCHC 33.6 (31.0-37.0) g/dL RDW 16.1 H (11.5-15.5) % Plt Count 356 (150-450) k/uL MPV 7.6 Neutrophils % 65 % Lymphocytes % 21 % Monocytes % 5 % Eosinophils % 7 % Basophils % 1 % Neutrophils # 5.7 (1.3-7.7) k/uL Lymphocytes # 1.8 (1.0-4.8) k/uL Monocytes # 0.4 (0-1.0) k/uL Eosinophils # 0.6 (0-0.7) k/uL Basophils # 0.1 (0-0.2) k/uL Anisocytosis Slight PT 9.4 (9.0-12.0) sec INR 0.9 (<1.2) APTT 22.4 (22.0-30.0) sec Sodium (137-145) mmol/L Potassium (3.5-5.1) mmol/L Chloride (98-107) mmol/L Carbon Dioxide (22-30) mmol/L Anion Gap mmol/L BUN (7-17) mg/dL Creatinine (0.52-1.04) mg/dL Est GFR (CKD-EPI)AfAm (>60 ml/min/1.73 sqM) Est GFR (CKD-EPI)NonAf (>60 ml/min/1.73 sqM) Glucose (74-99) mg/dL Plasma Lactic Acid Keon (0.7-2.0) mmol/L Calcium (8.4-10.2) mg/dL Total Bilirubin (0.2-1.3) mg/dL AST (14-36) U/L ALT (4-34) U/L Alkaline Phosphatase (38-126) U/L Creatine Kinase 3431 H* (26-186) U/L Troponin I (0.000-0.034) ng/mL Total Protein (6.3-8.2) g/dL Albumin (3.5-5.0) g/dL 06/22/21 06/22/21 06/22/21 Range/Units 16:01 16:01 16:01 WBC (3.8-10.6) k/uL RBC (3.80-5.40) m/uL Hgb (11.4-16.0) gm/dL Hct (34.0-46.0) % MCV (80.0-100.0) fL MCH (25.0-35.0) pg MCHC (31.0-37.0) g/dL RDW (11.5-15.5) % Plt Count (150-450) k/uL MPV Neutrophils % % Lymphocytes % % Monocytes % % Eosinophils % % Basophils % % Neutrophils # (1.3-7.7) k/uL Lymphocytes # (1.0-4.8) k/uL Monocytes # (0-1.0) k/uL Eosinophils # (0-0.7) k/uL Basophils # (0-0.2) k/uL Anisocytosis PT (9.0-12.0) sec INR (<1.2) APTT (22.0-30.0) sec Sodium 137 (137-145) mmol/L Potassium 4.7 (3.5-5.1) mmol/L Chloride 103 (98-107) mmol/L Carbon Dioxide 27 (22-30) mmol/L Anion Gap 7 mmol/L BUN 40 H (7-17) mg/dL Creatinine 1.51 H (0.52-1.04) mg/dL Est GFR (CKD-EPI)AfAm 37 (>60 ml/min/1.73 sqM) Est GFR (CKD-EPI)NonAf 32 (>60 ml/min/1.73 sqM) Glucose 211 H (74-99) mg/dL Plasma Lactic Acid Keon 1.2 (0.7-2.0) mmol/L Calcium 10.7 H (8.4-10.2) mg/dL Total Bilirubin 0.4 (0.2-1.3) mg/dL AST 403 H (14-36) U/L ALT 352 H (4-34) U/L Alkaline Phosphatase 198 H (38-126) U/L Creatine Kinase (26-186) U/L Troponin I <0.012 (0.000-0.034) ng/mL Total Protein 6.8 (6.3-8.2) g/dL Albumin 3.7 (3.5-5.0) g/dL 06/22/21 Range/Units 16:01 WBC (3.8-10.6) k/uL RBC (3.80-5.40) m/uL Hgb (11.4-16.0) gm/dL Hct (34.0-46.0) % MCV (80.0-100.0) fL MCH (25.0-35.0) pg MCHC (31.0-37.0) g/dL RDW (11.5-15.5) % Plt Count (150-450) k/uL MPV Neutrophils % % Lymphocytes % % Monocytes % % Eosinophils % % Basophils % % Neutrophils # (1.3-7.7) k/uL Lymphocytes # (1.0-4.8) k/uL Monocytes # (0-1.0) k/uL Eosinophils # (0-0.7) k/uL Basophils # (0-0.2) k/uL Anisocytosis PT (9.0-12.0) sec INR (<1.2) APTT (22.0-30.0) sec Sodium (137-145) mmol/L Potassium (3.5-5.1) mmol/L Chloride (98-107) mmol/L Carbon Dioxide (22-30) mmol/L Anion Gap mmol/L BUN (7-17) mg/dL Creatinine (0.52-1.04) mg/dL Est GFR (CKD-EPI)AfAm (>60 ml/min/1.73 sqM) Est GFR (CKD-EPI)NonAf (>60 ml/min/1.73 sqM) Glucose (74-99) mg/dL Plasma Lactic Acid Keon (0.7-2.0) mmol/L Calcium (8.4-10.2) mg/dL Total Bilirubin (0.2-1.3) mg/dL AST (14-36) U/L ALT (4-34) U/L Alkaline Phosphatase (38-126) U/L Creatine Kinase 7909 H* (26-186) U/L Troponin I (0.000-0.034) ng/mL Total Protein (6.3-8.2) g/dL Albumin (3.5-5.0) g/dL Disposition Clinical Impression: Rhabdomyolysis Disposition: ADMITTED IP TO THIS [facility] Condition: Stable Is patient prescribed a controlled substance at d/c from ED?: No Decision to Admit Reason: Admit from EC Decision Date: 06/22/21 Decision Time: 18:52
[2021-06-22] MEDS ORDERED: cloNIDine HCL 0.2 MG TAB PO STA (21:58)
[2021-06-22] MEDS: SODIUM CHLORIDE 0.9% 1,000 ML IV SCH (22:09)
--- NOTE | 2021-06-22 22:17 | US ---
EXAMINATION TYPE: US abdomen limited DATE OF EXAM: 06/22/2021 COMPARISON: CT, US CLINICAL HISTORY:Cholecystectomy, appendectomy. Elevated liver enzymes. EXAM MEASUREMENTS: Liver Length: 15.2 cm CBD: 0.87 cm Right Kidney: 9.4 x 5.5 x 4.3 cm Limited due to overlying bowel gas. Pancreas: Obscured by gas. Liver: Appears coarse in echotexture. Gallbladder: Surgically absent. Evidence for sonographic Knott's sign: No. CBD: Appears wnl post-cholecystectomy measuring 0.87 cm. Right Kidney: Renal pelvis appears to be dilated medially. Prominent pyramids. Hyperechoic focus see n: 0.3 x 0.4 x 0.2 cm. IMPRESSION: No acute process.
[2021-06-23] MEDS ORDERED: LATANOPROST 0.005% OPHTH DROPS 2.5 ML BTL BOTH EYES SCH (01:00)
[2021-06-23] MEDS ORDERED: cloNIDine HCL 0.2 MG TAB PO PRN (02:59)
--- NOTE | 2021-06-23 03:02 | P.HPIM ---
History of Present Illness H&P Date: 06/22/21 Chief Complaint: generalized weakness 85 year old female with DM , hypertension , hyperlipidemia , and CAD s/p stents patient comes in due to progressive generalized weakness over the past 2 weeks or less. denies any associated chest pain or trouble breathing. denies any leg edema or GI bleeding. denies any fever, or chills. she went to her pcp for some blood work and check up , who reported to her that she has abnormal blood work that she needs to go to the ED for care. as she was diagnosed with acute rhabdomyolysis she reports increase weakness in her bilateral legs as they feel weak and sore. she recently was started on some new meds doxycycline ,iron , spironolactone , and calcitriol she is not aware of the indications. she is vaccinated against COVID work up in the ED showed elevated liver enzymes , VERO and rhabdo trops negative abd US no acute pathology in liver Review of Systems Pertinent positives as noted in HPI. All other systems were reviewed and are negative Past Medical History Past Medical History: Diabetes Mellitus, Hyperlipidemia, Hypertension History of Any Multi-Drug Resistant Organisms: None Reported Past Surgical History: Back Surgery, Heart Catheterization With Stent, Hysterectomy Additional Past Surgical History / Comment(s): 3 cardiac stents. Cystocele repair, right ankle ORIF (10/14/20) Past Anesthesia/Blood Transfusion Reactions: No Reported Reaction Date of Last Stent Placement:: 2014 Past Psychological History: No Psychological Hx Reported Smoking Status: Never smoker Past Alcohol Use History: None Reported Past Drug Use History: None Reported - Past Family History Daughter(s) Family Medical History: Cancer Additional Family Medical History / Comment(s): Cervical and kidney cancer. Medications and Allergies Home Medications Medication Instructions Recorded Confirmed Type Cyanocobalamin (Vitamin B-12) 3,000 mcg PO DAILY 10/11/20 06/22/21 History [Vitamin B-12] Ezetimibe [Zetia] 10 mg PO DAILY 10/11/20 06/22/21 History Levothyroxine Sodium [Synthroid] 75 mcg PO DAILY 10/11/20 06/22/21 History Vit C/E/Zn/Coppr/Lutein/Zeaxan 1 cap PO DAILY 10/11/20 06/22/21 History [Preservision Areds 2 Softgel] Nitroglycerin Sl Tabs [Nitrostat] 0.4 mg SUBLINGUAL Q5M PRN tab 10/19/20 06/22/21 Rx Aspirin 81 mg PO DAILY 11/01/20 06/22/21 History Latanoprost [Xalatan 0.005%] 1 drop BOTH EYES HS 11/01/20 06/22/21 History Zinc Sulfate [Orazinc] 220 mg PO DAILY cap 11/02/20 06/22/21 Rx Biotin 10,000 mcg PO DAILY 06/22/21 06/22/21 History Dorzolamide/Timolol/Pf 1 drop BOTH EYES BID 06/22/21 06/22/21 History [Dorzolamide 2%-Timolol 0.5%] Simvastatin (Unknown Dose) 1 tab PO DAILY 06/22/21 06/22/21 History allopurinoL [Zyloprim] 50 mg PO DAILY 06/22/21 06/22/21 History Allergies Allergy/AdvReac Type Severity Reaction Status Date / Time clopidogrel [From Plavix] Allergy Rash/Hives Verified 06/22/21 18:40 Physical Exam Vitals: Vital Signs Temp Pulse Resp BP Pulse Ox 06/22/21 15:33 98.0 F 66 18 165/71 98 Intake and Output 06/22/21 06/22/21 06/22/21 06:59 14:59 22:59 Other: Weight 65.771 kg Constitutional: No acute distress, conversant, pleasant Eyes: Anicteric sclerae, moist conjunctiva, Pupils equal round reactive to light ENMT: NC/AT Oropharynx clear, no erythema, or exudates Neck: Supple, no masses, or JVD No carotid bruits No thyromegaly Lungs: Clear to auscultation Clear to percussion Normal respiratory effort, no accessory muscle use Cardiovascular: Heart regular in rate and rhythm, systolic murmurs, no gallops, or rubs mild pitting peripheral edema bilaterally Abdominal: Soft Nontender, no guarding, rebound or rigidity Abdomen moving with respiration Normoactive bowel sounds No hepatomegaly, No splenomegaly No palpable mass No abdominal wall hernia noted Skin: Normal temperature, tone, texture, turgor No induration No subcutaneous nodules No rash, lesions No ulcers Extremities: No digital cyanosis No clubbing Pedal pulses intact and symmetrical Radial pulses intact and symmetrical No calf tenderness Psychiatric: Alert and oriented to person, place and time Appropriate affect fair judgement Neuro Muscles Strength 4/5 in bilateral upper extremities , and 3/5 in bilateral lower extremities Sensation to light touch grossly present throughout Cranial nerves II-XII grossly intact Lymphatics: no palpable cervical or supraclavicular , or inguinal lymph nodes Results CBC & Chem 7: 06/22/21 16:01 06/22/21 16:01 Labs: Abnormal Lab Results - Last 24 Hours (Table) 06/22/21 06/22/21 06/22/21 Range/Units 16:01 16: 16:01 RDW 16.1 H (11.5-15.5) % BUN 40 H (7-17) mg/dL Creatinine 1.51 H (0.52-1.04) mg/dL Glucose 211 H (74-99) mg/dL Calcium 10.7 H (8.4-10.2) mg/dL AST 403 H (14-36) U/L ALT 352 H (4-34) U/L Alkaline Phosphatase 198 H (38-126) U/L Creatine Kinase 7909 H* (30-135) U/L Urine Protein (Negative) Urine Blood (Negative) 06/22/21 Range/Units Unknown RDW (11.5-15.5) % BUN (7-17) mg/dL Creatinine (0.52-1.04) mg/dL Glucose (74-99) mg/dL Calcium (8.4-10.2) mg/dL AST (14-36) U/L ALT (4-34) U/L Alkaline Phosphatase (38-126) U/L Creatine Kinase (30-135) U/L Urine Protein 1+ H (Negative) Urine Blood Large H (Negative) Assessment and Plan Assessment: VERO secondary to rhabdomyolysis suspect to be secondary to cholestrol lowering drugs rare side effect acute transaminitis hold Zetia IVF hydration with normal saline monitor CK level avoid fluid overload monitor urine output nephrology consult abd US no liver abnormalities uncontrolled hypertension clonidine PRN chronic conditions CAD s/p stents DM on insulin sliding scale artificial tear drops full code anticipated length of stay > 2 midnights anticipated discharge home
[2021-06-23] MEDS: LEVOTHYROXINE 75 MCG TAB PO SCH (05:40)
[2021-06-23 07:25] LABS: Basophils % (A) 0 %; Eosinophils # (A) 0.5 k/uL (0-0.7); Eosinophils % (A) 8 %; HCT 35.2 % (34.0-46.0); HGB 11.3 gm/dL (11.4-16.0); Lymphocytes # (A) 1.5 k/uL (1.0-4.8); Lymphocytes % (A) 24 %; MCH 30.2 pg (25.0-35.0); MCHC 32.2 g/dL (31.0-37.0); Mean Platelet Volume 7.7; Monocytes # (A) 0.4 k/uL (0-1.0); Monocytes % (A) 6 %; Neutrophils # (A) 3.8 k/uL (1.3-7.7); Neutrophils % (A) 59 %; Platelet Count 260 k/uL (150-450); RBC 3.74 m/uL (3.80-5.40); RDW 15.7 % (11.5-15.5); WBC 6.5 k/uL (3.8-10.6)
[2021-06-23] MEDS: INSULIN ASPART (NovoLOG) 100 UNIT/ML VIAL SQ SCH ×5 (08:47→20:42)
[2021-06-23] MEDS: VIT A,C & E-LUTEIN-MINERALS 1 EACH TAB PO SCH (08:47)
[2021-06-23] MEDS: allopurinoL 100 MG TAB PO SCH (08:48)
[2021-06-23] MEDS: ASPIRIN 81 MG PO SCH (08:48)
[2021-06-23] MEDS: ZINC SULFATE 220 MG CAP PO SCH (08:49)
[2021-06-23] MEDS: CYANOCOBALAMIN 500 MCG TAB PO SCH (08:49)
[2021-06-23] MEDS ORDERED: EZETIMIBE 10 MG TAB PO SCH (09:00)
[2021-06-23] MEDS ORDERED: NON FORMULARY DRUG (Biotin [Biotin] 10,000 MCG Capsule) PO SCH (09:00)
[2021-06-23] MEDS ORDERED: DORZOLAMIDE-TIMOLOL 2.23%/0.68 10ML BTL BOTH EYES SCH (09:00)
--- NOTE | 2021-06-23 10:18 | P.NPCON ---
History of Present Illness - Reason for Consult chronic renal failure - History of Present Illness Reason for consultation: Chronic kidney disease and rhabdomyolysis History of present illness: Patient is a 85-year-old female seen in renal consultation for chronic kidney disease and rhabdomyolysis. Patient has chronic kidney disease stage IV with baseline creatinine near 1.5-1.7 secondary to ischemic nephropathy and nephrosclerosis. Patient presented to the hospital due to abnormal labs. Patient was feeling weak in upper and lower extremities and had blood work done by her primary care physician. His CK level was elevated at 7909 and she was advised to quit hospital for IV fluids. She's currently receiving IV fluids. Patient states there hasn't been any recent changes in her medications. She does take simvastatin as well as ezetimibe. Patient also states that she's been mostly staying in her bed for the last 2 weeks due to the weakness. She denies chest pain or shortness of breath. No hematuria or dysuria. She does have history of diabetes. No vomiting or diarrhea. Oral intake is fair. Blood pressure has been on the higher side. Vital signs are stable. General: The patient appeared well nourished and normally developed. HEENT: Head exam is unremarkable. LUNGS: Breath sounds decreased. HEART: Rate and Rhythm are regular. First and ABDOMEN: Soft, no distention. EXTREMITITES: Trace edema. Past Medical History Past Medical History: Diabetes Mellitus, Hyperlipidemia, Hypertension Last Myocardial Infarction Date:: 10/2020 History of Any Multi-Drug Resistant Organisms: None Reported Past Surgical History: Back Surgery, Heart Catheterization With Stent, H ysterectomy Additional Past Surgical History / Comment(s): 3 cardiac stents. Cystocele repair, right ankle ORIF (10/14/20) Past Anesthesia/Blood Transfusion Reactions: No Reported Reaction Date of Last Stent Placement:: 2014 Past Psychological History: No Psychological Hx Reported Smoking Status: Never smoker Past Alcohol Use History: None Reported Past Drug Use History: None Reported - Past Family History Daughter(s) Family Medical History: Cancer Additional Family Medical History / Comment(s): Cervical and kidney cancer. Medications and Allergies Home Medications Medication Instructions Recorded Confirmed Type Cyanocobalamin (Vitamin B-12) 3,000 mcg PO DAILY 10/11/20 06/22/21 History [Vitamin B-12] Ezetimibe [Zetia] 10 mg PO DAILY 10/11/20 06/22/21 History Levothyroxine Sodium [Synthroid] 75 mcg PO DAILY 10/11/20 06/22/21 History Vit C/E/Zn/Coppr/Lutein/Zeaxan 1 cap PO DAILY 10/11/20 06/22/21 History [Preservision Areds 2 Softgel] Nitroglycerin Sl Tabs [Nitrostat] 0.4 mg SUBLINGUAL Q5M PRN tab 10/19/20 06/22/21 Rx Aspirin 81 mg PO DAILY 11/01/20 06/22/21 History Latanoprost [Xalatan 0.005%] 1 drop BOTH EYES HS 11/01/20 06/22/21 History Zinc Sulfate [Orazinc] 220 mg PO DAILY cap 11/02/20 06/22/21 Rx Biotin 10,000 mcg PO DAILY 06/22/21 06/22/21 History Dorzolamide/Timolol/Pf 1 drop BOTH EYES BID 06/22/21 06/22/21 History [Dorzolamide 2%-Timolol 0.5%] allopurinoL [Zyloprim] 50 mg PO DAILY 06/22/21 06/22/21 History Simvastatin [Zocor] 80 mg PO DAILY 06/23/21 06/23/21 History Allergies Allergy/AdvReac Type Severity Reaction Status Date / Time clopidogrel [From Plavix] Allergy Rash/Hives Verified 06/22/21 18:40 Physical Exam Vitals: Vital Signs Temp Pulse Pulse Pulse Resp BP BP 06/23/21 08:02 42 L 06/23/21 07:04 97.5 F L 42 L 14 156/55 06/23/21 00:30 97.4 F L 54 L 16 156/67 06/22/21 21:00 67 17 189/69 06/22/21 15:33 98.0 F 66 18 165/71 Pulse Ox 06/23/21 08:02 06/23/21 07:04 95 06/23/21 00:30 98 06/22/21 21:00 99 06/22/21 15:33 98 Intake and Output 06/22/21 06/23/21 06/23/21 22:59 06:59 14:59 Intake Total 240 1839 Output Total 800 800 Balance 240 1039 -800 Intake: Intake, IV Titration 1599 Amount Sodium Chloride 0.9% 1, 600 000 ml @ 100 mls/hr IV . Q10H [facility] Rx#:[id number] Sodium Chloride 0.9% 1, 999 000 ml @ 999 mls/hr IV . Q1H1M [facility] Rx#:[id number] Oral 240 240 Output: Urine 800 800 Other: Weight 65.771 kg Results - Lab Results Most recent lab results Calcium 10.7 mg/dL (8.4-10.2) H 06/22/21 16:01 06/23/21 06:39 06/22/21 16:01 Assessment and Plan Plan: Assessment: 1. Chronic kidney disease stage IV with baseline creatinine in the range of 1.5-1.7 secondary to ischemic nephropathy. Renal function stable. 2. Hypercalcemia maintained on Sensipar outpatient. Calcium level 10.7 on admission. 3. Rhabdomyolysis secondary to immobility as well as simvastatin and ezetimibe. CK level 7909 on admission. 4. Diabetes mellitus. 5. Hypertension with chronic any disease. Plan: Maintain IV fluids. Follow-up morning labs as well as CK level. Add hydralazine 25 mg 3 times daily. To be held for systolic blood pressure less than 125. Hold simvastatin and ezetimibe. Not on any calcium or vitamin D supplements. Resume Sensipar 30 mg once a week. Check further workup for the hypercalcemia including parathyroid nuclear scan. Continue to monitor renal function and urine output. Thank you for the consultation. I will continue to follow the patient with you during her hospital stay.
[2021-06-23 11:22] LABS: African American GFR (CKD) 44.4 (60.0-200.0); Albumin 3.1 g/dL (3.8-4.9); Albumin/Globulin Ratio 1.36 (1.60-3.17); BUN/Creat Ratio 24.42 Ratio (12.00-20.00); Blood Urea Nitrogen 31.5 mg/dL (9.0-27.0); Calcium 9.8 mg/dL (8.7-10.3); Globulin 2.3 g/dL (1.6-3.3); Non-African American GFR(CKD) 38.3 (60.0-200.0); Potassium 4.5 mmol/L (3.5-5.5); Total Bilirubin 0.2 mg/dL (0.30-1.20); Total Protein 5.3 g/dL (6.2-8.2)
[2021-06-23 12:53] LABS: Glucose,Whole Blood 117 mg/dL (75-99)
[2021-06-23] MEDS: SODIUM CHLORIDE 0.9% 1,000 ML IV SCH ×2 (13:49→18:19)
--- NOTE | 2021-06-23 14:28 | P.PN ---
Subjective No acute events overnight Objective - Vital Signs Vital signs: Vital Signs Temp 97.7 F 06/23/21 12:43 Pulse 56 L 06/23/21 12:43 Resp 16 06/23/21 12:43 BP 179/66 06/23/21 12:43 Pulse Ox 97 06/23/21 12:43 Intake & Output 06/22/21 06/23/21 06/23/21 18:59 06:59 18:59 Intake Total 2079 180 Output Total 800 800 Balance 1279 -620 Weight 65.771 kg 65.771 kg Intake: Intake, IV Titration 1599 Amount Sodium Chloride 0.9% 1, 600 000 ml @ 100 mls/hr IV . Q10H [facility] Rx#:[id number] Sodium Chloride 0.9% 1, 999 000 ml @ 999 mls/hr IV . Q1H1M [facility] Rx#:[id number] Oral 480 180 Output: Urine 800 800 - Exam General: The patient is awake and alert, in no distress Eye: there is normal conjunctiva bilaterally. Neck: The neck is supple, there is no JVD. Cardiovascular: Normal S1-S2, no S3-S4, no murmurs. Respiratory: Lungs clear to auscultation bilaterally Gastrointestinal: Abdomen is soft, nontender Musculoskeletal: There is no pedal edema. Neurological:. Speech is normal. Skin: Skin is warm and dry - Labs CBC & Chem 7: 06/23/21 06:39 06/23/21 06:39 Labs: Abnormal Lab Results - Last 24 Hours (Table) 06/22/21 06/22/21 06/22/21 Range/Units 16:01 16:01 16:01 RBC (3.80-5.40) m/uL Hgb (11.4-16.0) gm/dL RDW 16.1 H (11.5-15.5) % Chloride (96-109) mmol/L Carbon Dioxide (21.6-31.8) mmol/L BUN 40 H (7-17) mg/dL Creatinine 1.51 H (0.52-1.04) mg/dL Est GFR (CKD-EPI)AfAm (60.0-200.0) Est GFR (CKD-EPI)NonAf (60.0-200.0) BUN/Creatinine Ratio (12.00-20.00) Ratio Glucose 211 H (74-99) mg/dL POC Glucose (mg/dL) (75-99) mg/dL Calcium 10.7 H (8.4-10.2) mg/dL Total Bilirubin (0.30-1.20) mg/dL AST 403 H (14-36) U/L ALT 352 H (4-34) U/L Alkaline Phosphatase 198 H (38-126) U/L Creatine Kinase 7909 H* (30-135) U/L Total Protein (6.2-8.2) g/dL Albumin (3.8-4.9) g/dL Albumin/Globulin Ratio (1.60-3.17) g/dL Urine Protein (Negative) Urine Blood (Negative) 06/22/21 06/23/21 06/23/21 Range/Units Unknown 06:39 06:39 RBC 3.74 L (3.80-5.40) m/uL Hgb 11.3 L (11.4-16.0) gm/dL RDW 15.7 H (11.5-15.5) % Chloride 111 H (96-109) mmol/L Carbon Dioxide 21.0 L (21.6-31.8) mmol/L BUN 31.5 H (7-17) mg/dL Creatinine (0.52-1.04) mg/dL Est GFR (CKD-EPI)AfAm 44.4 L (60.0-200.0) Est GFR (CKD-EPI)NonAf 38.3 L (60.0-200.0) BUN/Creatinine Ratio 24.42 H (12.00-20.00) Ratio Glucose 124 H (74-99) mg/dL POC Glucose (mg/dL) (75-99) mg/dL Calcium (8.4-10.2) mg/dL Total Bilirubin 0.20 L (0.30-1.20) mg/dL AST 238 H (14-36) U/L ALT 270 H (4-34) U/L Alkaline Phosphatase 158 H (38-126) U/L Creatine Kinase (30-135) U/L Total Protein 5.3 L (6.2-8.2) g/dL Albumin 3.1 L (3.8-4.9) g/dL Albumin/Globulin Ratio 1.36 L (1.60-3.17) g/dL Urine Protein 1+ H (Negative) Urine Blood Large H (Negative) 06/23/21 Range/Units 12:51 RBC (3.80-5.40) m/uL Hgb (11.4-16.0) gm/dL RDW (11.5-15.5) % Chloride (96-109) mmol/L Carbon Dioxide (21.6-31.8) mmol/L BUN (7-17) mg/dL Creatinine (0.52-1.04) mg/dL Est GFR (CKD-EPI)AfAm (60.0-200.0) Est GFR (CKD-EPI)NonAf (60.0-200.0) BUN/Creatinine Ratio (12.00-20.00) Ratio Glucose (74-99) mg/dL POC Glucose (mg/dL) 117 H (75-99) mg/dL Calcium (8.4-10.2) mg/dL Total Bilirubin (0.30-1.20) mg/dL AST (14-36) U/L ALT (4-34) U/L Alkaline Phosphatase (38-126) U/L Creatine Kinase (30-135) U/L Total Protein (6.2-8.2) g/dL Albumin (3.8-4.9) g/dL Albumin/Globulin Ratio (1.60-3.17) g/dL Urine Protein (Negative) Urine Blood (Negative) Assessment and Plan Assessment: This is a 85-year-old female with past medical history noted below Presented to the emergency room with progressive generalized weakness for 2 weeks. Patient was evaluated in the ER and admitted for further management of her medical problems noted below. 1. Acute rhabdomyolysis secondary to high-dose simvastatin 80 mg prescribed at home in addition to Zetia. Medication was discontinued. Patient started on aggressive IV fluid hydration. Repeat creatine kinase tomorrow. 2. Transaminitis, secondary to above 3. Chronic kidney disease with mild acute kidney injury on presentation resolved with IV fluid Chronic medical problems: Type 2 diabetes, coronary artery disease with prior stent placement, hypertension
[2021-06-23] MEDS: hydrALAZINE HCL 25 MG TAB PO SCH ×2 (16:13→20:43)
[2021-06-23 17:50] LABS: Glucose,Whole Blood 156 mg/dL (75-99)
--- NOTE | 2021-06-23 18:22 | NM ---
EXAMINATION TYPE: NM parathyroid WITH SPECT DATE OF EXAM: 06/23/2021 COMPARISON: NONE HISTORY: 85-year-old female hypercalcemia. TECHNIQUE: Following administration of 22.5 mCi Tc99m Sestamibi. Anterior projection images of the ne ck and chest were obtained 10 minutes and 3 hours post injection. SPECT images of the neck and chest were obtained and reconstructed in three axes. FINDINGS: Thyroid tracer washout: Delayed images demonstrate near-complete tracer washout from the thyroid. Parathyroid uptake: None. The two-hour delayed images do not demonstrate any focal abnormal persisten t uptake in the region of the parathyroid glands to suggest parathyroid adenoma. Normal uptake: There is physiological tracer uptake in the salivary glands and thyroid gland. IMPRESSION: No scintigraphic evidence for parathyroid adenoma.
[2021-06-23 20:38] LABS: Glucose,Whole Blood 141 mg/dL (75-99)
[2021-06-23 21:25] LABS: Protein, Total 5.5 g/dL (6.2-8.2)
[2021-06-24] MEDS: SODIUM CHLORIDE 0.9% 1,000 ML IV SCH ×3 (05:38→21:22)
[2021-06-24] MEDS: LEVOTHYROXINE 75 MCG TAB PO SCH (05:50)
[2021-06-24 06:53] LABS: Glucose,Whole Blood 98 mg/dL (75-99)
[2021-06-24] MEDS: INSULIN ASPART (NovoLOG) 100 UNIT/ML VIAL SQ SCH ×4 (07:06→20:43)
[2021-06-24] MEDS: VIT A,C & E-LUTEIN-MINERALS 1 EACH TAB PO SCH (07:57)
[2021-06-24] MEDS: hydrALAZINE HCL 25 MG TAB PO SCH ×3 (07:57→20:41)
[2021-06-24] MEDS: ASPIRIN 81 MG PO SCH (07:57)
[2021-06-24] MEDS: ZINC SULFATE 220 MG CAP PO SCH (07:57)
[2021-06-24] MEDS: allopurinoL 100 MG TAB PO SCH (07:58)
[2021-06-24] MEDS: CYANOCOBALAMIN 500 MCG TAB PO SCH (07:58)
--- NOTE | 2021-06-24 09:14 | P.PN ---
Subjective Patient is seen in follow-up for acute kidney injury on chronic disease and rhabdomyolysis. Renal function stable. On IV fluids. No vomiting or diarrhea. Vital signs are stable. General: The patient appeared well nourished and normally developed. HEENT: Head exam is unremarkable. LUNGS: Breath sounds decreased. HEART: Rate and Rhythm are regular. ABDOMEN: Soft, no distention. EXTREMITITES: No edema. Objective - Vital Signs Vital signs: Vital Signs Temp 97.6 F 06/24/21 04:35 Pulse 58 L 06/24/21 07:56 Resp 16 06/24/21 04:35 BP 163/63 06/24/21 07:56 Pulse Ox 97 06/24/21 04:35 Intake & Output 06/23/21 06/24/21 06/24/21 18:59 06:59 18:59 Intake Total 180 600 Output Total 800 Balance -620 600 Intake: Intake, IV Titration 600 Amount Sodium Chloride 0.9% 1, 600 000 ml @ 100 mls/hr IV . Q10H [facility] Rx#:[id number] Oral 180 Output: Urine 800 Other: Voiding Method Bedside Commode # Voids 4 3 - Labs CBC & Chem 7: 06/23/21 06:39 06/23/21 06:39 Labs: Abnormal Lab Results - Last 24 Hours (Table) 06/23/21 06/23/21 06/23/21 Range/Units 06:39 06:39 06:39 Chloride 111 H (96-109) mmol/L Carbon Dioxide 21.0 L (21.6-31.8) mmol/L BUN 31.5 H (9.0-27.0) mg/dL Est GFR (CKD-EPI)AfAm 44.4 L (60.0-200.0) Est GFR (CKD-EPI)NonAf 38.3 L (60.0-200.0) BUN/Creatinine Ratio 24.42 H (12.00-20.00) Ratio Glucose 124 H (70-110) mg/dL POC Glucose (mg/dL) (75-99) mg/dL Hemoglobin A1c 7.0 H (4.0-6.0) % Total Bilirubin 0.20 L (0.30-1.20) mg/dL AST 238 H (13-35) U/L ALT 270 H (8-44) U/L Alkaline Phosphatase 158 H (41-126) U/L Total Protein 5.3 L (6.2-8.2) g/dL Total Protein (PEP) 5.5 L (6.2-8.2) g/dL Albumin 3.1 L (3.8-4.9) g/dL Albumin/Globulin Ratio 1.36 L (1.60-3.17) g/dL PTH Intact (14.0-72.0) pg/mL 06/23/21 06/23/21 06/23/21 Range/Units 06:39 12:51 17:49 Chloride (96-109) mmol/L Carbon Dioxide (21.6-31.8) mmol/L BUN (9.0-27.0) mg/dL Est GFR (CKD-EPI)AfAm (60.0-200.0) Est GFR (CKD-EPI)NonAf (60.0-200.0) BUN/Creatinine Ratio (12.00-20.00) Ratio Glucose (70-110) mg/dL POC Glucose (mg/dL) 117 H 156 H (75-99) mg/dL Hemoglobin A1c (4.0-6.0) % Total Bilirubin (0.30-1.20) mg/dL AST (13-35) U/L ALT (8-44) U/L Alkaline Phosphatase (41-126) U/L Total Protein (6.2-8.2) g/dL Total Protein (PEP) (6.2-8.2) g/dL Albumin (3.8-4.9) g/dL Albumin/Globulin Ratio (1.60-3.17) g/dL PTH Intact 101.0 H (14.0-72.0) pg/mL 06/23/21 Range/Units 20:37 Chloride (96-109) mmol/L Carbon Dioxide (21.6-31.8) mmol/L BUN (9.0-27.0) mg/dL Est GFR (CKD-EPI)AfAm (60.0-200.0) Est GFR (CKD-EPI)NonAf (60.0-200.0) BUN/Creatinine Ratio (12.00-20.00) Ratio Glucose (70-110) mg/dL POC Glucose (mg/dL) 141 H (75-99) mg/dL Hemoglobin A1c (4.0-6.0) % Total Bilirubin (0.30-1.20) mg/dL AST (13-35) U/L ALT (8-44) U/L Alkaline Phosphatase (41-126) U/L Total Protein (6.2-8.2) g/dL Total Protein (PEP) (6.2-8.2) g/dL Albumin (3.8-4.9) g/dL Albumin/Globulin Ratio (1.60-3.17) g/dL PTH Intact (14.0-72.0) pg/mL Assessment and Plan Plan: Assessment: 1. Chronic kidney disease stage IV with baseline creatinine in the range of 1.5-1.7 secondary to ischemic nephropathy. Renal function stable. 2. Hypercalcemia maintained on Sensipar outpatient. Calcium level 10.7 on admission - 9.8 yesterday. PTH 101. Vitamin D 47. No evidence of parathyroid adenoma. 3. Rhabdomyolysis secondary to immobility as well as simvastatin and ezetimibe. CK level 7909 on admission. 4. Diabetes mellitus. 5. Hypertension with chronic any disease. stable. Plan: Maintain IV fluids. Follow-up morning labs as well as CK level. Hold simvastatin and ezetimibe. Not on any calcium and vitamin D supplements. Maintain sensipar 30 mg once a week. Follow-up hypercalcemia workup. Continue to monitor renal function and urine output.
--- NOTE | 2021-06-24 12:47 | P.PN ---
Subjective Patient is doing better today. Her muscle weakness and pain improved significantly. No acute events overnight. Morning labs still pending. Objective - Vital Signs Vital signs: Vital Signs Temp 97.6 F 06/24/21 11:33 Pulse 38 L 06/24/21 11:33 Resp 16 06/24/21 11:33 BP 130/67 06/24/21 11:33 Pulse Ox 97 06/24/21 11:33 Intake & Output 06/23/21 06/24/21 06/24/21 18:59 06:59 18:59 Intake Total 180 600 Output Total 800 Balance -620 600 Intake: Intake, IV Titration 600 Amount Sodium Chloride 0.9% 1, 600 000 ml @ 100 mls/hr IV . Q10H [facility] Rx#:[id number] Oral 180 Output: Urine 800 Other: Voiding Method Bedside Commode Bedside Commode # Voids 4 3 - Exam General: The patient is awake and alert, in no distress Eye: there is normal conjunctiva bilaterally. Neck: The neck is supple, there is no JVD. Cardiovascular: Normal S1-S2, no S3-S4, no murmurs. Respiratory: Lungs clear to auscultation bilaterally Gastrointestinal: Abdomen is soft, nontender Musculoskeletal: There is no pedal edema. Neurological:. Speech is normal. Skin: Skin is warm and dry - Labs CBC & Chem 7: 06/23/21 06:39 06/23/21 06:39 Labs: Abnormal Lab Results - Last 24 Hours (Table) 06/23/21 06/23/21 06/23/21 Range/Units 06:39 06:39 06:39 POC Glucose (mg/dL) (75-99) mg/dL Hemoglobin A1c 7.0 H (4.0-6.0) % Total Protein (PEP) 5.5 L (6.2-8.2) g/dL PTH Intact 101.0 H (14.0-72.0) pg/mL 06/23/21 06/23/21 06/23/21 Range/Units 12:51 17:49 20:37 POC Glucose (mg/dL) 117 H 156 H 141 H (75-99) mg/dL Hemoglobin A1c (4.0-6.0) % Total Protein (PEP) (6.2-8.2) g/dL PTH Intact (14.0-72.0) pg/mL Assessment and Plan Assessment: This is a 85-year-old female with past medical history noted below Presented to the emergency room with progressive generalized weakness for 2 weeks. Patient was evaluated in the ER and admitted for further management of her medical problems noted below. 1. Acute rhabdomyolysis secondary to high-dose simvastatin 80 mg prescribed at home in addition to Zetia. Medication was discontinued. Patient started on aggressive IV fluid hydration. Repeat creatine kinase tomorrow. 2. Transaminitis, secondary to above, awaiting repeat lab work 3. Chronic kidney disease with mild acute kidney injury on presentation resolved with IV fluid 4. Mild hypercalcemia with elevated PTH level, parathyroid scan with no evidence of adenoma. Follow-up outpatient. Chronic medical problems: Type 2 diabetes, coronary artery disease with prior stent placement, hypertension Continue current regimen otherwise. Physical therapy evaluation. Distended discharged home within the next day or 2.
[2021-06-24 13:54] LABS: African American GFR (CKD) 42.7 (60.0-200.0); Albumin/Globulin Ratio 1.32 (1.60-3.17); Anion Gap 10.2 mmol/L (4.00-12.00); BUN/Creat Ratio 25.49 Ratio (12.00-20.00); Blood Urea Nitrogen 33.9 mg/dL (9.0-27.0); Carbon Dioxide 19.4 mmol/L (21.6-31.8); Globulin 2.3 g/dL (1.6-3.3); Non-African American GFR(CKD) 36.9 (60.0-200.0); Potassium 4.4 mmol/L (3.5-5.5); Total Bilirubin 0.2 mg/dL (0.30-1.20); Total Protein 5.3 g/dL (6.2-8.2)
[2021-06-24 17:23] LABS: Glucose,Whole Blood 103 mg/dL (75-99)
[2021-06-24 20:39] LABS: Glucose,Whole Blood 90 mg/dL (75-99)
[2021-06-25 06:03] LABS: Glucose,Whole Blood 83 mg/dL (75-99)
[2021-06-25] MEDS: LEVOTHYROXINE 75 MCG TAB PO SCH (06:23)
[2021-06-25] MEDS: INSULIN ASPART (NovoLOG) 100 UNIT/ML VIAL SQ SCH ×4 (06:28→20:58)
[2021-06-25] MEDS ORDERED: hydrALAZINE HCL 50 MG TAB PO SCH (09:00)
--- NOTE | 2021-06-25 09:00 | P.PN ---
Subjective Patient is seen in follow-up for acute kidney injury on chronic disease and rhabdomyolysis. Renal function stable. On IV fluids. No vomiting or diarrhea. CK levels trended down. Patient noted to be bradycardic. Cardiology is following. Vital signs are stable. General: The patient appeared well nourished and normally developed. HEENT: Head exam is unremarkable. LUNGS: Breath sounds decreased. HEART: Bradycardic. ABDOMEN: Soft, no distention. EXTREMITITES: No edema. Objective - Vital Signs Vital signs: Vital Signs Temp 97.6 F 06/24/21 17:00 Pulse 54 L 06/25/21 03:01 Resp 18 06/25/21 03:01 BP 170/58 06/25/21 03:01 Pulse Ox 96 06/25/21 03:01 Intake & Output 06/24/21 06/25/21 06/25/21 18:59 06:59 18:59 Intake Total 1820 Output Total 1850 Balance 1820 -1850 Weight 68 kg Intake: Intake, IV Titration 1100 Amount Sodium Chloride 0.9% 1, 1100 000 ml @ 100 mls/hr IV . Q[facility]H [facility] Rx#:[id number] Oral 720 Output: Urine 1850 Other: Voiding Method Bedside Commode External Catheter # Voids 4 - Labs CBC & Chem 7: 06/23/21 06:39 06/24/21 07:41 Labs: Abnormal Lab Results - Last 24 Hours (Table) 06/24/21 06/24/21 Range/Units 07:41 17:06 Carbon Dioxide 19.4 L (21.6-31.8) mmol/L BUN 33.9 H (9.0-27.0) mg/dL Est GFR (CKD-EPI)AfAm 42.7 L (60.0-200.0) Est GFR (CKD-EPI)NonAf 36.9 L (60.0-200.0) BUN/Creatinine Ratio 25.49 H (12.00-20.00) Ratio POC Glucose (mg/dL) 103 H (75-99) mg/dL Total Bilirubin 0.20 L (0.30-1.20) mg/dL AST 206 H (13-35) U/L ALT 243 H (8-44) U/L Alkaline Phosphatase 149 H (41-126) U/L Creatine Kinase 3404 H* (26-186) U/L Total Protein 5.3 L (6.2-8.2) g/dL Albumin 3.0 L (3.8-4.9) g/dL Albumin/Globulin Ratio 1.32 L (1.60-3.17) g/dL Assessment and Plan Plan: Assessment: 1. Chronic kidney disease stage IV with baseline creatinine in the range of 1.5-1.7 secondary to ischemic nephropathy. Renal function stable. 2. Hypercalcemia maintained on Sensipar outpatient. Calcium level 10.0 yesterday. PTH 101. Vitamin D 47. No evidence of parathyroid adenoma. 3. Rhabdomyolysis secondary to immobility as well as simvastatin and ezetimibe. CK level 7909 on admission. 4. Diabetes mellitus. 5. Hypertension with chronic any disease. Blood pressure high. 6. Bradycardia. Cardiology following. Plan: Maintain IV fluids. Follow-up morning labs as well as CK level. Hold simvastatin and ezetimibe. Not on any calcium and vitamin D supplements. Maintain sensipar 30 mg once a week. Follow-up PRIYA level and electrophoresis studies. Continue to monitor renal function and urine output. Follow-up echocardiogram. Increase hydralazine to 50 mg 3 times daily.
[2021-06-25] MEDS: CYANOCOBALAMIN 500 MCG TAB PO SCH (09:49)
[2021-06-25] MEDS: VIT A,C & E-LUTEIN-MINERALS 1 EACH TAB PO SCH (09:49)
[2021-06-25] MEDS: allopurinoL 100 MG TAB PO SCH (09:50)
[2021-06-25] MEDS: ZINC SULFATE 220 MG CAP PO SCH (09:50)
[2021-06-25] MEDS: ASPIRIN 81 MG PO SCH (09:50)
[2021-06-25 12:13] LABS: Glucose,Whole Blood 100 mg/dL (75-99)
[2021-06-25] MEDS: SODIUM CHLORIDE 0.9% 1,000 ML IV SCH ×2 (12:31→21:04)
[2021-06-25 12:52] LABS: Basophils # (A) 0.1 k/uL (0-0.2); Basophils % (A) 1 %; Eosinophils # (A) 0.5 k/uL (0-0.7); Eosinophils % (A) 6 %; HCT 40.1 % (34.0-46.0); HGB 12.5 gm/dL (11.4-16.0); Lymphocytes # (A) 1.6 k/uL (1.0-4.8); Lymphocytes % (A) 19 %; MCH 29.7 pg (25.0-35.0); MCHC 31.3 g/dL (31.0-37.0); MCV 94.9 fL (80.0-100.0); Mean Platelet Volume 7.7; Monocytes # (A) 0.5 k/uL (0-1.0); Monocytes % (A) 5 %; Neutrophils # (A) 5.7 k/uL (1.3-7.7); Neutrophils % (A) 68 %; Platelet Count 276 k/uL (150-450); RBC 4.22 m/uL (3.80-5.40); RDW 15.8 % (11.5-15.5); WBC 8.5 k/uL (3.8-10.6)
--- NOTE | 2021-06-25 13:04 | P.CRDCN ---
History of Present Illness Consult date: 06/25/21 Reason for Consult (text): Bradycardia History of present illness: HISTORY OF PRESENTING ILLNESS This is a pleasant 85-year-old female past medical history significant for coronary artery disease s/p recent PCI in the setting of NSTEMI 10/18/20, hypertension, dyslipidemia, diabetes mellitus and recent ankle ORIF surgery. She follows in the office with Dr. Oliver. Patient had hospitalization 10/17/2020 for ORIF ankle surgery s/p fall and fracture. Post-operatively she suffered a NSTEMI and underwent PCI of proximal RCA and OM1. She was discharged to [facility] for rehabilitation. She presented to ER due to shortness of breath and cough. She has been diagnosed with COVID 19. Initially on evaluation her heart rates were in the mid50's however she then went down to the 30's. Patient was treated with dopamine and improvement of her heart rate was obtained, beta jey was held. Patient now presents to the hospital on 06/22 found to have rhabdomyolysis secondary to simvastatin and Zetia. We've been asked to see the patient due to bradycardia. She did have episode of 20 8 in the afternoon yesterday. Through the night, patient was mostly in the 30s but during the day up in the 50s. Patient is not on any rate control medications. Echocardiogram performed on 10/17/2020 revealed ejection fraction 50-55% with mid anterior and mid anteroseptal LV wall motion hypokinesia, mild aortic stenosis with mean gradient of 10 mmHg, mild to moderate tricuspid regurgitation and mild pulmonary hypertension with an RVSP of 41 mmHg. REVIEW OF SYSTEMS At the time of my exam: CONSTITUTIONAL: Denies fever or chills. Reports generalized weakness and fatigue CARDIOVASCULAR: Denies of shortness of breath. Denies chest pain, orthopnea, PND or palpitations. RESPIRATORY: Complains of cough. GASTROINTESTINAL: Denies abdominal pain, diarrhea, constipation, nausea or vomiting. MUSCULOSKELETAL: Denies myalgias. NEUROLOGIC: Denies numbness, tingling, headacbe or weakness. ENDOCRINE: Denies fatigue, weight change, polydipsia or polyurina. GENITOURINARY: Denies burning, hematuria or urgency with micturation. HEMATOLOGIC: Denies history of anemia or bleeding. PHYSICAL EXAMINATION Blood pressure 170/58, heart rate 54, pulse ox 96% on room air. Gen: This is an 85-year-old female. She is sitting up in a recliner appears to be comfortable and in no acute distress. HEENT: Head is atraumatic, normocephalic. Pupils equal, round. Sclerae is anicteric. NECK: Supple. No JVD. No lymphadenopathy. No thyromegaly. LUNGS: Clear to auscultation. No wheezes or rhonchi. No intercostal retractions. HEART: Regular rate and rhythm. 2/6 Systolic ejection murmur. ABDOMEN: Soft. Bowel sounds are present. No masses. No tenderness. EXTREMITIES: No pedal edema. No calf tenderness. NEUROLOGICAL: Patient is awake, alert and oriented x3. Cranial nerves 2 through 12 are grossly intact. ASSESSMENT Sinus bradycardia, asymptomatic Acute kidney injury Rhabdomyolysis secondary to simvastatin and Zetia Coronary artery disease status post recent PCI Hypertension Dyslipidemia Diabetes mellitus PLAN Increase hydralazine to 100 mg 3 times daily for improved blood pressure control and may help increase heart rate Obtain 2-D echocardiogram and Doppler study to assess cardiac structure and function Continue telemetry monitoring. Further recommendations based upon patient's clinical course Thank you kindly for this consultation Nurse Practitioner note has been reviewed, I agree with a documented findings and plan of care. Patient was seen and examined. Past Medical History Past Medical History: Diabetes Mellitus, Hyperlipidemia, Hypertension Last Myocardial Infarction Date:: 10/2020 History of Any Multi-Drug Resistant Organisms: None Reported Past Surgical History: Back Surgery, Heart Catheterization With Stent, Hysterectomy Additional Past Surgical History / Comment(s): 3 cardiac stents. Cystocele repair, right ankle ORIF (10/14/20) Past Anesthesia/Blood Transfusion Reactions: No Reported Reaction Date of Last Stent Placement:: 2014 Past Psychological History: No Psychological Hx Reported Smoking Status: Never smoker Past Alcohol Use History: None Reported Past Drug Use History: None Reported - Past Family History Daughter(s) Family Medical History: Cancer Additional Family Medical History / Comment(s): Cervical and kidney cancer. Medications and Allergies Home Medications Medication Instructions Recorded Confirmed Type Cyanocobalamin (Vitamin B-12) 3,000 mcg PO DAILY 10/11/20 06/22/21 History [Vitamin B-12] Ezetimibe [Zetia] 10 mg PO DAILY 10/11/20 06/22/21 History Levothyroxine Sodium [Synthroid] 75 mcg PO DAILY 10/11/20 06/22/21 History Vit C/E/Zn/Coppr/Lutein/Zeaxan 1 cap PO DAILY 10/11/20 06/22/21 History [Preservision Areds 2 Softgel] Nitroglycerin Sl Tabs [Nitrostat] 0.4 mg SUBLINGUAL Q5M PRN tab 10/19/20 06/22/21 Rx Aspirin 81 mg PO DAILY 11/01/20 06/22/21 History Latanoprost [Xalatan 0.005%] 1 drop BOTH EYES HS 11/01/20 06/22/21 History Zinc Sulfate [Orazinc] 220 mg PO DAILY cap 11/02/20 06/22/21 Rx Biotin 10,000 mcg PO DAILY 06/22/21 06/22/21 History Dorzolamide/Timolol/Pf 1 drop BOTH EYES BID 06/22/21 06/22/21 History [Dorzolamide 2%-Timolol 0.5%] allopurinoL [Zyloprim] 50 mg PO DAILY 06/22/21 06/22/21 History Simvastatin [Zocor] 80 mg PO DAILY 06/23/21 06/23/21 History Allergies Allergy/AdvReac Type Severity Reaction Status Date / Time clopidogrel [From Plavix] Allergy Rash/Hives Verified 06/22/21 18:40 Physical Exam Vitals: Vital Signs Temp Pulse Resp BP BP Pulse Ox 06/25/21 03:01 54 L 18 170/58 96 06/25/21 01:53 56 L 16 06/25/21 00:00 56 L 16 166/57 96 06/24/21 20:00 16 06/24/21 19:45 65 16 188/73 98 06/24/21 17:00 97.6 F 68 16 184/66 98 06/24/21 11:33 97.6 F 38 L 16 130/67 97 06/24/21 08:00 47 L 16 Intake and Output 06/24/21 06/25/21 06/25/21 22:59 06:59 14:59 Intake Total 1820 Output Total 1000 850 Balance 820 -850 Intake: Intake, IV Titration 1100 Amount Sodium Chloride 0.9% 1, 1100 000 ml @ 100 mls/hr IV . Q10H [facility] Rx#:[id number] Oral 720 Output: Urine 1000 850 Other: Voiding Method External Catheter External Catheter # Voids 4 Weight 68 kg Results 06/25/21 12:03 06/24/21 07:41 Cardiac Enzymes 06/24/21 Range/Units 07:41 AST 206 H (13-35) U/L Comprehensive Metabolic Panel 06/24/21 Range/Units 07:41 Sodium 137 (135-145) mmol/L Potassium 4.4 (3.5-5.5) mmol/L Chloride 108 (96-109) mmol/L Carbon Dioxide 19.4 L (21.6-31.8) mmol/L BUN 33.9 H (9.0-27.0) mg/dL Creatinine 1.3 (0.6-1.5) mg/dL Glucose 103 (70-110) mg/dL Calcium 10.0 (8.7-10.3) mg/dL AST 206 H (13-35) U/L ALT 243 H (8-44) U/L Alkaline Phosphatase 149 H (41-126) U/L Total Protein 5.3 L (6.2-8.2) g/dL Albumin 3.0 L (3.8-4.9) g/dL Current Medications Generic Name Dose Route Start Last Admin Trade Name Freq PRN Reason Stop Dose Admin Allopurinol 50 mg 06/23/21 09:00 06/24/21 07:58 Allopurinol 100 Mg Tab PO 50 mg DAILY [facility] Administration Artificial Tears 2 drops 06/23/21 03:00 Artificial Tears-Hypromellose Drops 15 Ml Btl BOTH EYES QID PRN Dry Eye(s) Aspirin 81 mg 06/23/21 09:00 06/24/21 07:57 Aspirin 81 Mg PO 81 mg DAILY [facility] Administration Cinacalcet 30 mg 06/30/21 09:00 Cinacalcet 30 Mg Tab PO WEEKLY [facility] Cyanocobalamin 3,000 mcg 06/23/21 09:00 06/24/21 07:58 Cyanocobalamin 500 Mcg Tab PO 3,000 mcg DAILY [facility] Administration Hydralazine HCl 25 mg 06/23/21 16:00 06/24/21 20:41 Hydralazine Hcl 25 Mg Tab PO 25 mg TID [facility] Administration Sodium Chloride 1,000 mls @ 100 mls/hr 06/22/21 18:30 06/24/21 21:22 Saline 0.9% IV Not Given .Q10H [facility] Insulin Aspart 0 unit 06/23/21 07:30 06/25/21 06:28 Insulin Aspart (Novolog) 100 Unit/Ml Vial SQ Not Given ACHS [facility] Protocol Levothyroxine Sodium 75 mcg 06/23/21 06:30 06/25/21 06:23 Levothyroxine 75 Mcg Tab PO 75 mcg DAILY@0630 [facility] Administration Multivitamins/Minerals 1 each 06/23/21 09:00 06/24/21 07:57 Vit A,C & U-Vcsfze-Pydksfnx 1 Each Tab PO 1 each DAILY [facility] Administration Naloxone HCl 0.2 mg 06/22/21 18:52 Naloxone 0.4 Mg/Ml 1 Ml Vial IV Q2M PRN Opioid Reversal Zinc Sulfate 220 mg 06/23/21 09:00 06/24/21 07:57 Zinc Sulfate 220 Mg Cap PO 220 mg DAILY [facility] Administration Intake and Output 06/24/21 06/25/21 06/25/21 22:59 06:59 14:59 Intake Total 1820 Output Total 1000 850 Balance 820 -850 Intake: Intake, IV Titration 1100 Amount Sodium Chloride 0.9% 1, 1100 000 ml @ 100 mls/hr IV . Q10H [facility] Rx#:[id number] Oral 720 Output: Urine 1000 850 Other: Voiding Method External Catheter External Catheter # Voids 4 Weight 68 kg 06/23/21 06:39 06/24/21 07:41
[2021-06-25 13:14] LABS: Albumin 3.5 g/dL (3.5-5.0); Calcium 10.7 mg/dL (8.4-10.2); Potassium 4.4 mmol/L (3.5-5.1); Total Bilirubin 0.5 mg/dL (0.2-1.3); Total Protein 6.7 g/dL (6.3-8.2)
--- NOTE | 2021-06-25 14:57 | P.PN ---
Subjective Patient was transferred to telemetry floor secondary to significant bradycardia yesterday during the day with heart rates in the 40s and occasionally upper 30s and at night to the 20s when patient is sleeping. Patient is completely asymptomatic. She is sitting up in the chair this morning when I saw her. Heart rate on telemetry monitoring in the 50s and low 60s. Patient is not on any beta blockers. She was seen and evaluated by cardiology. No acute events overnight reported to me by nursing staff. Objective - Vital Signs Vital signs: Vital Signs Temp 97.1 F L 06/25/21 08:30 Pulse 63 06/25/21 12:30 Resp 16 06/25/21 12:30 BP 187/61 06/25/21 12:30 Pulse Ox 98 06/25/21 12:30 Intake & Output 06/24/21 06/25/21 06/25/21 18:59 06:59 18:59 Intake Total 1820 390 Output Total 1850 Balance 1820 -1850 390 Weight 68 kg Intake: Intake, IV Titration 1100 Amount Sodium Chloride 0.9% 1, 1100 000 ml @ 100 mls/hr IV . Q10H [facility] Rx#:[id number] Oral 720 390 Output: Urine 1850 Other: Voiding Method Bedside Commode External Catheter External Catheter # Voids 4 - Exam General: The patient is awake and alert, in no distress Eye: there is normal conjunctiva bilaterally. Neck: The neck is supple, there is no JVD. Cardiovascular: Normal S1-S2, no S3-S4, no murmurs. Respiratory: Lungs clear to auscultation bilaterally Gastrointestinal: Abdomen is soft, nontender Musculoskeletal: There is no pedal edema. Neurological:. Speech is normal. Skin: Skin is warm and dry - Labs CBC & Chem 7: 06/25/21 12:03 06/25/21 12:03 Labs: Abnormal Lab Results - Last 24 Hours (Table) 06/24/21 06/25/21 06/25/21 Range/Units 17:06 11:52 12:03 RDW 15.8 H (11.5-15.5) % Chloride (98-107) mmol/L BUN (7-17) mg/dL Creatinine (0.52-1.04) mg/dL Glucose (74-99) mg/dL POC Glucose (mg/dL) 103 H 100 H (75-99) mg/dL Calcium (8.4-10.2) mg/dL AST (14-36) U/L ALT (4-34) U/L Alkaline Phosphatase (38-126) U/L Creatine Kinase (30-135) U/L 06/25/21 06/25/21 Range/Units 12:03 12:03 RDW (11.5-15.5) % Chloride 108 H (98-107) mmol/L BUN 28 H (7-17) mg/dL Creatinine 1.21 H (0.52-1.04) mg/dL Glucose 103 H (74-99) mg/dL POC Glucose (mg/dL) (75-99) mg/dL Calcium 10.7 H (8.4-10.2) mg/dL AST 262 H (14-36) U/L ALT 273 H (4-34) U/L Alkaline Phosphatase 183 H (38-126) U/L Creatine Kinase 4636 H* (30-135) U/L Assessment and Plan Assessment: This is a 85-year-old female with past medical history noted below Presented to the emergency room with progressive generalized weakness for 2 weeks. Patient was evaluated in the ER and admitted for further management of her medical problems noted below. 1. Acute rhabdomyolysis secondary to high-dose simvastatin 80 mg prescribed at home in addition to Zetia. Medication was discontinued. Patient started on aggressive IV fluid hydration. Repeat creatine kinase tomorrow. 2. Bradycardia with heart rate in the low 30s. Patient was seen and evaluated by cardiology. Plan for pacemaker implantation. Thyroid function test is normal. 3. Chronic kidney disease with mild acute kidney injury on presentation resolved with IV fluid 4. Mild hypercalcemia with elevated PTH level, parathyroid scan with no evidence of adenoma. Follow-up outpatient. Chronic medical problems: Type 2 diabetes, coronary artery disease with prior stent placement, hypertension Continue current regimen otherwise. Physical therapy evaluation. Continue IV fluid hydration with normal saline at the 100 mL per hour. Creatine kinase is elevated today compared to yesterday for unclear reason. Patient denies any muscle pain or myalgia. No joint pain. No skin rash. Repeat lab work in the morning.
[2021-06-25 17:15] LABS: Glucose,Whole Blood 121 mg/dL (75-99)
[2021-06-25] MEDS: CINACALCET 30 MG TAB PO SCH (17:46)
[2021-06-25] MEDS: hydrALAZINE HCL 50 MG TAB PO SCH ×2 (17:46→21:05)
[2021-06-25 20:30] LABS: Glucose,Whole Blood 135 mg/dL (75-99)
[2021-06-26] MEDS: SODIUM CHLORIDE 0.9% 1,000 ML IV SCH (04:32)
[2021-06-26] MEDS: LEVOTHYROXINE 75 MCG TAB PO SCH (06:23)
[2021-06-26 06:36] LABS: Glucose,Whole Blood 91 mg/dL (75-99)
[2021-06-26] MEDS: INSULIN ASPART (NovoLOG) 100 UNIT/ML VIAL SQ SCH ×4 (06:44→21:17)
[2021-06-26 08:27] LABS: Albumin 2.9 g/dL (3.5-5.0); Calcium 10.2 mg/dL (8.4-10.2); Magnesium 1.8 mg/dL (1.6-2.3); Potassium 4.1 mmol/L (3.5-5.1); Total Bilirubin 0.5 mg/dL (0.2-1.3); Total Protein 5.8 g/dL (6.3-8.2)
[2021-06-26] MEDS: hydrALAZINE HCL 50 MG TAB PO SCH ×3 (09:29→21:17)
[2021-06-26] MEDS: CINACALCET 30 MG TAB PO SCH (09:30)
[2021-06-26] MEDS: ASPIRIN 81 MG PO SCH (09:30)
[2021-06-26] MEDS: ZINC SULFATE 220 MG CAP PO SCH (09:30)
[2021-06-26] MEDS: allopurinoL 100 MG TAB PO SCH (09:30)
[2021-06-26] MEDS: VIT A,C & E-LUTEIN-MINERALS 1 EACH TAB PO SCH (09:30)
[2021-06-26] MEDS: CYANOCOBALAMIN 500 MCG TAB PO SCH (09:30)
[2021-06-26 11:02] LABS: Angiotensin-1 Converting Enz. 29 U/L (8-52)
[2021-06-26 12:01] LABS: Glucose,Whole Blood 159 mg/dL (75-99)
[2021-06-26] MEDS: amLODIPine 5 MG TAB PO SCH (13:01)
--- NOTE | 2021-06-26 13:02 | ECHOF ---
Referral Reason:Bradycardia MEASUREMENTS -------- HEIGHT: 162.6 cm WEIGHT: 65.8 kg BP: IVSd: 1.3 cm (0.6 - 1.1) LVIDd: 4.2 cm (3.9 - 5.3) LVPWd: 1.6 cm (0.6 - 1.1) IVSs: 1.8 cm LVIDs: 3.7 cm LVPWs: 1.5 cm LAESV Index (A-L): 26.32 ml/m IVSd: 1.1 cm (0.6 - 1.1) LVIDd: 5.2 cm (3.9 - 5.3) LVPWd: 0.9 cm (0.6 - 1.1) IVSs: 1.4 cm LVIDs: 3.4 cm LVPWs: 2.0 cm EDV(Teich): 130 ml ESV(Teich): 47 ml EF(Teich): 63 % %FS: 35 % SV(Teich): 82 ml Ao Diam: 2.7 cm (2.0 - 3.7) AV Cusp: 1.6 cm (1.5 - 2.6) LA Diam: 3.9 cm (2.7 - 3.8) MV EXCURSION: 12.148 mm (> 18.000) MV EF SLOPE: 28 mm/s (70 - 150) EPSS: 1.8 cm MV E Dwayne: 1.30 m/s MV DecT: 201 ms MV A Dwayne: 0.86 m/s MV E/A Ratio: 1.51 AR PHT: 884 ms RAP: 5.00 mmHg RVSP: 60.13 mmHg FINDINGS -------- This was a technically difficult study with suboptimal views. The left ventricular size is normal. There is moderate concentric left ventricular hypertrophy. O verall left ventricular systolic function is moderately impaired with, an EF between 35 - 40 %. The right ventricle is normal in size. The left atrial size is normal. The right atrial size is normal. 5.0mg of Lumason was utilized for enhancement of images The aortic valve is trileaflet and appears structurally normal. There is moderate aortic regurgitat ion. The mitral valve is normal. Mild mitral regurgitation is present. The tricuspid valve appears structurally normal. Mild tricuspid regurgitation present. Right vent ricular systolic pressure is normal at < 35 mmHg. There is no pulmonic regurgitation present. The aortic root size is normal. There is no pericardial effusion. CONCLUSIONS -------- 1. The left ventricular size is normal. 2. There is moderate concentric left ventricular hypertrophy. 3. Overall left ventricular systolic function is moderately impaired with, an EF between 35 - 40 %. 4. There is moderate aortic regurgitation. 5. Mild mitral regurgitation is present. 6. Mild tricuspid regurgitation present. 7. There is no pericardial effusion. SIMPLEX PRINTER INSTALLER: Cleopatra Costa RDCS
--- NOTE | 2021-06-26 14:00 | PN ---
PROGRESS NOTE Patient is seen for followup for acute kidney injury. Her renal function has improved, with creatinine down to 1.17 from 1.5 on initial admission. Patient is currently maintained on IV fluids. On examination today, blood pressure was 158/70, heart rate 52 per minute. She is afebrile. EXAMINATION OF THE HEART: S1 and S2. EXAMINATION OF LUNGS: Bilateral breath sounds are heard. Decreased breath sounds at the bases. Abdomen is soft, non-tender. Examination of lower extremities shows edema 1+ bilaterally. FRAME POLISHER EXAM: Grossly intact. Labs show sodium 137, potassium 4.1, chloride 109, BUN 23, creatinine 1.17. CK is down to 1505. ASSESSMENT: 1. Acute kidney injury, currently improving, associated with rhabdomyolysis. 2. Chronic kidney disease, stage 4. Baseline creatinine 1.5 to 1.7 secondary to ischemic nephropathy. 3. Hypercalcemia, maintained on Sensipar. Calcium is down, 10.2. PTH was 101, vitamin D 47. No evidence of parathyroid adenoma on outpatient workup. 4. Type 2 diabetes. 5. Hypertension with chronic kidney disease. 6. Bradycardia, being followed by Cardiology. PLAN: Continue off of statins and . Decrease IV fluids to about 60 mL/hour. Increase oral intake. Continue with Sensipar and repeat labs in a.m. MMODL / IJN: [id number] /
--- NOTE | 2021-06-26 14:51 | PN ---
PROGRESS NOTE Mrs. Doyle was admitted to the hospital with some generalized weakness with a question of bradycardia. However her heart rate is in the 50s and she is asymptomatic at this time. She may have underlying sick sinus syndrome, but today I had her ambulate a little bit in the room. Heart rate went up from about 55-65. She also had rhabdomyolysis, but right now she is doing better clinically. She has history of CAD, prior PCI, hypertension, hyperlipidemia. Vitals are stable. No JVD. S1, S2 heard normally. Short systolic murmur noted. Lungs reveal diminished air entry. Abdomen is soft, nontender. Lower extremities reveal diminished pulses. Central nervous system is normal. IMPRESSION: 1. Asymptomatic bradycardia. 2. Coronary artery disease with prior PCI. 3. Hypertension. 4. Hypothyroidism. Her thyroid functions appear to be normal. No intervention at this time. Patient can be discharged and can follow up with her primary passenger conductor in the next two weeks. MMODL / IJN: [id number] /
[2021-06-26 16:38] LABS: Glucose,Whole Blood 104 mg/dL (75-99)
--- NOTE | 2021-06-26 17:18 | P.PN ---
Subjective Patient was seen and evaluated by me this morning. No acute events overnight. Heart rate in the 50s. Objective - Vital Signs Vital signs: Vital Signs Temp 97.0 F L 06/26/21 08:00 Pulse 58 L 06/26/21 14:00 Resp 18 06/26/21 14:00 BP 192/82 06/26/21 12:05 Pulse Ox 99 06/26/21 12:05 Intake & Output 06/25/21 06/26/21 06/26/21 18:59 06:59 18:59 Intake Total 390 420 180 Output Total 150 700 Balance 390 270 -520 Weight 66 kg Intake: Intake, IV Titration 300 Amount Sodium Chloride 0.9% 1, 300 000 ml @ 100 mls/hr IV . Q10H [facility] Rx#:[id number] Oral 390 120 180 Output: Urine 150 700 Other: Voiding Method External Catheter External Catheter External Catheter # Voids 1 # Bowel Movements 1 1 - Exam General: The patient is awake and alert, in no distress Eye: there is normal conjunctiva bilaterally. Neck: The neck is supple, there is no JVD. Cardiovascular: Normal S1-S2, no S3-S4, no murmurs. Respiratory: Lungs clear to auscultation bilaterally Gastrointestinal: Abdomen is soft, nontender Musculoskeletal: There is no pedal edema. Neurological:. Speech is normal. Skin: Skin is warm and dry - Labs CBC & Chem 7: 06/25/21 12:03 06/26/21 07:46 Labs: Abnormal Lab Results - Last 24 Hours (Table) 06/22/21 06/25/21 06/26/21 Range/Units 06:39 20:28 07:46 Chloride 109 H (98-107) mmol/L BUN 23 H (7-17) mg/dL Creatinine 1.17 H (0.52-1.04) mg/dL POC Glucose (mg/dL) 135 H (75-99) mg/dL AST 190 H (14-36) U/L ALT 217 H (4-34) U/L Alkaline Phosphatase 159 H (38-126) U/L Creatine Kinase 3431 H* 1505 H* (26-186) U/L Total Protein 5.8 L (6.3-8.2) g/dL Albumin 2.9 L (3.5-5.0) g/dL 06/26/21 06/26/21 Range/Units 11:54 16:36 Chloride (98-107) mmol/L BUN (7-17) mg/dL Creatinine (0.52-1.04) mg/dL POC Glucose (mg/dL) 159 H 104 H (75-99) mg/dL AST (14-36) U/L ALT (4-34) U/L Alkaline Phosphatase (38-126) U/L Creatine Kinase (26-186) U/L Total Protein (6.3-8.2) g/dL Albumin (3.5-5.0) g/dL Assessment and Plan Assessment: This is a 85-year-old female with past medical history noted below Presented to the emergency room with progressive generalized weakness for 2 weeks. Patient was evaluated in the ER and admitted for further management of her medical problems noted below. 1. Acute rhabdomyolysis secondary to high-dose simvastatin 80 mg prescribed at home in addition to Zetia. Medication was discontinued. Patient started on a ggressive IV fluid hydration. Repeat creatine kinase trending down. 2. Bradycardia with heart rate in the low 30s at some point. Patient was seen and evaluated by cardiology. Pacemaker discussed with the cardiology cleared patient for discharge. Her heart rate is currently in the 50s. Patient is a symptomatic. Thyroid function test is normal. 3. Chronic kidney disease with mild acute kidney injury on presentation resolved with IV fluid 4. Mild hypercalcemia with elevated PTH level, parathyroid scan with no evidence of adenoma. Follow-up outpatient. Chronic medical problems: Type 2 diabetes, coronary artery disease with prior stent placement, hypertension Continue current regimen otherwise. Physical therapy evaluation. Decrease IV fluid to 50 mL per hour. Anticipate discharge tomorrow.
[2021-06-26] MEDS: ARTIFICIAL TEARS-HYPROMELLOSE DROPS 15 ML BTL BOTH EYES PRN (17:49)
[2021-06-26 20:39] LABS: Glucose,Whole Blood 115 mg/dL (75-99)
[2021-06-27 00:38] VITALS: RESP 16
[2021-06-27] MEDS: LEVOTHYROXINE 75 MCG TAB PO SCH (06:04)
[2021-06-27 06:08] LABS: Glucose,Whole Blood 121 mg/dL (75-99)
[2021-06-27] MEDS: INSULIN ASPART (NovoLOG) 100 UNIT/ML VIAL SQ SCH ×2 (06:08→12:12)
[2021-06-27 08:34] VITALS: PULSE 68; TEMP 98.3
[2021-06-27] MEDS ORDERED: traMADol 50 MG TAB PO STA (09:38)
[2021-06-27 09:41] LABS: Albumin 3.5 g/dL (3.5-5.0); Calcium 10.5 mg/dL (8.4-10.2); Potassium 4.3 mmol/L (3.5-5.1); Total Bilirubin 0.5 mg/dL (0.2-1.3); Total Protein 6.7 g/dL (6.3-8.2)
[2021-06-27] MEDS: VIT A,C & E-LUTEIN-MINERALS 1 EACH TAB PO SCH (10:16)
[2021-06-27] MEDS: ASPIRIN 81 MG PO SCH (10:16)
[2021-06-27] MEDS: hydrALAZINE HCL 50 MG TAB PO SCH (10:16)
[2021-06-27] MEDS: ZINC SULFATE 220 MG CAP PO SCH (10:16)
[2021-06-27] MEDS: CYANOCOBALAMIN 500 MCG TAB PO SCH (10:17)
[2021-06-27] MEDS: allopurinoL 100 MG TAB PO SCH (10:17)
[2021-06-27] MEDS: amLODIPine 5 MG TAB PO SCH (10:17)
[2021-06-27] MEDS: CINACALCET 30 MG TAB PO SCH (10:17)
[2021-06-27] MEDS: ARTIFICIAL TEARS-HYPROMELLOSE DROPS 15 ML BTL BOTH EYES PRN (10:19)
--- NOTE | 2021-06-27 10:43 | P.PN ---
Subjective This is a pleasant 85-year-old female admitted to the hospital with generalized weakness and questionable bradycardia. Telemetry tracings reviewed, heart rate remains in the 60-70 range. Blood pressure 158/73. She is seen and examined sitting up in the chair in no acute distress. She is complaining of neck stiffness which is chronic for her. She has no symptoms of chest pain, shortness of breath, dizziness or palpitations. GENERAL: Well-appearing, well-nourished and in no acute distress. NECK: Supple without JVD or thyromegaly. LUNGS: Breath sounds clear to auscultation bilaterally. Respiration equal and unlabored. No wheezes, rales or rhonchi. HEART: Regular rate and rhythm with systolic ejection murmur at the base, no r ubs or gallops. S1 and S2 heard. EXTREMITIES: Normal range of motion, no edema. No clubbing or cyanosis. Peripheral pulses intact. ASSESSMENT Bradycardia, asymptomatic Coronary artery disease status post PCI Hypertension Hypothyroidism PLAN Stable from a cardiac perspective. Follow-up with Dr. Oliver upon discharge. Nurse Practitioner note has been reviewed, I agree with a documented findings a nd plan of care. Patient was seen and examined. Objective - Vital Signs Vital signs: Vital Signs Temp 98.3 F 06/27/21 08:00 Pulse 68 06/27/21 08:00 Resp 16 06/27/21 08:00 BP 167/74 06/27/21 08:00 Pulse Ox 98 06/27/21 08:00 Intake & Output 06/26/21 06/27/21 06/27/21 18:59 06:59 18:59 Intake Total 180 Output Total 975 800 Balance -795 -800 Weight 66.5 kg Intake: Oral 180 Output: Urine 975 800 Other: Voiding Method External Catheter External Catheter - Labs CBC & Chem 7: 06/25/21 12:03 06/27/21 09:01 Labs: Abnormal Lab Results - Last 24 Hours (Table) 06/22/21 06/26/21 06/26/21 Range/Units 06:39 11:54 16:36 POC Glucose (mg/dL) 159 H 104 H (75-99) mg/dL Creatine Kinase 3431 H* (26-186) U/L 06/26/21 06/27/21 Range/Units 20:38 06:07 POC Glucose (mg/dL) 115 H 121 H (75-99) mg/dL Creatine Kinase (26-186) U/L
[2021-06-27 12:00] LABS: Glucose,Whole Blood 109 mg/dL (75-99)
[2021-06-27 12:54] VITALS: BP 184/73
--- NOTE | 2021-06-27 13:32 | P.DS ---
Providers Date of admission: 06/22/21 18:53 Expected date of discharge: 06/27/21 Attending physician: Kinza Fuchs MD Consults: 06/22/21 18:53 Consult Physician Urgent Consulting Provider: aMlik Becerra Consult Reason/Comments: acute rhabdo, recent medication changes Do you want consulting provider notified?: Yes 06/24/21 14:04 Consult Physician Urgent Consulting Provider: Wood Alegria Consult Reason/Comments: Bradycardia Do you want consulting provider notified?: Yes Primary care physician: Nely Linton MD Hospital Course: This is a 85-year-old female with past medical history noted below Presented to the emergency room with progressive generalized weakness for 2 weeks. Patient was evaluated in the ER and admitted for further management of her medical problems noted below. 1. Acute rhabdomyolysis secondary to high-dose simvastatin 80 mg prescribed at home in addition to Zetia. Medication was discontinued. Patient started on aggressive IV fluid hydration. Repeat creatine kinase trending down. 2. Bradycardia with heart rate in the low 30s at some point. Patient was seen and evaluated by cardiology. Pacemaker discussed with the cardiology cleared patient for discharge. Her heart rate is currently in the 50s. Patient is a symptomatic. Thyroid function test is normal. 3. Chronic kidney disease with mild acute kidney injury on presentation resolved with IV fluid 4. Mild hypercalcemia with elevated PTH level, parathyroid scan with no evidence of adenoma. Follow-up outpatient. Chronic medical problems: Type 2 diabetes, coronary artery disease with prior stent placement, hypertension Patient will be discharged home in stable condition. Physical exam: General: The patient is awake and alert, in no distress Eye: there is normal conjunctiva bilaterally. Neck: The neck is supple, there is no JVD. Cardiovascular: Normal S1-S2, no S3-S4, no murmurs. Respiratory: Lungs clear to auscultation bilaterally Gastrointestinal: Abdomen is soft, nontender Musculoskeletal: There is no pedal edema. Neurological:. Speech is normal. Skin: Skin is warm and dry Patient Condition at Discharge: Stable Plan - Discharge Summary New Discharge Prescriptions: New hydrALAZINE HCL [Apresoline] 100 mg PO TID #90 tablet Cinacalcet [Sensipar] 30 mg PO DAILY #30 tab amLODIPine [Norvasc] 5 mg PO DAILY #30 tab Continue Levothyroxine Sodium [Synthroid] 75 mcg PO DAILY Vit C/E/Zn/Coppr/Lutein/Zeaxan [Preservision Areds 2 Softgel] 1 cap PO DAILY Cyanocobalamin (Vitamin B-12) [Vitamin B-12] 3,000 mcg PO DAILY Nitroglycerin Sl Tabs [Nitrostat] 0.4 mg SUBLINGUAL Q5M PRN tab PRN Reason: Chest Pain Latanoprost [Xalatan 0.005%] 1 drop BOTH EYES HS Zinc Sulfate [Orazinc] 220 mg PO DAILY cap Dorzolamide/Timolol/Pf [Dorzolamide 2%-Timolol 0.5%] 1 drop BOTH EYES BID allopurinoL [Zyloprim] 50 mg PO DAILY Aspirin 81 mg PO DAILY Biotin 10,000 mcg PO DAILY Discontinued Ezetimibe [Zetia] 10 mg PO DAILY Simvastatin [Zocor] 80 mg PO DAILY Discharge Medication List Cyanocobalamin (Vitamin B-12) [Vitamin B-12] 3,000 mcg PO DAILY 10/11/20 [History] Levothyroxine Sodium [Synthroid] 75 mcg PO DAILY 10/11/20 [History] Vit C/E/Zn/Coppr/Lutein/Zeaxan [Preservision Areds 2 Softgel] 1 cap PO DAILY 10/11/20 [History] Nitroglycerin Sl Tabs [Nitrostat] 0.4 mg SUBLINGUAL Q5M PRN tab 10/19/20 [Rx] Aspirin 81 mg PO DAILY 11/01/20 [History] Latanoprost [Xalatan 0.005%] 1 drop BOTH EYES HS 11/01/20 [History] Zinc Sulfate [Orazinc] 220 mg PO DAILY cap 11/02/20 [Rx] Biotin 10,000 mcg PO DAILY 06/22/21 [History] Dorzolamide/Timolol/Pf [Dorzolamide 2%-Timolol 0.5%] 1 drop BOTH EYES BID 06/22/21 [History] allopurinoL [Zyloprim] 50 mg PO DAILY 06/22/21 [History] Cinacalcet [Sensipar] 30 mg PO DAILY #30 tab 06/27/21 [Rx] amLODIPine [Norvasc] 5 mg PO DAILY #30 tab 06/27/21 [Rx] hydrALAZINE HCL [Apresoline] 100 mg PO TID #90 tablet 06/27/21 [Rx] Follow up Appointment(s)/Referral(s): Nely Linton MD [Primary Care Provider] - 1-2 days Percy Oliver MD [STAFF PHYSICIAN] - 2 Weeks
--- NOTE | 2021-06-27 13:39 | PN ---
PROGRESS NOTE Patient is seen for followup for hypercalcemia and acute kidney injury. Renal function had improved with creatinine down to 1.17 yesterday with serum creatinine back up to 1.3, which is not far from her baseline. Calcium had increased to 10.5. I see the Sensipar has been increased to daily. EXAMINATION: Today patient is comfortable. Blood pressure 167/74, heart rate 68 per minute she is afebrile. Examination of the heart S1, S2. Examination of the lungs, bilateral breath sounds are heard. Abdomen is soft, nontender. Examination of lower extremities shows trace edema bilaterally. [employer] exam is grossly intact. LABS: Show sodium of 135, potassium 4.3, chloride 102, BUN 23, creatinine 1.3, calcium is 10.5. ASSESSMENT: 1. Acute kidney injury associated with hypercalcemia and rhabdomyolysis, improved. Serum creatinine staying at 1.2-1.3. Patient is stable for discharge from nephrology standpoint. 2. Chronic kidney disease stage 4. Baseline creatinine 1.5 and has been up to 1.7. Etiology ischemic nephropathy. 3. Hypercalcemia, maintained on Sensipar. PTH was 101, calcium had gone down to 10.2, increased back up to 10.5 today, Sensipar has been increased to daily which we can continue. 4. Hypertension with chronic kidney disease. Blood pressure is elevated. Expect further improvement once patient is discharged. 5. Bradycardia, being followed by Cardiology. Not on any beta blockers at this time. Patient is maintained on hydralazine. PLAN: Patient is stable for discharge. Continue Sensipar daily for now and follow up as outpatient. MMODL / IJN: [id number] /
[2021-06-27 14:44] LABS: Albumin 2.82 g/dL (3.80-4.90); Gamma Globulin 0.84 g/dL (0.70-1.50)
[2021-06-28 18:53] LABS: Vitamin D, 1, 25-Dihydroxy 26 pg/mL (20 - 79)
--- NOTE | 2021-06-29 13:51 | CDI ---
Documentation Clarification Form Date: 06/29/2021 01:42:32 PM From: Asim Buitrago Admit Date: 06/22/2021 06:53:00 PM Patient Name: Mima Doyle Visit Number: [id number] Discharge Date: 06/27/2021 02:39:00 PM ATTENTION: The Clinical Documentation Specialists (CDI) and [facility] Coding Staff appreciate your assistance in clarifying documentation. Please respond to the clarification below the line at the bottom and electronically sign. The CDI & [facility] Coding staff will review the response and follow-up if needed. Please note: Queries are made part of the Legal Health Record. If you have any questions, please contact the author of this message via ITS. Dr. Ray Bar The patients principal diagnosis the diagnosis that was chiefly responsible for the admission - has not been clearly identified and clarification is requested. Your discharge summary indicates rhabdomyolosis, bradycardia and acute renal failure. Need to know which diagnosis most prompted the inpatient admission. The patient presented with weakness. History/Risk factors: on simvastatin-discontinued Clinical Indicators: Lab findings: acute renal failure, rhabdomyolosis Radiology findings: Vital Signs: bradycardia Treatment: IV NaCL Consults: cardiology In your professional opinion, can you please clarify which diagnosis, after study, was the reason chiefly responsible for the admission? [ X ] rhabdomyolosis [ ] acute renal failure [ ] Other, please specify [ ] Unable to determine [ ] bradycardia MTDD
[2021-06-30] MEDS ORDERED: CINACALCET 30 MG TAB PO SCH (09:00)
== END 2021-06-27 14:39 | disposition home or self-care (01) | DRG 558 ==
LOC: EC 13:43 → 5NMEDONC 18:53 → 3SCARD 06-24 17:02
PROVIDERS: ADMIT Internal Medicine; ATTEND Internal Medicine
DX: M62.82 Rhabdomyolysis (principal); N17.9 Acute kidney failure, unspecified; N18.4 Chronic kidney disease, stage 4 (severe); R00.1 Bradycardia, unspecified; E03.9 Hypothyroidism, unspecified; E78.5 Hyperlipidemia, unspecified; E83.52 Hypercalcemia; Z20.822 Contact with and (suspected) exposure to COVID-19; I25.10 Atherosclerotic heart disease of native coronary artery without angina pectoris; I25.2 Old myocardial infarction; M43.6 Torticollis; T46.6X5A Adverse effect of antihyperlipidemic and antiarteriosclerotic drugs, initial encounter; E11.22 Type 2 diabetes mellitus with diabetic chronic kidney disease; I12.9 Hypertensive chronic kidney disease with stage 1 through stage 4 chronic kidney disease, or unspecified chronic kidney disease; Z79.4 Long term (current) use of insulin; Z79.82 Long term (current) use of aspirin; Z79.890 Hormone replacement therapy; Z79.899 Other long term (current) drug therapy; Z80.51 Family history of malignant neoplasm of kidney; Z90.710 Acquired absence of both cervix and uterus; Z95.5 Presence of coronary angioplasty implant and graft; R74.01 Elevation of levels of liver transaminase levels; Z86.16 Personal history of COVID-19
CPT/HCPCS: 36415; 76705; 78071; 80053; 81001; 82164; 82306; 82550; 82652; 83036; 83605; 83735; 83970; 84165; 84443; 84484; 85025; 85610; 85730; 86334; 86335; 87635; 93005; 93306; 99285

== ENCOUNTER → 2021-12-05 | Day surgery (SDC) | payer MEDICARE ==
[~2021-12-05] MED LIST changes: +BENZOCAINE SPRAY 1 CAN TOPICAL ONE; -DEXAMETHASONE SOD PHOSPHATE 4 MG/ML 1 ML VIAL IV ONE; -HYDROmorphone 0.5 MG/0.5 ML SYRINGE IVP PRN; -LACTATED RINGERS 1,000 ML IV SCH; -MIDAZOLAM 2 MG/2 ML VIAL IV PRN; -ONDANSETRON 4 MG/2 ML VIAL IVP ONE; +SODIUM CHLORIDE 0.9% 500 ML 500 ML IV ONE; +fentaNYL (PF) 50 MCG/ML 2 ML AMP IV ONE; +fentaNYL (PF) 50 MCG/ML 2 ML AMP ONE
[2021-12-05 08:04] LABS: Glucose,Whole Blood 130 mg/dL (75-99)
[2021-12-05 08:09] VITALS: TEMP 97.9
[2021-12-05] MEDS: MIDAZOLAM 2 MG/2 ML VIAL IV ONE ×2 (09:07→09:12)
[2021-12-05 09:24] VITALS: RESP 12
[2021-12-05 09:31] VITALS: BP 148/76; PULSE 50
--- NOTE | 2021-12-05 10:12 | ECHOT ---
TRANSESOPHAGEAL ECHOCARDIOGRAM INDICATION: Mitral regurgitation. PROCEDURE NOTE: After obtaining informed consent, transesophageal echocardiogram was performed in left lateral position using an Omniplane probe. Local and IV sedation were obtained with 1.5 mg of Versed and 50 mcg of fentanyl. Patient tolerated the procedure well without any obvious immediate complications. Patient received moderate conscious sedation. Total sedation time was 10 minutes. We performed 2D, color Doppler and spectral analysis. FINDINGS: 1. Mitral valve appears anatomically normal. There is moderate central mitral regurgitation noted. Mitral valve leaflets appear thickened. 2. Left atrium appears mildly enlarged. 3. Right atrium and right ventricle seen within normal limits. 4. Left ventricle appears mildly enlarged with normal LV function with an ejection fraction of 55%. 5. Aortic valve is a 3-leaflet valve and appears calcified without any restriction in leaflet mobility with mild to moderate aortic regurgitation. 6. There is moderate tricuspid regurgitation. CONCLUSIONS: 1. Normal LV systolic function. 2. Moderate mitral and tricuspid regurgitation. 3. Mild to moderate aortic regurgitation. MMODL / IJN: [id number] /
== END ==
LOC: CATHCVL 07:40
PROVIDERS: ATTEND Internal Medicine Cardiovascular Disease
DX: I08.1 Rheumatic disorders of both mitral and tricuspid valves (principal)
CPT/HCPCS: 93312; 93320; 93325; J2250; J3010